=== PATIENT | male | born 1950 | race Caucasian/White ===

== ENCOUNTER 2016-06-10 17:17 | Inpatient (IN) | payer MEDICARE, OTHER ==
[~2016-06-10] VITALS: Ht 162.6 cm; Wt 75.0 kg
[2016-06-10] VITALS (8 sets, daily range): BP systolic 147–167; BP diastolic 69–81; PULSE 86–98; TEMP 98.9
[~2016-06-10 17:17] MED LIST: APR50 PO; ASP81 PO; ATOR40TA68 PO; CALC667T PO; ERGO500037 PO; FOLI-49 PO; GABA300C16 PO; HYDR-3498 PO; LANT3I SC; MONT10TA21 PO; NIFE60TA12 PO; NOVO3I SC; OMEP20CA16 PO; TAMS0.4C2 PO
[2016-06-10] MEDS ORDERED: LEVOFLOXACIN 500MG/D5W (PMX) 100 ML IV STA (17:36)
[2016-06-10] MEDS ORDERED: ALBUTEROL 0.5% (NEB) 2.5 MG/0.5 ML AMP INH ONE (18:00)
[2016-06-10] MEDS ORDERED: ACETAMINOPHEN 325 MG TAB PO ONE (18:00)
[2016-06-10] MEDS ORDERED: IPRATROPIUM (NEB) 0.5 MG/2.5 ML AMP INH ONE (18:00)
--- NOTE | 2016-06-10 18:11 | RADRPT ---
PROCEDURE: XR Chest. CLINICAL INDICATION: Shortness of breath. TECHNIQUE: Single frontal view. COMPARISON: 04/16/2016. FINDINGS: There is new bilateral interstitial disease consistent with pulmonary edema. The lungs are otherwis e clear with no focal airspace disease to suggest pneumonia. The heart is enlarged. There is no pleural effusion. There is no pneumothorax. IMPRESSION: 1. Interstitial pulmonary edema. 2. Cardiomegaly. RPTAT: QQ .Ken Jarvis MD, MD Date Time Electronically viewed and signed by .Ken Jarvis MD, MD on 06/10/2016 18:11 .R/
[2016-06-10 18:20] LABS: BASOPHILS % 0.3 % (0.0-2.0); EOSINOPHILS # 0.1 10^3/ul (0.0-0.5); EOSINOPHILS % 0.7 % (0.0-7.0); HEMATOCRIT 31.8 % (42.0-52.0); HEMOGLOBIN 10.5 g/dl (14.0-18.0); LYMPHOCYTES # 1.7 10^3/ul (0.8-2.9); LYMPHOCYTES % 12.7 % (15.0-51.0); MEAN CORPUSCULAR HEMOGLOBIN 28.6 pg (29.0-33.0); MEAN CORPUSCULAR HGB CONC 33.1 g/dl (32.0-37.0); MEAN CORPUSCULAR VOLUME 86.3 fl (82.0-101.0); MEAN PLATELET VOLUME 10.2 fl (7.4-10.4); MONOCYTE # 1.4 10^3/ul (0.3-0.9); MONOCYTES % 10.2 % (0.0-11.0); NEUTROPHIL # 10.3 10^3/ul (1.6-7.5); NEUTROPHILS % 76.1 % (39.0-77.0); PLATELET COUNT 167 10^3/UL (140-440); RED BLOOD COUNT 3.68 10^6/ul (4.70-6.10); RED CELL DISTRIBUTION WIDTH 15.9 % (11.5-14.5); UNCORRECTED WBC 13.5 10^3/ul (4.8-10.8); WHITE BLOOD COUNT 13.5 10^3/ul (4.8-10.8)
[2016-06-10 18:22] LABS: CONDITION 1; LH ANALYZER COMMENTS 1
[2016-06-10 18:25] LABS: ALBUMIN 4.4 g/dl (3.3-4.9)
[2016-06-10 18:26] LABS: CHLORIDE 93 mmol/L (97-110); POTASSIUM 5.2 mmol/L (3.5-5.1); SODIUM 139 mmol/L (135-144)
[2016-06-10 18:28] LABS: ANION GAP 26 (8-16); CARBON DIOXIDE 25 mmol/L (21-31); CREATININE 11.14 mg/dl (0.61-1.24)
[2016-06-10 18:29] LABS: ALANINE AMINOTRANSFERASE 23 IU/L (13-69); ALBUMIN/GLOBULIN RATIO 1.12; ALKALINE PHOSPHATASE 117 IU/L (42-121); ASPARTATE AMINO TRANSFERASE < 8 IU/L (15-46); BLOOD UREA NITROGEN 92 mg/dl (7-20); CALCIUM 8.8 mg/dl (8.4-10.2); GLUCOSE 163 mg/dl (70-220); TOTAL PROTEIN 8.3 g/dl (6.1-8.1)
[2016-06-10] MEDS ORDERED: ONDANSETRON 4 MG INJ IV PRN ×3 (20:00→21:30)
[2016-06-10] MEDS ORDERED: ACETAMINOPHEN 325 MG TAB PO PRN ×2 (20:00→20:30)
--- NOTE | 2016-06-10 20:01 | ERA ---
ER Documentation Chief Complaint Date/Time DATE: 06/10/16 TIME: 19:56 Chief Complaint weak, sob, fell x2 last night, twitiching, missed dialysis yest d/t fever HPI This is a 66-year-old dialysis patient who missed dialysis on Saturday. He says gotten shortness of breath over the past 2 days. Is having some dyspnea on exertion and orthopnea. Is also had a cough with occasional productive white sputum says that he has had subjective fever. But none documented. He says yesterday he felt very weak and his legs gave way twice but no syncope. He said he just feels general malaise and generalized weakness no focal neurological complaints. No chest pain no vomiting diarrhea or abdominal pain. ROS All systems reviewed and are negative except as per history of present illness. Medications Home Meds Active Scripts Insulin Glargine* (Lantus*) 100 Unit/Ml Soln, 15 UNIT SC QHS for 10 Days, #1 BOTTLE Prov:VLADIMIR CEDEÑO MD 04/25/16 Insulin Aspart* (Novolog Insulin Pen*) 100 Unit/Ml Soln, 4 UNIT SC AC MEALS for 10 Days, #1 BOTTLE Prov:VLADIMIR CEDEÑO MD 04/25/16 Hydrocodone Bit-Acetaminophen (Hydrocodone Bit-APAP) 5-325MG Tablet, 1 TAB PO Q6H Y for MODERATE PAIN LEVEL 4-6 for 10 Days, #30 TAB Prov:VLADIMIR CEDEÑO MD 04/25/16 Gabapentin* (Gabapentin*) 300 Mg Capsule, 300 MG PO BID for 30 Days, CAP Prov:MADI RAYMOND 03/20/16 Aspirin (Aspirin) 81 Mg Chew, 81 MG PO DAILY for 30 Days Prov:MADI RAYMOND 03/20/16 Hydralazine Hcl* (Hydralazine Hcl*) 50 Mg Tab, 50 MG PO TID, #90 TAB Prov:MILTON CARTER MD 11/08/15 Reported Medications Atorvastatin* (Atorvastatin*) 40 Mg Tablet, 40 MG PO DAILY 06/30/15 Folic Acid* (Folic Acid*) 1 Mg Tablet, 1 MG PO DAILY, TAB 11/18/14 Omeprazole* (Omeprazole*) 20 Mg Capsule.dr, 20 MG PO DAILY, CAP 11/18/14 Montelukast Sodium* (Singulair*) 10 Mg Tablet, 10 MG PO HS, TAB 11/18/14 Calcium Acetate (Calcium Acetate) 667 Mg Tablet, 667 MG PO TID 05/31/13 Ergocalciferol (Vitamin D2) (VITAMIN D2) 50,000 Unit Capsule, 55978 UNIT PO WEEKLY 05/31/13 Nifedipine* (Nifedical XL*) 60 Mg/Bottle Tab.osm.24, 60 MG PO BID 05/31/13 Tamsulosin Hcl* (Tamsulosin Hcl*) 0.4 Mg Cap.er.24h, 0.4 MG PO DAILY 05/31/13 Allergies Allergies: Coded Allergies: No Known Allergy (Unverified , 04/16/16) PMhx/Soc History of Surgery: Yes (RT SHOULDER SX) Anesthesia Reaction: No Hx Neurological Disorder: Yes (NEROPATHY) Hx Respiratory Disorders: No Hx Cardiac Disorders: Yes (HTN, HDL) Hx Psychiatric Problems: No Hx Miscellaneous Medical Probl: Yes (DM, END STAGE RENAL (DIALYSIS 3X/WEEK)) Hx Alcohol Use: No Hx Substance Use: No Hx Tobacco Use: No Smoking Status: Never smoker FmHx Family History: No coronary disease Physical Exam Vitals Vital Signs Date Time Temp Pulse Resp B/P Pulse Ox O2 Delivery O2 Flow Rate FiO2 06/10/16 19:00 98.9 106 25 168/69 96 Nasal Cannula 6.0 06/10/16 19:00 Nasal Cannula 6 06/10/16 19:00 Nasal Cannula 6.0 06/10/16 18:18 89 18 95 Nasal Cannula 2.0 06/10/16 17:23 100.8 93 28 168/77 87 Physical Exam Const: Well-developed, well-nourished Head: Atraumatic, normocephalic Eyes: Normal Conjunctiva, PERRLA, EOMI, normal sclera, no nystagmus ENT: Normal External Ears, Nose and Mouth, moist mucus membranes. Neck: Full range of motion. No meningismus, no lymphadenopathy. Resp: Some mild labored breathing with diffuse scattered rhonchi throughout lung gandara] Cardio: Regular rate and rhythm, no murmurs, S1 S2 present Abd: Soft, non tender x 4, non distended. Normal bowel sounds, no guarding or rebound, no pulsitile abdominal masses or bruits Skin: No petechiae or rashes, no ecchymosis , no maculopapular rash Back: No midline or flank tenderness Ext: No cyanosis, or edema, FROM x 4, normal inspection, neurovascularly intact x 4 Neur: Awake and alert, STR 5/5 x 4, sensation intact x 4, no focal findings, cerebellum intact Psych: Normal Mood and Affect Result Diagram: 06/10/16 7455 06/10/16 1755 Results 24 hrs Laboratory Tests Test 06/10/16 17:55 Alanine Aminotransferase (ALT/SGPT) 23IU/L Albumin 4.4g/dl Albumin/Globulin Ratio 1.12 Alkaline Phosphatase 117IU/L Anion Gap 26 Aspartate Amino Transf (AST/SGOT) < 8IU/L Basophils # 0.010^3/ul Basophils % 0.3% Blood Morphology Comment Blood Urea Nitrogen 92mg/dl Calcium Level 8.8mg/dl Carbon Dioxide Level 25mmol/L Chloride Level 93mmol/L Creatinine 11.14mg/dl Direct Bilirubin 0.00mg/dl Eosinophils # 0.110^3/ul Eosinophils % 0.7% Globulin 3.90g/dl Glucose Level 163mg/dl Hematocrit 31.8% Hemoglobin 10.5g/dl Indirect Bilirubin 0.0mg/dl Lymphocytes # 1.710^3/ul Lymphocytes % 12.7% Mean Corpuscular Hemoglobin 28.6pg Mean Corpuscular Hemoglobin Concent 33.1g/dl Mean Corpuscular Volume 86.3fl Mean Platelet Volume 10.2fl Monocytes # 1.410^3/ul Monocytes % 10.2% Neutrophils # 10.310^3/ul Neutrophils % 76.1% Nucleated Red Blood Cells # 0.010^3/ul Nucleated Red Blood Cells % 0.0/100WBC Platelet Count 05457^3/UL Potassium Level 5.2mmol/L Red Blood Count 3.6810^6/ul Red Cell Distribution Width 15.9% Sodium Level 139mmol/L Total Bilirubin 0.0mg/dl Total Protein 8.3g/dl White Blood Count 13.510^3/ul Current Medications Medications (Trade) Dose Ordered Sig/Sita Route PRN Reason Start Time Stop Time Status Last Admin Dose Admin Albuterol (Proventil 0.5% (Neb)) 7.5 mg ONCE ONCE INH 06/10/16 18:00 06/10/16 18:01 DC 06/10/16 18:16 Ipratropium [place] 1.5 mg 1.5 mg ONCE ONCE INH 06/10/16 18:00 06/10/16 18:01 DC 06/10/16 18:17 Levofloxacin/ Dextrose (Levaquin 500mg/ D5W 100 ml (Pmx)) 100 ml @ 100 mls/hr ONCE STAT IV 06/10/16 17:36 06/10/16 18:35 DC 06/10/16 18:52 Acetaminophen (Tylenol Tab) 650 mg ONCE ONCE PO 06/10/16 18:00 06/10/16 18:01 DC 06/10/16 18:52 Procedures/MDM PROCEDURE: XR Chest. CLINICAL INDICATION: Shortness of breath. TECHNIQUE: Single frontal view. COMPARISON: 04/16/2016. FINDINGS: There is new bilateral interstitial disease consistent with pulmonary edema. The lungs are otherwise clear with no focal airspace disease to suggest pneumonia. The heart is enlarged. There is no pleural effusion. There is no pneumothorax. IMPRESSION: 1. Interstitial pulmonary edema. 2. Cardiomegaly. RPTAT: QQ .Ken Jarvis MD, MD Date Time Electronically viewed and signed by .Ken Jarvis MD, MD on 06/10/2016 18:11 .R/ CC: LEANNE DURAN DO Patient's O2 sats 90% on room air on arrival. He is requiring a facemask to maintain adequate oxygenation. Spoke with Dr. Harris to get dialysis done. Patient was admitted to the hospital for dialysis and observation. Also spoke with panel doctor for admission. Patient is resting comfortably without any respiratory distress Departure Diagnosis: Primary Impression: Pulmonary edema Qualified Code: J81.0 - Acute pulmonary edema Additional Impression: Renal failure Condition: Stable LEANNE DURAN DO Jun 10, 2016 20:00
--- NOTE | 2016-06-10 20:28 | HP ---
Date/Time of Note Date/Time of Note DATE: 06/10/16 TIME: 20:20 Assessment/Plan VTE Prophylaxis VTE Prophylaxis Intervention: heparin Assessment/Plan Assessment/Plan 66 yo male with a past medical history of ESRD on HD (M/W/F), dyslipidemia, type II DM, PVD, Essential Hypertension, who came in for generalized weakness and shaking. 1. Atypical Pneumonia with fluid overload - will admit the patient to telemetry , consult nephrology for dialysis, continue with levaquin, follow - up cultures , monitor acute changes 2. leukocytosis /2 to #1 3. ESRD on HD - continue with nephro recs, dialysis, renagel, sensipar 4. Anemia of Chronic Kidney Disease - continue to monitor h/h, transfuse if hgb < 8 g/dL 5. Essential hypertension - continue with nifedipine/hydralazine 6. Type II DM - check hgba1c, lantus and novolog 7. Dyslipidemia - continue with statin 8. PVD - c/w aspirin 9. GI ppx - pepcid 10. DVT ppx - heparin answered all of his questions. as per clinical course. this history and physical took greater then 45 minutes to complete HPI/ROS Admit Date/Time Admit Date/Time 06/10/2016, 8:21 pm Hx of Present Illness 66 yo male with a past medical history of ESRD on HD (M/W/F), dyslipidemia, type II DM, PVD, Essential Hypertension, who came in for generalized weakness and shaking. He missed his last dialysis session because he had a cough and illness. States that he had intermittent fevers/chills, phlegm - greenish in color, with malaise and dizziness. Denies any chest pain, shortness of breath, nausea/vomiting/diarrhea/constipation, or other constitutional symptoms. Patient was recently admitted here on 04/17/2106 for vascular disease. ED course: Levaquin/Derek ROS 14 point review of systems completed, please refer to HPI for any positive findings PMH/Family/Social Past Medical History PVD Medical History: coronary artery disease, diabetes, high cholesterol, hypertension, renal disease Past Surgical History fistula, right 2nd toe gangrene I and D Past Surgical Hx: other Family History Significant Family History: no pertinent family hx Social History Alcohol Use: none Smoking Status: Never smoker Drug Use: none Exam/Review of Systems Vital Signs Vitals Vital Signs Date Time Temp Pulse Resp B/P Pulse Ox O2 Delivery O2 Flow Rate FiO2 06/10/16 19:00 98.9 106 25 168/69 96 Nasal Cannula 6.0 Exam Exam Gen Miladys: mild distress 2/2 to shakiness, AAOx4 HEENT: NC/AT, PERRLA, EOMI, no pharyngeal erythema, no tonsillar exudates, no lymphadenopathy, no JVD, no carotid bruits NECK: supple, no thyromegaly THORAX: symmetrical, no obvious deformities CV: S1S2, RRR, no M/G/R Lungs: bibasilar crackles, no rhonchi or wheezing noted Abd: soft, NT/ND, +BS, no rebound, no guarding, neg HSM EXT: trace edema, no ecchymosis, no clubbing, FROM, right 2nd toe amputation Neuro: CN II-XII grossly intact, no focal deficits Psych: good mentation, alert and oriented, good mood and affect Skin: C/D/I Labs Result Diagram: 06/10/16175406/10/161754 Procedures Procedures CXR IMPRESSION: 1. Interstitial pulmonary edema. 2. Cardiomegaly. XIOMARA CRONIN MD Jun 10, 2016 20:27
[2016-06-10] MEDS ORDERED: LORAZEPAM 2 MG INJ IV PRN (20:30)
[2016-06-10] MEDS ORDERED: DOCUSATE SODIUM 100 MG CAP PO PRN (20:30)
[2016-06-10] MEDS ORDERED: HYDROCODONE/APAP (5/325) TAB PO PRN (20:30)
[2016-06-10] MEDS ORDERED: ALBUTEROL/IPRATROPIUM (NEB) 3 ML AMP HHN PRN (20:30)
[2016-06-10] MEDS ORDERED: morphine 2 MG INJ IV PRN (20:30)
[2016-06-10] MEDS ORDERED: NACL 0.9% 3 ML SYG IV SCH (20:30)
[2016-06-10] MEDS ORDERED: NITROGLYCERIN (SL) 0.4 MG TAB SL PRN (20:30)
[2016-06-10] MEDS ORDERED: FAMOTIDINE 20 MG TAB PO SCH (21:00)
[2016-06-10] MEDS ORDERED: HEPARIN 5,000 UNIT/0.5 ML SYG SC SCH (21:00)
[2016-06-10] MEDS ORDERED: GLUCAGON 1 MG INJ IM PRN (21:00)
[2016-06-10] MEDS: INSULIN ASPART [NOVOLOG] 3 ML PEN SC SCH (21:00)
[2016-06-10] MEDS ORDERED: DEXTROSE 50% 50 ML SYRINGE IV PRN ×2 (21:00)
[2016-06-10] MEDS ORDERED: GLUCOSE GEL 15 GRAM TUBE BUCCAL PRN (21:00)
[2016-06-10] MEDS ORDERED: GLUCOSE GEL 15 GRAM TUBE PO PRN ×2 (21:00)
[2016-06-10] MEDS: INSULIN GLARGINE [LANtus] 3 ML PEN SC SCH (21:00)
[2016-06-10 22:28] LABS: CHOL/HDL RATIO 2.9 RATIO; MAGNESIUM 2.4 mg/dl (1.7-2.5)
[2016-06-10 22:47] LABS: CK-MB 1.42 ng/ml (0.0-2.4)
[2016-06-10 22:51] LABS: TROPONIN-I 0.296 ng/ml (0.00-0.12)
[2016-06-10 23:00] LABS: THYROID STIMULATING HORMONE 0.245 MIU/L (0.465-4.680)
[2016-06-10] MEDS: LEVOFLOXACIN 500MG/D5W (PMX) 100 ML IVPB SCH (23:48)
[2016-06-10] MEDS: MONTELUKAST 10 MG TAB PO SCH (23:48)
[2016-06-10] MEDS: GABAPENTIN 300 MG CAP PO SCH (23:50)
[2016-06-10] MEDS: CALCIUM ACETATE 667 MG CAP PO SCH (23:50)
[2016-06-11] VITALS (16 sets, daily range): BP systolic 102–169; BP diastolic 43–102; PULSE 49–94; RESP 16–20; Ht 162.6 cm; Wt 75.0 kg
[2016-06-11] MEDS: ACCUCHECK AT 2AM (Patients on SS coverage) XX SCH (02:00)
[2016-06-11] MEDS: NIFEdipine (XL) 60 MG TAB PO SCH ×3 (02:53→20:48)
[2016-06-11 03:23] LABS: CK-MB 1.77 ng/ml (0.0-2.4)
[2016-06-11 03:26] LABS: TROPONIN-I 0.502 ng/ml (0.00-0.12)
[2016-06-11] MEDS ORDERED: HEPARIN 1000 UNITS/ML 10 ML INJ IV PRN ×2 (03:30)
[2016-06-11] MEDS ORDERED: HEPARIN 1000 UNITS/ML 10 ML INJ IV ONE (03:30)
[2016-06-11] MEDS ORDERED: INSULIN ASPART [NOVOLOG] 3 ML PEN SC ONE (04:00)
[2016-06-11 04:11] LABS: BASOPHILS % 0.4 % (0.0-2.0); HEMATOCRIT 29.7 % (42.0-52.0); LYMPHOCYTES # 0.7 10^3/ul (0.8-2.9); LYMPHOCYTES % 6.4 % (15.0-51.0); MEAN CORPUSCULAR HEMOGLOBIN 28.7 pg (29.0-33.0); MEAN CORPUSCULAR HGB CONC 33.5 g/dl (32.0-37.0); MEAN CORPUSCULAR VOLUME 85.7 fl (82.0-101.0); MEAN PLATELET VOLUME 10.1 fl (7.4-10.4); MONOCYTE # 0.9 10^3/ul (0.3-0.9); MONOCYTES % 7.9 % (0.0-11.0); NEUTROPHIL # 9.5 10^3/ul (1.6-7.5); NEUTROPHILS % 85.3 % (39.0-77.0); PLATELET COUNT 152 10^3/UL (140-440); RED BLOOD COUNT 3.47 10^6/ul (4.70-6.10); RED CELL DISTRIBUTION WIDTH 16.4 % (11.5-14.5); UNCORRECTED WBC 11.1 10^3/ul (4.8-10.8); WHITE BLOOD COUNT 11.1 10^3/ul (4.8-10.8)
[2016-06-11 04:13] LABS: CONDITION 1; LH ANALYZER COMMENTS 1
[2016-06-11 04:20] LABS: POTASSIUM 5.5 mmol/L (3.5-5.1)
[2016-06-11 04:22] LABS: CREATININE 8.37 mg/dl (0.61-1.24)
[2016-06-11 04:23] LABS: CALCIUM 8.6 mg/dl (8.4-10.2)
[2016-06-11] MEDS: HEPARIN 25000 UNITS/250 ML 250 ML IV SCH ×3 (04:48→21:13)
[2016-06-11] MEDS: INSULIN ASPART [NOVOLOG] 3 ML PEN SC SCH ×8 (07:25→20:59)
[2016-06-11] MEDS: ASPIRIN 81 MG TAB PO SCH (09:10)
[2016-06-11] MEDS: FOLIC ACID 1 MG TAB PO SCH (09:10)
[2016-06-11] MEDS: CALCIUM ACETATE 667 MG CAP PO SCH ×3 (09:10→20:48)
[2016-06-11] MEDS: TAMSULOSIN (SR) 0.4 MG CAP PO SCH (09:11)
[2016-06-11] MEDS: GABAPENTIN 300 MG CAP PO SCH ×2 (09:11→20:48)
[2016-06-11] MEDS: ATORVASTATIN 40 MG TAB PO SCH (09:11)
[2016-06-11] MEDS: FAMOTIDINE 20 MG TAB PO SCH (09:11)
[2016-06-11] MEDS ORDERED: hydrALAzine 20 MG INJ IV PRN (10:00)
--- NOTE | 2016-06-11 10:02 | PN ---
Date/Time of Note Date/Time of Note DATE: 06/11/16 TIME: 09:56 Assessment/Plan VTE Prophylaxis VTE Prophylaxis Intervention: heparin Lines/Catheters IV [facility] Peripheral IV Urinary Cath still in place: No Assessment/Plan Chief Complaint/Hosp Course Assessment/Plan 66 yo male with a past medical history of ESRD on HD (M/W/F), dyslipidemia, type II DM, PVD, Essential Hypertension, who came in for generalized weakness and shaking. 1. Fluid overload - CXR = + pulm edema, possible PNA as well - appreciate nephrology consult, received dialysis yesterday - continue with levaquin, follow renal rec's - follow up cultures, monitor acute changes 2. leukocytosis 2/2 to #1 - improving - continue abx 3. ESRD on HD - continue with nephro recs, dialysis, renagel, sensipar 4. Anemia of Chronic Kidney Disease - continue to monitor h/h, transfuse if hgb < 8 g/dL 5. Essential hypertension - continue with nifedipine/hydralazine 6. Type II DM - hgba1c = 8.7 - continue lantus, novolog, and mod ISS 7. Dyslipidemia - continue with statin 8. PVD - c/w aspirin 9. GI ppx - pepcid 10. DVT ppx - heparin 11. elevated trop's - possible NSTEMI vs troponin leak from ESRD - continue heparin IV drip - will consult CV team as well Problems: Subjective 24 Hr Interval Summary Free Text/Dictation Pt received HD yesterday, had some AMS with leaving the room as well last night , but more stable this AM. Exam/Review of Systems Vital Signs Vitals Vital Signs Date Time Temp Pulse Resp B/P Pulse Ox O2 Delivery O2 Flow Rate FiO2 06/11/16 08:26 68 06/11/16 07:30 97.8 18 126/68 97 Room Air 06/11/16 05:23 3.0 Intake and Output 06/10/16 06/10/16 06/11/16 15:00 23:00 07:00 Intake Total 809 ml Output Total 4300 ml Balance -3491 ml Exam Exam Gen Miladys: less distress, alert presently HEENT: NC/AT, PERRLA, EOMI, no pharyngeal erythema, no tonsillar exudates, no lymphadenopathy, no JVD, no carotid bruits NECK: supple, no thyromegaly THORAX: symmetrical, no obvious deformities CV: S1S2, RRR, no M/G/R Lungs: bibasilar crackles, no rhonchi or wheezing noted Abd: soft, NT/ND, +BS, no rebound, no guarding, neg HSM EXT: trace edema, no ecchymosis, no clubbing, FROM, right 2nd toe amputation Neuro: CN II-XII grossly intact, no focal deficits Psych: good mentation, alert and oriented, good mood and affect Skin: C/D/I Results Result Diagram: 06/11/16 0358 06/11/16 0358 Results 24 hrs Laboratory Tests Test 06/10/16 17:55 06/10/16 22:00 06/11/16 02:35 06/11/16 03:06 Alanine Aminotransferase (ALT/SGPT) 23 Albumin 4.4 Albumin/Globulin Ratio 1.12 Alkaline Phosphatase 117 Anion Gap 26 H Aspartate Amino Transf (AST/SGOT) < 8 L Basophils # 0.0 Basophils % 0.3 Blood Morphology Comment Blood Urea Nitrogen 92 H Calcium Level 8.8 Carbon Dioxide Level 25 Chloride Level 93 L Creatinine 11.14 H Direct Bilirubin 0.00 Eosinophils # 0.1 Eosinophils % 0.7 Globulin 3.90 H Glucose Level 163 Hematocrit 31.8 L Hemoglobin 10.5 L Indirect Bilirubin 0.0 Lymphocytes # 1.7 Lymphocytes % 12.7 L Mean Corpuscular Hemoglobin 28.6 L Mean Corpuscular Hemoglobin Concent 33.1 Mean Corpuscular Volume 86.3 Mean Platelet Volume 10.2 Monocytes # 1.4 H Monocytes % 10.2 Neutrophils # 10.3 H Neutrophils % 76.1 Nucleated Red Blood Cells # 0.0 Nucleated Red Blood Cells % 0.0 Platelet Count 167 # Potassium Level 5.2 H Red Blood Count 3.68 L Red Cell Distribution Width 15.9 H Sodium Level 139 Total Bilirubin 0.0 L Total Protein 8.3 H White Blood Count 13.5 #H Cholesterol Level 87 L Cholesterol/HDL Ratio 2.9 Creatine Kinase 85 142 Creatine Kinase Index 1.7 1.2 Creatinine Kinase MB (Mass) 1.42 1.77 HDL Cholesterol 30 Hemoglobin A1c 8.7 H LDL Cholesterol, Calculated 38 Magnesium Level 2.4 Thyroid Stimulating Hormone (TSH) 0.245 L Triglycerides Level 93 Troponin I 0.296 *H 0.502 *H Bedside Glucose 392 H Test 06/11/16 03:58 06/11/16 07:58 Activated Partial Thromboplast Time 32.6 Anion Gap 22 H Basophils # 0.0 Basophils % 0.4 Blood Morphology Comment Blood Urea Nitrogen 63 H Calcium Level 8.6 Carbon Dioxide Level 29 Chloride Level 91 L Creatinine 8.37 #H Eosinophils # 0.0 Eosinophils % 0.0 Glucose Level 378 #H Hematocrit 29.7 L Hemoglobin 10.0 L Lymphocytes # 0.7 L Lymphocytes % 6.4 L Mean Corpuscular Hemoglobin 28.7 L Mean Corpuscular Hemoglobin Concent 33.5 Mean Corpuscular Volume 85.7 Mean Platelet Volume 10.1 Monocytes # 0.9 Monocytes % 7.9 Neutrophils # 9.5 H Neutrophils % 85.3 H Nucleated Red Blood Cells # 0.0 Nucleated Red Blood Cells % 0.0 Platelet Count 152 Potassium Level 5.5 H Red Blood Count 3.47 L Red Cell Distribution Width 16.4 H Sodium Level 136 White Blood Count 11.1 H Bedside Glucose 151 Medications Medications Current Medications Lorazepam (Ativan) 0.5 mg Q6H PRN IV ANXIETY; Start 06/10/16 at 20:30 Nitroglycerin (Nitroglycerin (Sl Tab) 0.4 Mg) 1 tab Q5M PRN SL CHEST PAIN; Start 06/10/16 at 20:30 Acetaminophen (Tylenol Tab) 650 mg Q6H PRN PO PAIN LEVEL 1-3 OR FEVER; Start at 20:30 Acetaminophen/ Hydrocodone Bitart ([place] (5/325)) 1 tab Q6H PRN PO PAIN LEVEL 4 -6 Last administered on 06/11/16 04:03; Admin Dose 1 TAB; Start 06/10/16 at 20: 30 Morphine Sulfate (morphine) 2 mg Q4H PRN IV PAIN LEVEL 7-10; Start 06/10/16 at 20:30 Docusate Sodium 100 mg 100 mg Q12H PRN PO CONSTIPATION; Start 06/10/16 at 20:30 Levofloxacin/ Dextrose (Levaquin 500mg/ D5W 100 ml (Pmx)) 100 ml @ 100 mls/hr Q48H IVPB Last administered on 06/10/16 23:48; Admin Dose 100 MLS/HR; Start at 20:30 Aspirin (Aspirin) 81 mg DAILY PO Last administered on 06/11/16 09:10; Admin Dose 81 MG; Start 06/11/16 at 09:00 Atorvastatin Calcium (Lipitor) 40 mg DAILY PO Last administered on 06/11/16 09 :11; Admin Dose 40 MG; Start 06/11/16 at 09:00 Calcium Acetate (Phoslo) 667 mg TID PO Last administered on 06/11/16 09:10; Admin Dose 667 MG; Start 06/10/16 at 21:00 Ergocalciferol (Drisdol) 50,000 unit Sa@09 PO ; Start 06/16/16 at 09:00 Folic Acid (Folic Acid) 1 mg DAILY PO Last administered on 06/11/16 09:10; Admin Dose 1 MG; Start 06/11/16 at 09:00 Gabapentin (Neurontin) 300 mg BID PO Last administered on 06/11/16 09:11; Admin Dose 300 MG; Start 06/10/16 at 21:00 Hydralazine HCl (Apresoline) 50 mg TID PO Last administered on 06/11/16 09:11 ; Admin Dose 50 MG; Start 06/10/16 at 21:00 Insulin Glargine (Lantus) 15 unit QHS SC ; Start 06/10/16 at 21:00 Montelukast Sodium (Singulair) 10 mg HS PO Last administered on 06/10/16 23:48 ; Admin Dose 10 MG; Start 06/10/16 at 21:00 Nifedipine (Procardia Xl) 60 mg BID PO Last administered on 06/11/16 09:12; Admin Dose 60 MG; Start 06/10/16 at 21:00 Tamsulosin HCl (Flomax) 0.4 mg DAILY PO Last administered on 06/11/16 09:11; Admin Dose 0.4 MG; Start 06/11/16 at 09:00 Famotidine (Pepcid) 20 mg DAILY PO Last administered on 06/11/16 09:11; Admin Dose 20 MG; Start 06/11/16 at 09:00 Diagnostic Test (Pha) (Accucheck) 1 ea 02 XX ; Start 06/11/16 at 02:00 Miscellaneous Information 1 ea NOTE XX ; Start 06/10/16 at 21:00 Glucose (Glutose) 15 gm Q15M PRN PO DECREASED GLUCOSE; Start 06/10/16 at 21:00 Glucose (Glutose) 22.5 gm Q15M PRN PO DECREASED GLUCOSE; Start 06/10/16 at 21: 00 Dextrose (D50w Syringe) 25 ml Q15M PRN IV DECREASED GLUCOSE; Start 06/10/16 at 21:00 Dextrose (D50w Syringe) 50 ml Q15M PRN IV DECREASED GLUCOSE; Start 06/10/16 at 21:00 Glucagon (Glucagen) 1 mg Q15M PRN IM DECREASED GLUCOSE; Start 06/10/16 at 21:00 Glucose (Glutose) 15 gm Q15M PRN BUCCAL DECREASED GLUCOSE; Start 06/10/16 at 21 :00 Ondansetron HCl (Zofran Inj) 4 mg Q6H PRN IV NAUSEA AND/OR VOMITING; Start at 21:30 Influenza Virus Vaccine (Fluzone) 0.5 ml ONCE ONCE IM* ; Start 06/12/16 at 12:00 ; Stop 06/12/16 at 12:01 Miscellaneous Information (* Miscellaneous Pharmacy Order) HYPOGLYCEMIA PROTOCOL w... ONCE ONCE XX ; Start 06/11/16 at 10:00; Stop 06/11/16 at 10:01; Status UNV Miscellaneous Information (* Miscellaneous Pharmacy Order) Discontinue Glyburide , Glipizide,... ONCE ONCE XX ; Start 06/11/16 at 10:00; Stop 06/11/16 at 10:01 ; Status UNV Miscellaneous Information (* Miscellaneous Pharmacy Order) Discontinue all previ... ONCE ONCE XX ; Start 06/11/16 at 10:00; Stop 06/11/16 at 10:01; Status UNV Diagnostic Test (Pha) (Accucheck) 1 ea 02 XX ; Start 06/12/16 at 02:00; Status UNV Hydralazine HCl (Apresoline) 10 mg Q6H PRN IV ELEVATED BLOOD PRESSURE; Start at 10:00; Status UNV [address] Jun 11, 2016 10:02
--- NOTE | 2016-06-11 10:15 | CONS ---
Date/Time of Note Date/Time of Note DATE: 06/11/16 TIME: 10:12 Assessment/Plan Assessment/Plan Chief Complaint/Hosp Course ESRD PUL EDEMA LUNG INFILTERATE DM HTM HYPERKALEMIIA PLAN HD Problems: Consultation Date/Type/Reason Admit Date/Time Jun 10, 2016 at 19:56 Initial Consult Date Type of Consultation: RENAL 24 HR Interval Summary Constitutional: other (SOB) Exam/Review of Systems Vital Signs Vitals Vital Signs Date Time Temp Pulse Resp B/P Pulse Ox O2 Delivery O2 Flow Rate FiO2 06/11/16 08:26 68 06/11/16 07:30 97.8 18 126/68 97 Room Air 06/11/16 05:23 3.0 Intake and Output 06/10/16 06/10/16 06/11/16 15:00 23:00 07:00 Intake Total 809 ml Output Total 4300 ml Balance -3491 ml Exam Neck: supple Respiratory: diminished breath sounds Cardiovascular: regular rate and rhythm Gastrointestinal: bowel sounds (+), soft Musculoskeletal: nl extremities to inspection Extremities: No edema Neurological: SKI PATROL DIRECTOR II-XII intact Results Result Diagram: 06/11/16 0358 06/11/16 0358 Results 24 hrs Laboratory Tests Test 06/10/16 17:55 06/10/16 22:00 06/11/16 02:35 06/11/16 03:06 Alanine Aminotransferase (ALT/SGPT) 23 Albumin 4.4 Albumin/Globulin Ratio 1.12 Alkaline Phosphatase 117 Anion Gap 26 H Aspartate Amino Transf (AST/SGOT) < 8 L Basophils # 0.0 Basophils % 0.3 Blood Morphology Comment Blood Urea Nitrogen 92 H Calcium Level 8.8 Carbon Dioxide Level 25 Chloride Level 93 L Creatinine 11.14 H Direct Bilirubin 0.00 Eosinophils # 0.1 Eosinophils % 0.7 Globulin 3.90 H Glucose Level 163 Hematocrit 31.8 L Hemoglobin 10.5 L Indirect Bilirubin 0.0 Lymphocytes # 1.7 Lymphocytes % 12.7 L Mean Corpuscular Hemoglobin 28.6 L Mean Corpuscular Hemoglobin Concent 33.1 Mean Corpuscular Volume 86.3 Mean Platelet Volume 10.2 Monocytes # 1.4 H Monocytes % 10.2 Neutrophils # 10.3 H Neutrophils % 76.1 Nucleated Red Blood Cells # 0.0 Nucleated Red Blood Cells % 0.0 Platelet Count 167 # Potassium Level 5.2 H Red Blood Count 3.68 L Red Cell Distribution Width 15.9 H Sodium Level 139 Total Bilirubin 0.0 L Total Protein 8.3 H White Blood Count 13.5 #H Cholesterol Level 87 L Cholesterol/HDL Ratio 2.9 Creatine Kinase 85 142 Creatine Kinase Index 1.7 1.2 Creatinine Kinase MB (Mass) 1.42 1.77 HDL Cholesterol 30 Hemoglobin A1c 8.7 H LDL Cholesterol, Calculated 38 Magnesium Level 2.4 Thyroid Stimulating Hormone (TSH) 0.245 L Triglycerides Level 93 Troponin I 0.296 *H 0.502 *H Bedside Glucose 392 H Test 06/11/16 03:58 06/11/16 07:58 Activated Partial Thromboplast Time 32.6 Anion Gap 22 H Basophils # 0.0 Basophils % 0.4 Blood Morphology Comment Blood Urea Nitrogen 63 H Calcium Level 8.6 Carbon Dioxide Level 29 Chloride Level 91 L Creatinine 8.37 #H Eosinophils # 0.0 Eosinophils % 0.0 Glucose Level 378 #H Hematocrit 29.7 L Hemoglobin 10.0 L Lymphocytes # 0.7 L Lymphocytes % 6.4 L Mean Corpuscular Hemoglobin 28.7 L Mean Corpuscular Hemoglobin Concent 33.5 Mean Corpuscular Volume 85.7 Mean Platelet Volume 10.1 Monocytes # 0.9 Monocytes % 7.9 Neutrophils # 9.5 H Neutrophils % 85.3 H Nucleated Red Blood Cells # 0.0 Nucleated Red Blood Cells % 0.0 Platelet Count 152 Potassium Level 5.5 H Red Blood Count 3.47 L Red Cell Distribution Width 16.4 H Sodium Level 136 White Blood Count 11.1 H Bedside Glucose 151 Medications Medications Current Medications Lorazepam (Ativan) 0.5 mg Q6H PRN IV ANXIETY; Start 06/10/16 at 20:30 Nitroglycerin (Nitroglycerin (Sl Tab) 0.4 Mg) 1 tab Q5M PRN SL CHEST PAIN; Start 06/10/16 at 20:30 Acetaminophen (Tylenol Tab) 650 mg Q6H PRN PO PAIN LEVEL 1-3 OR FEVER; Start at 20:30 Acetaminophen/ Hydrocodone Bitart ([place] (5/325)) 1 tab Q6H PRN PO PAIN LEVEL 4 -6 Last administered on 06/11/16t 04:03; Admin Dose 1 TAB; Start 06/10/16 at 20: 30 Morphine Sulfate (morphine) 2 mg Q4H PRN IV PAIN LEVEL 7-10; Start 06/10/16 at 20:30 Docusate Sodium 100 mg 100 mg Q12H PRN PO CONSTIPATION; Start 06/10/16 at 20:30 Levofloxacin/ Dextrose (Levaquin 500mg/ D5W 100 ml (Pmx)) 100 ml @ 100 mls/hr Q48H IVPB Last administered on 06/10/16 23:48; Admin Dose 100 MLS/HR; Start at 20:30 Aspirin (Aspirin) 81 mg DAILY PO Last administered on 06/11/16 09:10; Admin Dose 81 MG; Start 06/11/16 at 09:00 Atorvastatin Calcium (Lipitor) 40 mg DAILY PO Last administered on 06/11/16 09 :11; Admin Dose 40 MG; Start 06/11/16 at 09:00 Calcium Acetate (Phoslo) 667 mg TID PO Last administered on 06/11/16 09:10; Admin Dose 667 MG; Start 06/10/16 at 21:00 Ergocalciferol (Drisdol) 50,000 unit Sa@09 PO ; Start 06/16/16 at 09:00 Folic Acid (Folic Acid) 1 mg DAILY PO Last administered on 06/11/16 09:10; Admin Dose 1 MG; Start 06/11/16 at 09:00 Gabapentin (Neurontin) 300 mg BID PO Last administered on 06/11/16 09:11; Admin Dose 300 MG; Start 06/10/16 at 21:00 Hydralazine HCl (Apresoline) 50 mg TID PO Last administered on 06/11/16 09:11 ; Admin Dose 50 MG; Start 06/10/16 at 21:00 Insulin Glargine (Lantus) 15 unit QHS SC ; Start 06/10/16 at 21:00 Montelukast Sodium (Singulair) 10 mg HS PO Last administered on 06/10/16 23:48 ; Admin Dose 10 MG; Start 06/10/16 at 21:00 Nifedipine (Procardia Xl) 60 mg BID PO Last administered on 06/11/16 09:12; Admin Dose 60 MG; Start 06/10/16 at 21:00 Tamsulosin HCl (Flomax) 0.4 mg DAILY PO Last administered on 06/11/16 09:11; Admin Dose 0.4 MG; Start 06/11/16 at 09:00 Famotidine (Pepcid) 20 mg DAILY PO Last administered on 06/11/16 09:11; Admin Dose 20 MG; Start 06/11/16 at 09:00 Diagnostic Test (Pha) (Accucheck) 1 ea 02 XX ; Start 06/11/16 at 02:00 Miscellaneous Information 1 ea NOTE XX ; Start 06/10/16 at 21:00 Glucose (Glutose) 15 gm Q15M PRN PO DECREASED GLUCOSE; Start 06/10/16 at 21:00 Glucose (Glutose) 22.5 gm Q15M PRN PO DECREASED GLUCOSE; Start 06/10/16 at 21: 00 Dextrose (D50w Syringe) 25 ml Q15M PRN IV DECREASED GLUCOSE; Start 06/10/16 at 21:00 Dextrose (D50w Syringe) 50 ml Q15M PRN IV DECREASED GLUCOSE; Start 06/10/16 at 21:00 Glucagon (Glucagen) 1 mg Q15M PRN IM DECREASED GLUCOSE; Start 06/10/16 at 21:00 Glucose (Glutose) 15 gm Q15M PRN BUCCAL DECREASED GLUCOSE; Start 06/10/16 at 21 :00 Ondansetron HCl (Zofran Inj) 4 mg Q6H PRN IV NAUSEA AND/OR VOMITING; Start at 21:30 Influenza Virus Vaccine (Fluzone) 0.5 ml ONCE ONCE IM* ; Start 06/12/16 at 12:00 ; Stop 06/12/16 at 12:01 Diagnostic Test (Pha) (Accucheck) 1 ea 02 XX ; Start 06/12/16 at 02:00 Hydralazine HCl (Apresoline) 10 mg Q6H PRN IV ELEVATED BLOOD PRESSURE; Start at 10:00 EDILBERTO RODRIGUEZ MD Jun 11, 2016 10:15
[2016-06-11 16:22] LABS: ADD UMIC YES; URINE BILIRUBIN (Dip) NEGATIVE (NEGATIVE); URINE BLOOD (Dip) 2+ (NEGATIVE); URINE COLOR LT. YELLOW (YELLOW); URINE GLUCOSE (Dip) >=1000 % (NEGATIVE); URINE KETONES (Dip) NEGATIVE (NEGATIVE); URINE LEUKOCYTE ESTERASE (Dip) NEGATIVE (NEGATIVE); URINE NITRITE (Dip) NEGATIVE (NEGATIVE); URINE TOTAL PROTEIN (Dip) 4+ (NEGATIVE); URINE UROBILINOGEN (Dip) 0.2 E.U./dL (0.1-1.0)
[2016-06-11] MEDS ORDERED: CLOPIDOGREL 75 MG TAB PO ONE (16:30)
[2016-06-11 16:43] LABS: BACTERIA,URINE FEW
--- NOTE | 2016-06-11 16:54 | CONS ---
DATE OF ADMISSION: 06/10/2016 DATE OF CONSULTATION: 06/11/2016 REFERRING PHYSICIAN: Dr. Argueta. REASON FOR CONSULTATION: Abnormal troponin. CHIEF COMPLAINT: Shortness of breath, dizziness. HISTORY OF PRESENT ILLNESS: Thank you for this referral. The patient is a very poor historian. We reviewed the old chart and had a discussion with the staff and physicians. This is a 66-year-old H ispanic gentleman with history of renal failure on dialysis, peripheral vascular disease, diabetes and hypertension who came to emergency room with above complaint. The patient said he came in [facility] of general weakness, shaking, dizziness and shortness of breath. He said he has had a cough and an illness lately and has missed his dialysis. The patient was noted to be in fluid overload is bailee ng dialyzed. Troponin has become positive for which I was kindly asked to treat. The patient also has phlegm with green sputum. He said that he has had a "heart attack" 4 or 5 years ago when he had similar symptoms. PAST MEDICAL HISTORY: History of peripheral vascular disease, history of coronary artery disease an d possibly RI in the past. He is unclear of what kind of workup he has had done before. History of diabetes, dyslipidemia, hypertension, renal failure on dialysis and peripheral vascular disease. PAST SURGICAL HISTORY: History of fistula placement, gangrene of toe, I and D. FAMILY HISTORY: No reported early coronary artery disease. SOCIAL HISTORY: The patient does not smoke or drink. ALLERGIES: NO REPORTED ALLERGIES. MEDICATIONS: As per medication reconciliation, personally reviewed. PHYSICAL EXAMINATION: VITAL SIGNS: Temperature 98.2, heart rate of 70, blood pressure 126/58, respiration rate of 16, sat urating 93%. HEENT: Normocephalic, atraumatic. Pupils are equal. CARDIOVASCULAR: Regular rate and rhythm, systolic murmur. PULMONARY: No wheezes now, minimal rhonchi at the base. GASTROINTESTINAL: Soft, nontender. EXTREMITIES: Trivial edema. NEUROLOGIC: Awake, responds appropriately. PSYCHIATRIC: Appears to be calm and pleasant. LABORATORY: Chest x-ray shows history of pulmonary edema, cardiomegaly. WBC of 11.1, hemoglobin 10 .0, platelets of 152. Sodium 136, potassium 5.5, BUN of 63, creatinine 8.37, glucose 378. Troponin of 0.296, 0.502. CK total is 85 and 142 with MB fraction of 1.4 and 1.77. EKG was personally reviewed, showed normal sinus rhythm, normal ECG, which was done just now at my r equest. Chest x-ray shows history of pulmonary edema as mentioned. ASSESSMENT AND PLAN: 1. Abnormal troponin. Rule out possible non-ST elevation myocardial infarction versus others. 2. Fluid overload status/congestive heart failure, acute on chronic, probably secondary to fluid ov erload. 3. Renal failure on dialysis. 4. Peripheral vascular disease. 5. Possible pneumonia. 6. Hypertension. 7. Diabetes. 8. Dyslipidemia with possible myocardial infarction in the past. RECOMMENDATIONS: I will continue with the aspirin. The patient is being dialyzed. Will repeat the cardiac enzymes including CK, CK-MB and troponin now. We will check the lipid panel in a.m. Stati n was initiated to be continued. Diabetic management as per internal medicine. Beta genet will b e initiated. Will follow with cardiac enzymes. If it continues to be elevated, we will consider ca rdiac catheterization, otherwise will consider stress studies. Dictated By: ROBINSON BERNAL/IMANI Conf#: [id number] DID#: [id number]
[2016-06-11 17:13] LABS: CK-MB 1.48 ng/ml (0.0-2.4)
[2016-06-11 17:24] LABS: TROPONIN-I 0.432 ng/ml (0.00-0.12)
--- NOTE | 2016-06-11 17:44 | RADRPT ---
Echocardiogram Report Patient Name: SRINI SHARPE Gender: Male Date: 1950 Study Date: 11-Jun-2016 Anesthesia Director: Huy Grewal [facility] Location: 521 Ref. Physician: ROBINSON MONROE Quality: Good Procedures: Transthoracic echocardiogram with complete 2D, M-Mode, and doppler examination. Indications: Evaluate Left Ventricular function. 2D/M Mode Doppler Measurement Value Normal Ranges Measurement Value Normal Ranges LVIDd 2D 4.7 3.5 - 5.6 cm AV Peak [place] 2.0 m/sec LVIDs 2D 3.3 2.1 - 4.1 cm AV Peak PG 15.2 mmHg LVPWd 2D 1.1 0.6 - 1.1 cm LVOT Peak [place] 1.2 m/sec IVSd 2D 1.1 0.6 - 1.1 cm LVOT Peak PG 6.0 mmHg AoR Diam 2D 2.8 2.0 - 3.7 cm MV E Peak [place] 1.4 m/sec EDV 2D 103.6 cm3 MV A Peak [place] 1.3 m/sec ESV 2D 36.4 cm3 MV E/A 1.1 LA Dimen 2D 4.3 2.3 - 4.0 cm MV Decel Time 222 msec MV Decel [place] 6 MV E/A 1.1 TR Peak [place] 2.5 m/sec TR Peak PG 25.7 mmHg RVSP 29.0 mmHg Findings Left Ventricle: Normal left ventricular systolic function. Normal left ventricular cavity size. Normal left ventricular wall thickness. Ejection fraction is visually estimated at 65 %. Tissue Doppler/Mitral Doppler indices are consistent with pseudonormalization with mildly elevated left atrial pressure (Stage II diastolic dysfunction). Right Ventricle: Normal right ventricular size. Normal right ventricular systolic function. Left Atrium: There is mild enlargement of left atrium. Right Atrium: The right atrium is normal in size. Mitral Valve: Moderate mitral leaflet calcification. Mild mitral annular calcification. There is trace to mild mitral valve regurgitation. Aortic Valve: Aortic sclerosis without stenosis. Aortic cusps appear mildly calcified. Tricuspid Valve: Estimated peak PA systolic pressure 36 mmHg. There is mild tricuspid regurgitation. Pericardium: Normal pericardium with no significant pericardial effusion. Aorta: Normal aortic root. IVC: Normal size and normal respiratory collapse consistent with normal right atrial pressure. Conclusions 1.Normal left ventricular systolic function. Normal left ventricular cavity size. Normal left ventricular wall thickness. Ejection fraction is visually estimated at 65 %. Tissue Doppler/Mitral Doppler indices are consistent with pseudonormalization with mildly elevated left atrial pressure (Stage II diastolic dysfunction). 2.There is mild enlargement of left atrium. 3.Moderate mitral leaflet calcification. Mild mitral annular calcification. There is trace to mild mitral valve regurgitation. Thickened leaflets. vegetation can not be ruled out. 4.Aortic sclerosis without stenosis. Aortic cusps appear mildly calcified. 5.Estimated peak PA systolic pressure 36 mmHg. There is mild tricuspid regurgitation. Electronically Signed By: Robinson Monroe 11-Jun-2016 17:43:40 -0800 Patient Name: SRINI SHARPE Study Date: 11-Jun-[id number]
--- NOTE | 2016-06-11 19:12 | QN ---
Documentation Comment [id number] Alfred MD Jun 11, 2016 19:12
[2016-06-11] MEDS: METOPROLOL 25 MG TAB PO SCH (20:47)
[2016-06-11] MEDS: MONTELUKAST 10 MG TAB PO SCH (20:48)
[2016-06-11] MEDS: INSULIN GLARGINE [LANtus] 3 ML PEN SC SCH (20:58)
[2016-06-12] VITALS (12 sets, daily range): BP systolic 103–126; BP diastolic 56–72; PULSE 67–75; RESP 16–20
[2016-06-12] MEDS: ACCUCHECK XX SCH (02:15)
[2016-06-12] MEDS: ACCUCHECK AT 2AM (Patients on SS coverage) XX SCH (02:16)
[2016-06-12 03:20] LABS: BASOPHILS % 0.4 % (0.0-2.0); EOSINOPHILS # 0.2 10^3/ul (0.0-0.5); EOSINOPHILS % 1.7 % (0.0-7.0); HEMATOCRIT 29.5 % (42.0-52.0); HEMOGLOBIN 9.8 g/dl (14.0-18.0); LYMPHOCYTES # 1.4 10^3/ul (0.8-2.9); LYMPHOCYTES % 15.8 % (15.0-51.0); MEAN CORPUSCULAR HEMOGLOBIN 28.6 pg (29.0-33.0); MEAN CORPUSCULAR HGB CONC 33.1 g/dl (32.0-37.0); MEAN CORPUSCULAR VOLUME 86.2 fl (82.0-101.0); MEAN PLATELET VOLUME 10.2 fl (7.4-10.4); MONOCYTE # 1.2 10^3/ul (0.3-0.9); MONOCYTES % 13.1 % (0.0-11.0); NEUTROPHIL # 6.3 10^3/ul (1.6-7.5); PLATELET COUNT 161 10^3/UL (140-440); RED BLOOD COUNT 3.42 10^6/ul (4.70-6.10); RED CELL DISTRIBUTION WIDTH 15.9 % (11.5-14.5); UNCORRECTED WBC 9.1 10^3/ul (4.8-10.8); WHITE BLOOD COUNT 9.1 10^3/ul (4.8-10.8)
[2016-06-12 03:22] LABS: CONDITION 1; LH ANALYZER COMMENTS 1
[2016-06-12 03:35] LABS: INR 1.18; PROTIME 15.1 Sec (12.2-14.2); PT RATIO 1.2
[2016-06-12 03:54] LABS: POTASSIUM 4.8 mmol/L (3.5-5.1)
[2016-06-12 03:56] LABS: CREATININE 7.4 mg/dl (0.61-1.24)
[2016-06-12] MEDS: HEPARIN 25000 UNITS/250 ML 250 ML IV SCH ×2 (03:56→11:55)
[2016-06-12 03:57] LABS: ALBUMIN/GLOBULIN RATIO 1.05; BILIRUBIN,INDIRECT 0.3 mg/dl (0-1.1); BILIRUBIN,TOTAL 0.3 mg/dl (0.2-1.3); CALCIUM 8.8 mg/dl (8.4-10.2); TOTAL PROTEIN 7.8 g/dl (6.1-8.1)
[2016-06-12 03:58] LABS: MAGNESIUM 2.3 mg/dl (1.7-2.5)
[2016-06-12 04:12] LABS: CK-MB 1.3 ng/ml (0.0-2.4); TROPONIN-I 0.319 ng/ml (0.00-0.12)
--- NOTE | 2016-06-12 04:34 | CONS ---
DATE OF ADMISSION: 06/10/2016 DATE OF CONSULTATION: TYPE OF CONSULTATION: Nephrology. HISTORY OF PRESENT ILLNESS: The patient is a 66-year-old male who has a history of ESRD, hypertensi on, and diabetes mellitus and presented with shortness of breath, cough, and history of anemia. The patient is being admitted for further management. The patient's potassium 5.2, hematocrit 31.8. W BC 13.5 at the time of admission. Denies any chest pain at this point. PAST MEDICAL HISTORY: Please review the old chart for detailed history. The patient has history of PVD, history of ESRD, hypertension, diabetes mellitus, atherosclerotic heart disease, dyslipidemia, diabetic retinopathy, history of AV fistula placement, history of catheter sepsis in the past. ALLERGY HISTORY: NEGATIVE. FAMILY HISTORY: Noncontributory. SOCIAL HISTORY: He denies. MEDICATION HISTORY: Listed as the patient is currently on 1. Tylenol. 2. Albuterol. 3. Aspirin. 4. Lipitor. 5. Calcium acetate. 6. Drisdol. 7. Pepcid. 8. Folic acid. 9. Gabapentin. 10. Glucagon. 11. Hydralazine. 12. Lantus. 13. Lorazepam. 14. Metoprolol. 15. Singulair. 16. Morphine. 17. Nifedipine. 18. Nitroglycerin. 19. Zofran. 20. Flomax. REVIEW OF SYSTEMS: HEENT: Unremarkable. RESPIRATORY: Short of breath, cough. CARDIOVASCULAR: No chest pain, palpitation. ABDOMEN: No dyspepsia. EXTREMITIES: No swelling. PHYSICAL EXAMINATION: GENERAL: The patient is awake, alert, not in any distress. VITAL SIGNS: Pulse 71, blood pressure 120/58. HEAD: Atraumatic, normocephalic. No pale conjunctivae or icterus. NECK: Supple. LUNGS: Basilar rales noted. CARDIOVASCULAR: S1, S2 normal. Systolic murmur . ABDOMEN: Soft, nontender. Bowel sounds present. No palpable mass or hepatosplenomegaly. No guard ing, rebound tenderness. EXTREMITIES: No cyanosis, clubbing. Trace edema. CENTRAL NERVOUS SYSTEM: The patient is awake, alert. No deficit. LABORATORY DATA: WBC 13.5, , hematocrit 29.7. Potassium 5.5, sodium 136, BUN 63, creatinine 8 .37. Chest x-ray shows the patient has interstitial pulmonary edema. IMPRESSION: 1. Pulmonary edema. 2. Hyperkalemia. 3. End-stage renal disease. 4. Leukocytosis. 5. Anemia. 6. Rule out underlying pneumonia. 7. Atherosclerotic heart disease. 8. Dyslipidemia. 9. Rule out myocardial infarction. PLAN: To continue hemodialysis with sliding scale. The patient is being followed by barker operator a s well the patient's laboratory data will be ordered, and dialysis will be done again tomorrow. Thank you, Dr. Colunga, for kindly asking me to see this patient in consultation. Dictated By: EDILBERTO RODRIGUEZ MD BS/NTS Conf#: [id number] DID#: [id number]
[2016-06-12] MEDS: INSULIN ASPART [NOVOLOG] 3 ML PEN SC SCH ×7 (07:55→20:33)
[2016-06-12 08:50] LABS: THYROID STIMULATING HORMONE 0.728 MIU/L (0.465-4.680)
[2016-06-12] MEDS: GABAPENTIN 300 MG CAP PO SCH ×2 (09:00→21:13)
[2016-06-12] MEDS: TAMSULOSIN (SR) 0.4 MG CAP PO SCH (09:00)
[2016-06-12] MEDS: NIFEdipine (XL) 60 MG TAB PO SCH ×2 (09:00→21:13)
[2016-06-12] MEDS: METOPROLOL 25 MG TAB PO SCH ×2 (09:00→21:29)
[2016-06-12] MEDS: FOLIC ACID 1 MG TAB PO SCH (09:00)
[2016-06-12] MEDS: ASPIRIN 81 MG TAB PO SCH (09:00)
[2016-06-12] MEDS: ATORVASTATIN 40 MG TAB PO SCH (09:00)
[2016-06-12] MEDS: CALCIUM ACETATE 667 MG CAP PO SCH ×3 (09:00→21:14)
--- NOTE | 2016-06-12 10:52 | PN ---
Date/Time of Note Date/Time of Note DATE: 06/12/16 TIME: 10:48 Assessment/Plan VTE Prophylaxis VTE Prophylaxis Intervention: heparin Lines/Catheters IV C[facility]ter Type [facility]from [facility] Peripheral IV Urinary Cath still in place: No Assessment/Plan Chief Complaint/Hosp Course Assessment/Plan 66 yo male with a past medical history of ESRD on HD (M/W/F), dyslipidemia, type II DM, PVD, Essential Hypertension, who came in for generalized weakness and shaking. 1. Fluid overload - CXR = + pulm edema, possible PNA as well - appreciate nephrology consult, received dialysis the last 2 days - continue with levaquin, follow renal rec's - follow up cultures, monitor acute changes 2. leukocytosis 2/2 to #1 - improving - continue abx 3. ESRD on HD - continue with nephro recs, dialysis, renagel, sensipar 4. Anemia of Chronic Kidney Disease - continue to monitor h/h, transfuse if hgb < 8 g/dL 5. Essential hypertension - continue with nifedipine/hydralazine 6. Type II DM - hgba1c = 8.7 - continue lantus, novolog, and mod ISS 7. Dyslipidemia - continue with statin 8. PVD - c/w aspirin 9. GI ppx - pepcid 10. DVT ppx - heparin 11. elevated trop's - possible NSTEMI vs troponin leak from ESRD - continue heparin IV drip - f/u CV team rec's 12. PVD - pt appears to have darkened right 2nd digit - will consult podiatry and vascular surgery teams. Problems: Subjective 24 Hr Interval Summary Free Text/Dictation Pt denies cp, seen by CV team yesterday. Pt asking about vascular and podiatry consults (pt sees them in clinic for PVD). Had HD yesterday. Exam/Review of Systems Vital Signs Vitals Vital Signs Date Time Temp Pulse Resp B/P Pulse Ox O2 Delivery O2 Flow Rate FiO2 06/12/16 08:13 67 06/12/16 07:33 98.3 20 115/57 96 06/12/16 00:06 3.0 06/11/16 23:41 Nasal Cannula Intake and Output 06/11/16 06/11/16 06/12/16 15:00 23:00 07:00 Intake Total 1400 ml Output Total 3200 ml Balance -1800 ml Exam Gen Miladys: less distress, alert presently HEENT: NC/AT, PERRLA, EOMI, no pharyngeal erythema, no tonsillar exudates, no lymphadenopathy, no JVD, no carotid bruits NECK: supple, no thyromegaly THORAX: symmetrical, no obvious deformities CV: S1S2, RRR, no M/G/R Lungs: bibasilar crackles, no rhonchi or wheezing noted Abd: soft, NT/ND, +BS, no rebound, no guarding, neg HSM EXT: trace edema, no ecchymosis, no clubbing, FROM, right 2nd toe amputation Neuro: CN II-XII grossly intact, no focal deficits Psych: good mentation, alert and oriented, good mood and affect Skin: C/D/I Results Result Diagram: 06/12/1630906/12/16 031 Results 24 hrs Laboratory Tests Test 06/11/16 11:41 06/11/16 11:50 06/11/16 16:07 06/11/16 16:59 Activated Partial Thromboplast Time 84.5 *H Bedside Glucose 148 154 Creatine Kinase 124 Creatine Kinase Index 1.2 Creatinine Kinase MB (Mass) 1.48 Troponin I 0.432 *H Test 06/11/16 19:35 06/11/16 20:54 06/12/16 01:38 06/12/16 03:10 Activated Partial Thromboplast Time 38.8 H 50.1 H Bedside Glucose 130 170 Alanine Aminotransferase (ALT/SGPT) 21 Albumin 4.0 Albumin/Globulin Ratio 1.05 Alkaline Phosphatase 85 Anion Gap 20 H Aspartate Amino Transf (AST/SGOT) 11 L Basophils # 0.0 Basophils % 0.4 Blood Morphology Comment Blood Urea Nitrogen 49 #H Calcium Level 8.8 Carbon Dioxide Level 30 Chloride Level 93 L Creatine Kinase 110 Creatine Kinase Index 1.2 Creatinine 7.40 H Creatinine Kinase MB (Mass) 1.30 Direct Bilirubin 0.00 Eosinophils # 0.2 Eosinophils % 1.7 Globulin 3.80 H Glucose Level 155 # Hematocrit 29.5 L Hemoglobin 9.8 L INR International Normalized Ratio 1.18 Indirect Bilirubin 0.3 Lymphocytes # 1.4 Lymphocytes % 15.8 Magnesium Level 2.3 Mean Corpuscular Hemoglobin 28.6 L Mean Corpuscular Hemoglobin Concent 33.1 Mean Corpuscular Volume 86.2 Mean Platelet Volume 10.2 Monocytes # 1.2 H Monocytes % 13.1 H Neutrophils # 6.3 Neutrophils % 69.0 Nucleated Red Blood Cells # 0.0 Nucleated Red Blood Cells % 0.0 Platelet Count 161 Potassium Level 4.8 Prothrombin Time 15.1 H Prothrombin Time Ratio 1.2 Red Blood Count 3.42 L Red Cell Distribution Width 15.9 H Sodium Level 138 Thyroid Stimulating Hormone (TSH) 0.728 Total Bilirubin 0.3 Total Protein 7.8 Troponin I 0.319 *H White Blood Count 9.1 Test 06/12/16 08:24 06/12/16 10:13 Bedside Glucose 135 Activated Partial Thromboplast Time 53.0 H Medications Medications Current Medications Lorazepam (Ativan) 0.5 mg Q6H PRN IV ANXIETY; Start 06/10/16 at 20:30 Nitroglycerin (Nitroglycerin (Sl Tab) 0.4 Mg) 1 tab Q5M PRN SL CHEST PAIN; Start 06/10/16 at 20:30 Acetaminophen (Tylenol Tab) 650 mg Q6H PRN PO PAIN LEVEL 1-3 OR FEVER; Start at 20:30 Acetaminophen/ Hydrocodone Bitart ([place] (5/325)) 1 tab Q6H PRN PO PAIN LEVEL 4 -6 Last administered on 06/11/16 04:03; Admin Dose 1 TAB; Start 06/10/16 at 20: 30 Morphine Sulfate (morphine) 2 mg Q4H PRN IV PAIN LEVEL 7-10; Start 06/10/16 at 20:30 Docusate Sodium 100 mg 100 mg Q12H PRN PO CONSTIPATION; Start 06/10/16 at 20:30 Levofloxacin/ Dextrose (Levaquin 500mg/ D5W 100 ml (Pmx)) 100 ml @ 100 mls/hr Q48H IVPB Last administered on 06/10/16 23:48; Admin Dose 100 MLS/HR; Start at 20:30 Aspirin (Aspirin) 81 mg DAILY PO Last administered on 06/11/16 09:10; Admin Dose 81 MG; Start 06/11/16 at 09:00 Atorvastatin Calcium (Lipitor) 40 mg DAILY PO Last administered on 06/11/16 09 :11; Admin Dose 40 MG; Start 06/11/16 at 09:00 Calcium Acetate (Phoslo) 667 mg TID PO Last administered on 06/11/16 20:48; Admin Dose 667 MG; Start 06/10/16 at 21:00 Ergocalciferol (Drisdol) 50,000 unit Sa@09 PO ; Start 06/16/16 at 09:00 Folic Acid (Folic Acid) 1 mg DAILY PO Last administered on 06/11/16 09:10; Admin Dose 1 MG; Start 06/11/16 at 09:00 Gabapentin (Neurontin) 300 mg BID PO Last administered on 06/11/16 20:48; Admin Dose 300 MG; Start 06/10/16 at 21:00 Hydralazine HCl (Apresoline) 50 mg TID PO Last administered on 06/11/16 20:48 ; Admin Dose 50 MG; Start 06/10/16 at 21:00 Insulin Glargine (Lantus) 15 unit QHS SC Last administered on 06/11/16 20:58; Admin Dose 15 UNIT; Start 06/10/16 at 21:00 Montelukast Sodium (Singulair) 10 mg HS PO Last administered on 06/11/16 20:48 ; Admin Dose 10 MG; Start 06/10/16 at 21:00 Nifedipine (Procardia Xl) 60 mg BID PO Last administered on 06/11/16 20:48; Admin Dose 60 MG; Start 06/10/16 at 21:00 Tamsulosin HCl (Flomax) 0.4 mg DAILY PO Last administered on 06/11/16 09:11; Admin Dose 0.4 MG; Start 06/11/16 at 09:00 Famotidine (Pepcid) 20 mg DAILY PO Last administered on 06/11/16 09:11; Admin Dose 20 MG; Start 06/11/16 at 09:00 Diagnostic Test (Pha) (Accucheck) 1 ea 02 XX Last administered on 06/12/16 02: 16; Admin Dose 1 EA; Start 06/11/16 at 02:00 Miscellaneous Information 1 ea NOTE XX ; Start 06/10/16 at 21:00 Glucose (Glutose) 15 gm Q15M PRN PO DECREASED GLUCOSE; Start 06/10/16 at 21:00 Glucose (Glutose) 22.5 gm Q15M PRN PO DECREASED GLUCOSE; Start 06/10/16 at 21: 00 Dextrose (D50w Syringe) 25 ml Q15M PRN IV DECREASED GLUCOSE; Start 06/10/16 at 21:00 Dextrose (D50w Syringe) 50 ml Q15M PRN IV DECREASED GLUCOSE; Start 06/10/16 at 21:00 Glucagon (Glucagen) 1 mg Q15M PRN IM DECREASED GLUCOSE; Start 06/10/16 at 21:00 Glucose (Glutose) 15 gm Q15M PRN BUCCAL DECREASED GLUCOSE; Start 06/10/16 at 21 :00 Ondansetron HCl (Zofran Inj) 4 mg Q6H PRN IV NAUSEA AND/OR VOMITING; Start at 21:30 Influenza Virus Vaccine (Fluzone) 0.5 ml ONCE ONCE IM* ; Start 06/12/16 at 12:00 ; Stop 06/12/16 at 12:01 Diagnostic Test (Pha) (Accucheck) 1 ea 02 XX Last administered on 06/12/16 02: 15; Admin Dose 1 EA; Start 06/12/16 at 02:00 Hydralazine HCl (Apresoline) 10 mg Q6H PRN IV ELEVATED BLOOD PRESSURE; Start at 10:00 Metoprolol Tartrate (Lopressor) 25 mg BID PO Last administered on 06/11/16 20: 47; Admin Dose 25 MG; Start 06/11/16 at 21:[address] Jun 12, 2016 10:51
[2016-06-12] MEDS: FAMOTIDINE 20 MG TAB PO SCH (11:43)
[2016-06-12] MEDS ORDERED: INFLUENZA VIRUS VACCINE 0.5 ML SYG IM* ONE (12:00)
[2016-06-12] MEDS ORDERED: REGADENOSON 0.4 MG/5 ML SYG ONE (13:14)
--- NOTE | 2016-06-12 14:24 | RADRPT ---
Vent Rate: 71 bpm RR Interval: 0 msec [place] Interval: 180 msec QRS Duration: 84 msec QT Interval: 430 msec QTC Interval: 467 msec P-R-T [place]: 40 - 44 - 70 degrees Normal sinus rhythm Normal ECG Electronically Signed By: Raudel Montgomery [id number]
--- NOTE | 2016-06-12 14:51 | PN ---
DATE: 06/12/2016 CARDIOLOGY FOLLOWUP PROGRESS NOTE SUBJECTIVE: Discussed with the staff. Discussed with Dr. Street. The patient with no chest pain or pressure, with no palpitation. His shortness of breath has significantly improved. MEDICATIONS: Reviewed as per medical sheet, personally reviewed. PHYSICAL EXAMINATION: VITAL SIGNS: Temperature 98.3, heart rate 60, blood pressure 120/56, respiration rate of 20, satura ting 95%. HEENT: Normocephalic, atraumatic. Pupils are equal. CARDIOVASCULAR: Regular rate and rhythm. PULMONARY: With no wheezes, minimal rhonchi at the base. GASTROINTESTINAL: Soft, nontender. EXTREMITIES: Trivial edema. NEUROLOGIC: Awake, responds appropriately. LABORATORY: WBC of 9.1, hemoglobin 9.8, platelets of 161. Sodium 138, potassium 4.8, BUN of 49, cr eatinine 7.4, glucose 155. Troponin has peaked at 0.5 and come down to 0.319. Echocardiogram was p ersonally reviewed which showed normal LV size and systolic function. Mitral valve appeared to be t hickened, vegetation cannot be ruled out. ASSESSMENT AND PLAN: 1. Abnormal troponin, rule out significant coronary artery disease and acute coronary syndrome. 2. Fluid overload/congestive heart failure. 3. Renal failure, on dialysis. 4. Peripheral vascular disease. 5. Questionable pneumonia. 6. Hypertension. 7. Diabetes. 8. Dyslipidemia. 9. History of possible myocardial infarction in the past. 10. Abnormal echo finding, cannot rule out vegetation. RECOMMENDATIONS: We will continue with the current cardiac care for now. Lexiscan will be obtained today to rule out significant obstructive coronary artery disease. I have ordered blood culture ye sterday to be done. We will follow up on the results and decide on antibiotic treatment. Dictated By: ROBINSON BERNAL/IMANI Conf#: [id number] DID#: [id number] CC: BRYAN STREET;*EndCC*
--- NOTE | 2016-06-12 15:30 | RADRPT ---
PROCEDURE: Lexiscan myocardial perfusion study CLINICAL INDICATION: 66 -year-old patient complaining of chest pain. TECHNIQUE: Lexiscan 0.4 mg intravenously separate acquisition gated myocardial perfusion SPECT usi ng Tc 99m Myoview 30.4 mCi intravenously at stress and Tc-99m Myoview, 9.4 mCi intravenously at rest was performed using the rest/stress sequence. Poststress Myoview SPECT images were obtained in the supine position. COMPARISON: No prior studies. FINDINGS: Perfusion images reveal no evidence of perfusion defects. Lexiscan post stress gated SPECT images demonstrate no wall motion abnormalities. IMPRESSION: 1. No evidence of perfusion defects. 2. No wall motion abnormalities. 3. The left ventricle ejection fraction at stress is 56%. A call report was made to Dr. Monroe at 03:28 p.m. on June 12, 2016, RPTAT: HH .Miroslava Abdi MD, Date Time Electronically viewed and signed by .Miroslava Abdi MD, on 06/12/2016 15:30 .L/
--- NOTE | 2016-06-12 15:30 | TMLRPT ---
DATE: 06/12/2016 LEXISCAN STRESS TEST INDICATION: Abnormal troponin. DESCRIPTION: Lexiscan was performed as per protocol. FINDINGS: 1. Baseline electrocardiogram showed normal sinus rhythm, normal ECG. Heart rate at baseline is 6 8, blood pressure 113/59. 2. No significant ischemic ST changes are seen. 3. No frequent arrhythmia was seen. CONCLUSION: Completion of Lexiscan stress test per protocol. See Nuclear Medicine results for amisha l report. Dictated By: ROBINSON DE LA CRUZ MD AV/NTS Conf#: [id number] DID#: [id number] CC: XIOMARA CRONIN MD;*EndCC*
--- NOTE | 2016-06-12 16:04 | CONS ---
Date/Time of Note Date/Time of Note DATE: 06/12/16 TIME: 16:03 Assessment/Plan Assessment/Plan Chief Complaint/Hosp Course IMPRESSION: 1. Pulmonary edema.better 2. Hyperkalemia. better 3. End-stage renal disease. 4. Leukocytosis. 5. Anemia. 6. Rule out underlying pneumonia. 7. Atherosclerotic heart disease. 8. Dyslipidemia. 9. Rule out myocardial infarction. plan hd Problems: Consultation Date/Type/Reason Admit Date/Time Jun 11, 2016 at 07:41 Type of Consultation: RENAL 24 HR Interval Summary Subjective hx not possible: other (feeling better) Exam/Review of Systems Vital Signs Vitals Vital Signs Date Time Temp Pulse Resp B/P Pulse Ox O2 Delivery O2 Flow Rate FiO2 06/12/16 15:28 97.9 78 20 120/60 98 06/12/16 00:06 3.0 06/11/16 23:41 Nasal Cannula Intake and Output 06/11/16 06/11/16 06/12/16 15:00 23:00 07:00 Intake Total 1400 ml Output Total 3200 ml Balance -1800 ml Exam Neck: supple Respiratory: clear to auscultation Cardiovascular: regular rate and rhythm Gastrointestinal: soft Musculoskeletal: nl extremities to inspection Extremities: normal pulses Results Result Diagram: 06/12/16 03106/12/16 0310 Results 24 hrs Laboratory Tests Test 06/11/16 16:07 06/11/16 16:59 06/11/16 19:35 06/11/16 20:54 Creatine Kinase 124 Creatine Kinase Index 1.2 Creatinine Kinase MB (Mass) 1.48 Troponin I 0.432 *H Bedside Glucose 154 130 Activated Partial Thromboplast Time 38.8 H Test 06/12/16 01:38 06/12/16 03:10 06/12/16 08:24 06/12/16 09:20 Bedside Glucose 170 135 Activated Partial Thromboplast Time 50.1 H Alanine Aminotransferase (ALT/SGPT) 21 Albumin 4.0 Albumin/Globulin Ratio 1.05 Alkaline Phosphatase 85 Anion Gap 20 H Aspartate Amino Transf (AST/SGOT) 11 L Basophils # 0.0 Basophils % 0.4 Blood Morphology Comment Blood Urea Nitrogen 49 #H Calcium Level 8.8 Carbon Dioxide Level 30 Chloride Level 93 L Creatine Kinase 110 Creatine Kinase Index 1.2 Creatinine 7.40 H Creatinine Kinase MB (Mass) 1.30 Direct Bilirubin 0.00 Eosinophils # 0.2 Eosinophils % 1.7 Globulin 3.80 H Glucose Level 155 # Hematocrit 29.5 L Hemoglobin 9.8 L INR International Normalized Ratio 1.18 Indirect Bilirubin 0.3 Lymphocytes # 1.4 Lymphocytes % 15.8 Magnesium Level 2.3 Mean Corpuscular Hemoglobin 28.6 L Mean Corpuscular Hemoglobin Concent 33.1 Mean Corpuscular Volume 86.2 Mean Platelet Volume 10.2 Monocytes # 1.2 H Monocytes % 13.1 H Neutrophils # 6.3 Neutrophils % 69.0 Nucleated Red Blood Cells # 0.0 Nucleated Red Blood Cells % 0.0 Platelet Count 161 Potassium Level 4.8 Prothrombin Time 15.1 H Prothrombin Time Ratio 1.2 Red Blood Count 3.42 L Red Cell Distribution Width 15.9 H Sodium Level 138 Thyroid Stimulating Hormone (TSH) 0.728 Total Bilirubin 0.3 Total Protein 7.8 Troponin I 0.319 *H White Blood Count 9.1 Free Thyroxine 1.70 Test 06/12/16 10:13 06/12/16 12:05 Activated Partial Thromboplast Time 53.0 H Bedside Glucose 220 Medications Medications Current Medications Lorazepam (Ativan) 0.5 mg Q6H PRN IV ANXIETY; Start 06/10/16 at 20:30 Nitroglycerin (Nitroglycerin (Sl Tab) 0.4 Mg) 1 tab Q5M PRN SL CHEST PAIN; Start 06/10/16 at 20:30 Acetaminophen (Tylenol Tab) 650 mg Q6H PRN PO PAIN LEVEL 1-3 OR FEVER; Start at 20:30 Acetaminophen/ Hydrocodone Bitart ([place] (5/325)) 1 tab Q6H PRN PO PAIN LEVEL 4 -6 Last administered on 06/11/16 04:03; Admin Dose 1 TAB; Start 06/10/16 at 20: 30 Morphine Sulfate (morphine) 2 mg Q4H PRN IV PAIN LEVEL 7-10; Start 06/10/16 at 20:30 Docusate Sodium 100 mg 100 mg Q12H PRN PO CONSTIPATION; Start 06/10/16 at 20:30 Levofloxacin/ Dextrose (Levaquin 500mg/ D5W 100 ml (Pmx)) 100 ml @ 100 mls/hr Q48H IVPB Last administered on 06/10/16 23:48; Admin Dose 100 MLS/HR; Start at 20:30 Aspirin (Aspirin) 81 mg DAILY PO Last administered on 06/11/16 09:10; Admin Dose 81 MG; Start 06/11/16 at 09:00 Atorvastatin Calcium (Lipitor) 40 mg DAILY PO Last administered on 06/11/16 09 :11; Admin Dose 40 MG; Start 06/11/16 at 09:00 Calcium Acetate (Phoslo) 667 mg TID PO Last administered on 06/11/16 20:48; Admin Dose 667 MG; Start 06/10/16 at 21:00 Ergocalciferol (Drisdol) 50,000 unit Sa@09 PO ; Start 06/16/16 at 09:00 Folic Acid (Folic Acid) 1 mg DAILY PO Last administered on 06/11/16 09:10; Admin Dose 1 MG; Start 06/11/16 at 09:00 Gabapentin (Neurontin) 300 mg BID PO Last administered on 06/11/16 20:48; Admin Dose 300 MG; Start 06/10/16 at 21:00 Hydralazine HCl (Apresoline) 50 mg TID PO Last administered on 06/11/16 20:48 ; Admin Dose 50 MG; Start 06/10/16 at 21:00 Insulin Glargine (Lantus) 15 unit QHS SC Last administered on 06/11/16 20:58; Admin Dose 15 UNIT; Start 06/10/16 at 21:00 Montelukast Sodium (Singulair) 10 mg HS PO Last administered on 06/11/16 20:48 ; Admin Dose 10 MG; Start 06/10/16 at 21:00 Nifedipine (Procardia Xl) 60 mg BID PO Last administered on 06/11/16 20:48; Admin Dose 60 MG; Start 06/10/16 at 21:00 Tamsulosin HCl (Flomax) 0.4 mg DAILY PO Last administered on 06/11/16 09:11; Admin Dose 0.4 MG; Start 06/11/16 at 09:00 Famotidine (Pepcid) 20 mg DAILY PO Last administered on 06/11/16 09:11; Admin Dose 20 MG; Start 06/11/16 at 09:00 Diagnostic Test (Pha) (Accucheck) 1 ea 02 XX Last administered on 06/12/16 02: 16; Admin Dose 1 EA; Start 06/11/16 at 02:00 Miscellaneous Information 1 ea NOTE XX ; Start 06/10/16 at 21:00 Glucose (Glutose) 15 gm Q15M PRN PO DECREASED GLUCOSE; Start 06/10/16 at 21:00 Glucose (Glutose) 22.5 gm Q15M PRN PO DECREASED GLUCOSE; Start 06/10/16 at 21: 00 Dextrose (D50w Syringe) 25 ml Q15M PRN IV DECREASED GLUCOSE; Start 06/10/16 at 21:00 Dextrose (D50w Syringe) 50 ml Q15M PRN IV DECREASED GLUCOSE; Start 06/10/16 at 21:00 Glucagon (Glucagen) 1 mg Q15M PRN IM DECREASED GLUCOSE; Start 06/10/16 at 21:00 Glucose (Glutose) 15 gm Q15M PRN BUCCAL DECREASED GLUCOSE; Start 06/10/16 at 21 :00 Ondansetron HCl (Zofran Inj) 4 mg Q6H PRN IV NAUSEA AND/OR VOMITING; Start at 21:30 Diagnostic Test (Pha) (Accucheck) 1 ea 02 XX Last administered on 06/12/16 02: 15; Admin Dose 1 EA; Start 06/12/16 at 02:00 Hydralazine HCl (Apresoline) 10 mg Q6H PRN IV ELEVATED BLOOD PRESSURE; Start at 10:00 Metoprolol Tartrate (Lopressor) 25 mg BID PO Last administered on 06/11/16 20: 47; Admin Dose 25 MG; Start 06/11/16 at 21:00 EDILBERTO RODRIGUEZ MD Jun 12, 2016 16:04
--- NOTE | 2016-06-12 17:40 | CONS ---
Date/Time of Note Date/Time of Note DATE: 06/12/16 TIME: 17:36 Assessment/Plan Assessment/Plan Problems: (1) Hammertoe (2) Diabetes, polyneuropathy Additional Assessment/Plan I have advised and counseled patient in great detail regarding the to side effects of diabetes mellitus on the lower extremities. We specifically discussed peripheral neuropathy, peripheral vascular disease, ulcerations and infections in the lower extremity. I also discussed proper foot wear and foot care for diabetic patient. Consultation Date/Type/Reason Admit Date/Time Jun 11, 2016 at 07:41 Date of Consultation: Jun 12, 2016 Type of Consultation: Foot and ankle surgery Hx of Present Illness Thank you very much for involving in the care of this patient. As you very well know this is a 66-year-old male patient with end-stage renal disease on hemodialysis, dyslipidemia, type 2 diabetes mellitus, peripheral vascular disease, essential hypertension who has been admitted for generalized weakness and shaking. Patient has been coming to the wound clinic and is familiar to my practice. Patient has requested for me to see him in the hospital. As per history of present illness. Constitutional: other (SOB) Past Medical History As per history of present illness. Medical History: coronary artery disease, diabetes, high cholesterol, hypertension, renal disease Past Surgical History As per history of present illness. Past Surgical Hx: other Social History As per history of present illness. Alcohol Use: none Smoking Status: Former smoker Drug Use: none Exam/Review of Systems Vital Signs Vitals Vital Signs Date Time Temp Pulse Resp B/P Pulse Ox O2 Delivery O2 Flow Rate FiO2 06/12/16 16:51 75 06/12/16 15:28 97.9 20 120/60 98 06/12/16 00:06 3.0 06/11/16 23:41 Nasal Cannula Intake and Output 06/11/16 06/11/16 06/12/16 15:00 23:00 07:00 Intake Total 1400 ml Output Total 3200 ml Balance -1800 ml Exam Patient is in no acute distress laying supine in bed. There is no sign of infection. Bilateral lower extremity edema noted. Pedal pulses remain weakly palpable and capillary filling time is delayed. Protective sensation is decreased to sharp dull vibratory and temperature stimuli. No open wound noted bilateral lower extremities. Contracted toes noted on both feet. Results Result Diagram: 06/12/16 0310 06/12/16 0310 Results 24 hrs Laboratory Tests Test 06/11/16 19:35 06/11/16 20:54 06/12/16 01:38 06/12/16 03:10 Activated Partial Thromboplast Time 38.8 H 50.1 H Bedside Glucose 130 170 Alanine Aminotransferase (ALT/SGPT) 21 Albumin 4.0 Albumin/Globulin Ratio 1.05 Alkaline Phosphatase 85 Anion Gap 20 H Aspartate Amino Transf (AST/SGOT) 11 L Basophils # 0.0 Basophils % 0.4 Blood Morphology Comment Blood Urea Nitrogen 49 #H Calcium Level 8.8 Carbon Dioxide Level 30 Chloride Level 93 L Creatine Kinase 110 Creatine Kinase Index 1.2 Creatinine 7.40 H Creatinine Kinase MB (Mass) 1.30 Direct Bilirubin 0.00 Eosinophils # 0.2 Eosinophils % 1.7 Globulin 3.80 H Glucose Level 155 # Hematocrit 29.5 L Hemoglobin 9.8 L INR International Normalized Ratio 1.18 Indirect Bilirubin 0.3 Lymphocytes # 1.4 Lymphocytes % 15.8 Magnesium Level 2.3 Mean Corpuscular Hemoglobin 28.6 L Mean Corpuscular Hemoglobin Concent 33.1 Mean Corpuscular Volume 86.2 Mean Platelet Volume 10.2 Monocytes # 1.2 H Monocytes % 13.1 H Neutrophils # 6.3 Neutrophils % 69.0 Nucleated Red Blood Cells # 0.0 Nucleated Red Blood Cells % 0.0 Platelet Count 161 Potassium Level 4.8 Prothrombin Time 15.1 H Prothrombin Time Ratio 1.2 Red Blood Count 3.42 L Red Cell Distribution Width 15.9 H Sodium Level 138 Thyroid Stimulating Hormone (TSH) 0.728 Total Bilirubin 0.3 Total Protein 7.8 Troponin I 0.319 *H White Blood Count 9.1 Test 06/12/16 08:24 06/12/16 09:20 06/12/16 10:13 06/12/16 12:05 Bedside Glucose 135 220 Free Thyroxine 1.70 Activated Partial Thromboplast Time 53.0 H Medications Medications Current Medications Lorazepam (Ativan) 0.5 mg Q6H PRN IV ANXIETY; Start 06/10/16 at 20:30 Nitroglycerin (Nitroglycerin (Sl Tab) 0.4 Mg) 1 tab Q5M PRN SL CHEST PAIN; Start 06/10/16 at 20:30 Acetaminophen (Tylenol Tab) 650 mg Q6H PRN PO PAIN LEVEL 1-3 OR FEVER; Start at 20:30 Acetaminophen/ Hydrocodone Bitart ([place] (5/325)) 1 tab Q6H PRN PO PAIN LEVEL 4 -6 Last administered on 06/11/16 04:03; Admin Dose 1 TAB; Start 06/10/16 at 20: 30 Morphine Sulfate (morphine) 2 mg Q4H PRN IV PAIN LEVEL 7-10; Start 06/10/16 at 20:30 Docusate Sodium 100 mg 100 mg Q12H PRN PO CONSTIPATION; Start 06/10/16 at 20:30 Levofloxacin/ Dextrose (Levaquin 500mg/ D5W 100 ml (Pmx)) 100 ml @ 100 mls/hr Q48H IVPB Last administered on 06/10/16 23:48; Admin Dose 100 MLS/HR; Start at 20:30 Aspirin (Aspirin) 81 mg DAILY PO Last administered on 06/11/16 09:10; Admin Dose 81 MG; Start 06/11/16 at 09:00 Atorvastatin Calcium (Lipitor) 40 mg DAILY PO Last administered on 06/11/16 09 :11; Admin Dose 40 MG; Start 06/11/16 at 09:00 Calcium Acetate (Phoslo) 667 mg TID PO Last administered on 06/11/16 20:48; Admin Dose 667 MG; Start 06/10/16 at 21:00 Ergocalciferol (Drisdol) 50,000 unit Sa@09 PO ; Start 06/16/16 at 09:00 Folic Acid (Folic Acid) 1 mg DAILY PO Last administered on 06/11/16 09:10; Admin Dose 1 MG; Start 06/11/16 at 09:00 Gabapentin (Neurontin) 300 mg BID PO Last administered on 06/11/16 20:48; Admin Dose 300 MG; Start 06/10/16 at 21:00 Hydralazine HCl (Apresoline) 50 mg TID PO Last administered on 06/11/16 20:48 ; Admin Dose 50 MG; Start 06/10/16 at 21:00 Insulin Glargine (Lantus) 15 unit QHS SC Last administered on 06/11/16 20:58; Admin Dose 15 UNIT; Start 06/10/16 at 21:00 Montelukast Sodium (Singulair) 10 mg HS PO Last administered on 06/11/16 20:48 ; Admin Dose 10 MG; Start 06/10/16 at 21:00 Nifedipine (Procardia Xl) 60 mg BID PO Last administered on 06/11/16 20:48; Admin Dose 60 MG; Start 06/10/16 at 21:00 Tamsulosin HCl (Flomax) 0.4 mg DAILY PO Last administered on 06/11/16 09:11; Admin Dose 0.4 MG; Start 06/11/16 at 09:00 Famotidine (Pepcid) 20 mg DAILY PO Last administered on 06/11/16 09:11; Admin Dose 20 MG; Start 06/11/16 at 09:00 Diagnostic Test (Pha) (Accucheck) 1 ea XX Last administered on 06/12/16 02: 16; Admin Dose 1 EA; Start 06/11/16 at 02:00 Miscellaneous Information 1 ea NOTE XX ; Start 06/10/16 at 21:00 Glucose (Glutose) 15 gm Q15M PRN PO DECREASED GLUCOSE; Start 06/10/16 at 21:00 Glucose (Glutose) 22.5 gm Q15M PRN PO DECREASED GLUCOSE; Start 06/10/16 at 21: 00 Dextrose (D50w Syringe) 25 ml Q15M PRN IV DECREASED GLUCOSE; Start 06/10/16 at 21:00 Dextrose (D50w Syringe) 50 ml Q15M PRN IV DECREASED GLUCOSE; Start 06/10/16 at 21:00 Glucagon (Glucagen) 1 mg Q15M PRN IM DECREASED GLUCOSE; Start 06/10/16 at 21:00 Glucose (Glutose) 15 gm Q15M PRN BUCCAL DECREASED GLUCOSE; Start 06/10/16 at 21 :00 Ondansetron HCl (Zofran Inj) 4 mg Q6H PRN IV NAUSEA AND/OR VOMITING; Start at 21:30 Diagnostic Test (Pha) (Accucheck) 1 ea XX Last administered on 06/12/16 02: 15; Admin Dose 1 EA; Start 06/12/16 at 02:00 Hydralazine HCl (Apresoline) 10 mg Q6H PRN IV ELEVATED BLOOD PRESSURE; Start at 10:00 Metoprolol Tartrate (Lopressor) 25 mg BID PO Last administered on 06/11/16t 20: 47; Admin Dose 25 MG; Start 06/11/16 at 21:00 BRAIN MARTÍNEZ DPM Jun 12, 2016 17:40
[2016-06-12] MEDS: INSULIN GLARGINE [LANtus] 3 ML PEN SC SCH (20:32)
[2016-06-12] MEDS: MONTELUKAST 10 MG TAB PO SCH (21:13)
[2016-06-12] MEDS: LEVOFLOXACIN 500MG/D5W (PMX) 100 ML IVPB SCH (21:13)
[2016-06-13] VITALS (22 sets, daily range): BP systolic 119–145; BP diastolic 56–67; PULSE 65–69; RESP 18–20
[2016-06-13] MEDS: ACCUCHECK AT 2AM (Patients on SS coverage) XX SCH (02:00)
[2016-06-13] MEDS: ACCUCHECK XX SCH (02:04)
[2016-06-13 07:17] LABS: BASOPHILS % 0.3 % (0.0-2.0); EOSINOPHILS # 0.2 10^3/ul (0.0-0.5); EOSINOPHILS % 1.7 % (0.0-7.0); HEMATOCRIT 29.5 % (42.0-52.0); HEMOGLOBIN 9.8 g/dl (14.0-18.0); LYMPHOCYTES # 1.5 10^3/ul (0.8-2.9); MEAN CORPUSCULAR HGB CONC 33.2 g/dl (32.0-37.0); MEAN CORPUSCULAR VOLUME 87.5 fl (82.0-101.0); MEAN PLATELET VOLUME 10.6 fl (7.4-10.4); MONOCYTE # 1.2 10^3/ul (0.3-0.9); MONOCYTES % 12.8 % (0.0-11.0); NEUTROPHIL # 6.5 10^3/ul (1.6-7.5); NEUTROPHILS % 69.2 % (39.0-77.0); PLATELET COUNT 169 10^3/UL (140-440); RED BLOOD COUNT 3.37 10^6/ul (4.70-6.10); RED CELL DISTRIBUTION WIDTH 16.2 % (11.5-14.5); UNCORRECTED WBC 9.3 10^3/ul (4.8-10.8); WHITE BLOOD COUNT 9.3 10^3/ul (4.8-10.8)
[2016-06-13 07:26] LABS: CONDITION 1; LH ANALYZER COMMENTS 1
[2016-06-13 07:31] LABS: CREATININE 9.85 mg/dl (0.61-1.24)
[2016-06-13 07:32] LABS: CALCIUM 8.6 mg/dl (8.4-10.2)
[2016-06-13] MEDS: INSULIN ASPART [NOVOLOG] 3 ML PEN SC SCH ×7 (07:55→21:00)
[2016-06-13] MEDS: FOLIC ACID 1 MG TAB PO SCH (08:52)
[2016-06-13] MEDS: ASPIRIN 81 MG TAB PO SCH (08:52)
[2016-06-13] MEDS: TAMSULOSIN (SR) 0.4 MG CAP PO SCH (08:52)
[2016-06-13] MEDS: ATORVASTATIN 40 MG TAB PO SCH (08:53)
[2016-06-13] MEDS: METOPROLOL 25 MG TAB PO SCH ×2 (08:53→20:52)
[2016-06-13] MEDS: GABAPENTIN 300 MG CAP PO SCH ×2 (08:53→20:52)
[2016-06-13] MEDS: FAMOTIDINE 20 MG TAB PO SCH (08:53)
[2016-06-13] MEDS: CALCIUM ACETATE 667 MG CAP PO SCH ×3 (08:57→20:52)
[2016-06-13] MEDS: NIFEdipine (XL) 60 MG TAB PO SCH ×2 (08:58→20:51)
[2016-06-13] MEDS ORDERED: ALBUMIN HUMAN 25% 100 ML IV PRN (09:30)
--- NOTE | 2016-06-13 10:32 | PDOCDIS ---
Discharge Instructions CONDITION Patient Condition: Stable HOME CARE INSTRUCTIONS: Special Diet: Renal ACTIVITY: Activity Restrictions: Slowly Increase Activity FOLLOW UP/APPOINTMENTS Appointments Please take your medications as prescribed, see your doctors in the clinic in [address] Jun 13, 2016 10:32
[2016-06-13] MEDS ORDERED: LEVO750T25 PO (10:38)
--- NOTE | 2016-06-13 10:52 | PN ---
DATE: 06/13/2016 CARDIOLOGY FOLLOWUP SUBJECTIVE: The patient with no chest pain or pressure. No palpitation. Breathing has improved. Rhythm strip was reviewed. He remains in sinus rhythm. MEDICATIONS: Reviewed as per medication reconciliation, personally reviewed. PHYSICAL EXAMINATION: VITAL SIGNS: Temperature 98.2, heart rate of 68, blood pressure 120/62, respiration rate of 19, sat urating 97%. HEENT: Normocephalic, atraumatic. No acute distress. Pupils are equal and round. CARDIOVASCULAR: Regular rate and rhythm, systolic murmur. PULMONARY: With no wheezes anteriorly. GASTROINTESTINAL: Soft, nontender. EXTREMITIES: With trivial lower extremity edema. NEUROLOGIC: Awake, responds appropriately. PSYCHIATRIC: Appears to be calm and pleasant. LABORATORY: WBC of 9.3, hemoglobin 9.8, platelets of 169. Sodium 139, potassium is 5. Lexiscan st ress test done yesterday showed ejection fraction of 56% with no evidence of perfusion defect. ASSESSMENT AND PLAN: 1. Abnormal troponin with no evidence of ischemia on the stress test. Will continue conservative m edical therapy. 2. Fluid overload secondary to congestive heart failure secondary to renal failure and fluid overlo ad, currently is stable after dialysis. 3. Renal failure on dialysis. 4. Severe peripheral vascular disease and possible pneumonia. 5. Hypertension. 6. Diabetes. 7. Dyslipidemia. 8. Questionable history of myocardial infarction in the past. 9. Abnormal echo finding endocarditis cannot be completely ruled out. Blood cultures so far have been negative. was negative. Continue medical therapy. Awaiting blood culture results. Wound care as per podiatry recommendations. Dictated By: ROBINSON BERNAL/IMANI Conf#: [id number] DID#: [id number] CC: BRYAN STREET;*EndCC*
--- NOTE | 2016-06-13 11:05 | DS ---
DATE OF ADMISSION: 06/11/2016 DATE OF DISCHARGE: 06/13/2016 HOSPITAL COURSE: A 66-year-old male originally admitted on 06/10/2014 and being discharged home on 06/13/2016 pending clearance from sap basis consultant teams. The patient was admitted on 06/10/2016 after experiencing generalized weakness and shaking. He was found with fluid overload and possible pneumonia on upper respiratory imaging and leukocytosis. He was admitted to telemetry floor, seen by renal team and cardiology team. He also had elevated troponins and signs of possible non-ST elevation myocardial infarction versus troponinemia from his end -stage renal disease. In any event, the patient was initially started on heparin drip. He did receive dialysis per renal team recommendations. He received about 3 episodes. The patient's creatinine symptoms were stabilized, although they are still elevated from his end-stage renal disease, but more importantly, his fluid overload symptoms appeared to be resolved. He had less shortness of breath symptoms, less altered mental status. Over the course of his hospital stay, the patient also underwent a cardiac stress test that showed no significant EKG changes, specifically, no ischemic ST changes were seen, no arrhythmias were seen, and on the imaging portion of the study there were no perfusion defects or wall motion abnormalities. The last ejection fraction at stress was 56%. Again, the patient was able to ambulate and tolerate a p.o. diet. He was also seen by vascular surgery team and podiatry team and this is because of the patient's peripheral vascular disease and ischemic toe, but there were no signs of infection and pedal pulses remained weakly palpable and capillary refilling time was delayed, but again this is the patient's baseline status. He follows up with those doctors in the clinic for that. If the patient is cleared today after dialysis, he will be discharged home later today in improved condition. DISCHARGE MEDICATIONS: If he does go today, he will be sent with: 1. Aspirin 81 mg daily. 2. Atorvastatin 20 mg at bedtime. 3. Calcium acetate 667 mg t.i.d. 4. Vitamin D2 50,000 units weekly. 5. Folic acid 1 mg daily. 6. Gabapentin 300 mg b.i.d. 7. Hydralazine 50 mg p.o. t.i.d. 8. [place] 1 tab p.o. q.6. p.r.n. 9. Aspart insulin 4 units with meals. 10. Lantus 15 units subcu at bedtime. 11. Singulair 10 mg at bedtime. 12. Nifedipine XL 60 mg b.i.d. 13. Omeprazole 20 mg daily. 14. Flomax 0.4 mg daily. 15. Levaquin 750 mg p.o. daily for 5 more days. FOLLOWUP: Continue to follow up with, again, podiatry team and vascular surgery team and primary care doctor team in the clinic in the next 1 to 2 weeks. FINAL DIAGNOSES: 1. Fluid overload and shortness of breath, altered mental status. Again, all secondary to fluid overload from missing dialysis, now improved. 2. Positive pulmonary edema, possibly secondary to combination of fluid overload and mild pneumonia, now improved. 3. End-stage renal disease on dialysis. 4. Anemia of chronic kidney disease. 5. Essential hypertension. 6. Elevated troponins, ruled out for non-ST elevation myocardial infarction with negative cardiac stress test results with no chest pain. 7. High cholesterol. 8. Peripheral vascular disease. Sees podiatry and vascular surgery team as an outpatient. 9. 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 Again, sees vascular surgery team, podiatry team as an outpatient. Of note, we are also going to send him home with Levaquin 750 mg p.o. daily for 5 more days. Dictated By: BRYAN FARIA Conf#: [id number] DID#: [id number] MTDD
--- NOTE | 2016-06-13 13:47 | CONS ---
DATE OF ADMISSION: 06/11/2016 DATE OF CONSULTATION: 06/12/2016 VASCULAR SURGERY CONSULTATION Dear Doctors: Mr. Arizmendi is a 66-year-old gentleman known to our vascular surgery service secondary to hi s end-stage renal disease and his right lower extremity atherosclerosis with second toe diabetic arely t infection in the past whom presented with generalized weakness and shaking. It was identified the patient has atypical pneumonia with fluid overload and was admitted for evaluation and telemetry. The patient was scheduled to have vascular and podiatry followup, in which case we were called for f urther evaluation upon his previous atherosclerotic disease and second toe infection. At the moment , the patient denies shortness of breath, nausea, vomiting, chest pain, fever, or chills. The patie nt denies lower extremity claudication or rest pain-like symptoms. The patient does have a left upp er extremity weakness and has some, what he refers to, as falling asleep of the left upper extremity . This was a known finding in the past that the patient has had a fistula and the possibility of st eal has been considered. However, we have not been able to have the patient undergo a fistulogram a s he has not been able to follow up with us in regards to that. REVIEW OF SYSTEMS: A 12-point review performed and negative except what is mentioned in the HPI. PAST MEDICAL HISTORY: Entails coronary artery disease, diabetes, high cholesterol, hypertension, en d-stage renal disease, anemia of chronic disease, pneumonia, dyslipidemia, bilateral lower extremity atherosclerosis, right second toe diabetic toe infection, GERD. PAST SURGICAL HISTORY: Left upper extremity fistula creation, chest wall catheter placements and se cond toe incision and drainage. FAMILY HISTORY: Positive for coronary artery disease and diabetes. SOCIAL HISTORY: Denies tobacco, alcohol or illicit drug use. PHYSICAL EXAMINATION: GENERAL: Alert and oriented x3. No apparent distress. HEENT: Normocephalic, atraumatic. PERRLA, EOMI. Mucosa moist. NECK: Supple. No carotid bruit. PULMONARY: Clear to auscultation bilaterally. Some crackles at the bases. CARDIOVASCULAR: S1, S2 present. No murmurs. ABDOMEN: Soft, nontender, nondistended. Bowel sounds positive. LOWER EXTREMITIES: 1. Right lower extremity palpable femoral pulse, nonpalpable pedal pulse. Motor, sensory intact. Cap refill 3 seconds. Second toe skin discoloration; however, no erythema, minimal tenderness upon palpation. No ulcers or edema. 2. Left lower extremity palpable femoral pulse, nonpalpable pedal pulse. Motor, sensory intact. C ap refill 3 seconds. No ulcers or edema. ASSESSMENT AND PLAN: End-stage renal disease: It seems that the patient's left upper extremity fistula is functioning we ll so far. The patient does have some suggestion of steal syndrome as the patient's motor and senso ry has had some deficits. At this point it is not an urgent matter. We will plan to investigate th is further with obtaining a fistulogram for him once he follows up with us. Bilateral lower extremity atherosclerosis with right diabetic foot infection. It seems that the pat ient's progress has been well. He had been treated for his second toe infection and looks like he h as recovered. At the moment, the patient has severe pedal disease in which he has limited digital a rteries. There is concern that if he does develop further infection or further osteomyelitis or tis chaitanya loss with that second toe, he may require amputation and may have some issues with his wound gretchen chu. Unfortunately, there is no vascular options for any revascularization as the patient has inli ne flow all the way to the forefoot. I will continue to follow up with his wound care and surveilla nce for now. No further vascular interventions. Optimize vascular status (BP meds, diet, nutrition, exercise, sugar control, and antiplatelets). Discussed findings, plan and management with the patient with a certified life insurance underwriter and he understa nds. Thank you for allowing us to partake in the care of your patient. Please call with any questions. Dictated By: ELZA HER/IMANI Conf#: [id number] DID#: [id number]
--- NOTE | 2016-06-13 19:06 | CONS ---
Date/Time of Note Date/Time of Note DATE: 06/13/16 TIME: 19:05 Assessment/Plan Assessment/Plan Chief Complaint/Hosp Course IMPRESSION: 1. Pulmonary edema.better 2. Hyperkalemia. better 3. End-stage renal disease. 4. Leukocytosis. 5. Anemia. 6. Rule out underlying pneumonia. 7. Atherosclerotic heart disease. 8. Dyslipidemia. plan hd Problems: Consultation Date/Type/Reason Admit Date/Time Jun 11, 2016 at 07:41 Type of Consultation: renal 24 HR Interval Summary Constitutional: no complaints Exam/Review of Systems Vital Signs Vitals Vital Signs Date Time Temp Pulse Resp B/P Pulse Ox O2 Delivery O2 Flow Rate FiO2 06/13/16 18:15 65 06/13/16 16:21 3.0 32 06/13/16 15:10 18 06/13/16 15:08 98.2 141/65 95 06/13/16 10:54 Nasal Cannula Intake and Output 06/12/16 06/12/16 06/13/16 14:59 22:59 06:59 Intake Total 1000 ml 250 ml Balance 1000 ml 250 ml Exam Neck: supple Respiratory: clear to auscultation Cardiovascular: regular rate and rhythm Gastrointestinal: soft Musculoskeletal: nl extremities to inspection Extremities: normal pulses Neurological: STOCK HOUSE WORKER II-XII intact Results Result Diagram: 06/13/16 0604 06/13/16 0604 Results 24 hrs Laboratory Tests Test 06/12/16 20:27 06/13/16 02:04 06/13/16 06:04 06/13/16 08:00 Bedside Glucose 161 148 129 Anion Gap 23 H Basophils # 0.0 Basophils % 0.3 Blood Morphology Comment Blood Urea Nitrogen 76 H Calcium Level 8.6 Carbon Dioxide Level 27 Chloride Level 94 L Creatinine 9.85 #H Eosinophils # 0.2 Eosinophils % 1.7 Glucose Level 130 Hematocrit 29.5 L Hemoglobin 9.8 L Lymphocytes # 1.5 Lymphocytes % 16.0 Mean Corpuscular Hemoglobin 29.0 Mean Corpuscular Hemoglobin Concent 33.2 Mean Corpuscular Volume 87.5 Mean Platelet Volume 10.6 H Monocytes # 1.2 H Monocytes % 12.8 H Neutrophils # 6.5 Neutrophils % 69.2 Nucleated Red Blood Cells # 0.0 Nucleated Red Blood Cells % 0.0 Platelet Count 169 Potassium Level 5.0 Red Blood Count 3.37 L Red Cell Distribution Width 16.2 H Sodium Level 139 White Blood Count 9.3 Test 06/13/16 12:32 06/13/16 17:06 Bedside Glucose 148 185 Medications Medications Current Medications Lorazepam (Ativan) 0.5 mg Q6H PRN IV ANXIETY; Start 06/10/16 at 20:30 Nitroglycerin (Nitroglycerin (Sl Tab) 0.4 Mg) 1 tab Q5M PRN SL CHEST PAIN; Start 06/10/16 at 20:30 Acetaminophen (Tylenol Tab) 650 mg Q6H PRN PO PAIN LEVEL 1-3 OR FEVER; Start at 20:30 Acetaminophen/ Hydrocodone Bitart ([place] (5/325)) 1 tab Q6H PRN PO PAIN LEVEL 4 -6 Last administered on 06/11/16 04:03; Admin Dose 1 TAB; Start 06/10/16 at 20: 30 Morphine Sulfate (morphine) 2 mg Q4H PRN IV PAIN LEVEL 7-10; Start 06/10/16 at 20:30 Docusate Sodium 100 mg 100 mg Q12H PRN PO CONSTIPATION; Start 06/10/16 at 20:30 Levofloxacin/ Dextrose (Levaquin 500mg/ D5W 100 ml (Pmx)) 100 ml @ 100 mls/hr Q48H IVPB Last administered on 06/12/16 21:13; Admin Dose 100 MLS/HR; Start at 20:30 Aspirin (Aspirin) 81 mg DAILY PO Last administered on 06/13/16 08:52; Admin Dose 81 MG; Start 06/11/16 at 09:00 Atorvastatin Calcium (Lipitor) 40 mg DAILY PO Last administered on 06/11/16 09 :11; Admin Dose 40 MG; Start 06/11/16 at 09:00 Calcium Acetate (Phoslo) 667 mg TID PO Last administered on 06/13/16 12:32; Admin Dose 667 MG; Start 06/10/16 at 21:00 Ergocalciferol (Drisdol) 50,000 unit Sa@09 PO ; Start 06/16/16 at 09:00 Folic Acid (Folic Acid) 1 mg DAILY PO Last administered on 06/13/16 08:52; Admin Dose 1 MG; Start 06/11/16 at 09:00 Gabapentin (Neurontin) 300 mg BID PO Last administered on 06/13/16 08:53; Admin Dose 300 MG; Start 06/10/16 at 21:00 Hydralazine HCl (Apresoline) 50 mg TID PO Last administered on 06/12/16 21:15 ; Admin Dose 50 MG; Start 06/10/16 at 21:00 Insulin Glargine (Lantus) 15 unit QHS SC Last administered on 06/12/16 20:32; Admin Dose 15 UNIT; Start 06/10/16 at 21:00 Montelukast Sodium (Singulair) 10 mg HS PO Last administered on 06/12/16 21:13 ; Admin Dose 10 MG; Start 06/10/16 at 21:00 Nifedipine (Procardia Xl) 60 mg BID PO Last administered on 06/12/16 21:13; Admin Dose 60 MG; Start 06/10/16 at 21:00 Tamsulosin HCl (Flomax) 0.4 mg DAILY PO Last administered on 06/13/16 08:52; Admin Dose 0.4 MG; Start 06/11/16 at 09:00 Famotidine (Pepcid) 20 mg DAILY PO Last administered on 06/13/16 08:53; Admin Dose 20 MG; Start 06/11/16 at 09:00 Diagnostic Test (Pha) (Accucheck) 1 ea 02 XX Last administered on 06/12/16 02: 16; Admin Dose 1 EA; Start 06/11/16 at 02:00 Miscellaneous Information 1 ea NOTE XX ; Start 06/10/16 at 21:00 Glucose (Glutose) 15 gm Q15M PRN PO DECREASED GLUCOSE; Start 06/10/16 at 21:00 Glucose (Glutose) 22.5 gm Q15M PRN PO DECREASED GLUCOSE; Start 06/10/16 at 21: 00 Dextrose (D50w Syringe) 25 ml Q15M PRN IV DECREASED GLUCOSE; Start 06/10/16 at 21:00 Dextrose (D50w Syringe) 50 ml Q15M PRN IV DECREASED GLUCOSE; Start 06/10/16 at 21:00 Glucagon (Glucagen) 1 mg Q15M PRN IM DECREASED GLUCOSE; Start 06/10/16 at 21:00 Glucose (Glutose) 15 gm Q15M PRN BUCCAL DECREASED GLUCOSE; Start 06/10/16 at 21 :00 Ondansetron HCl (Zofran Inj) 4 mg Q6H PRN IV NAUSEA AND/OR VOMITING; Start at 21:30 Diagnostic Test (Pha) (Accucheck) 1 ea 02 XX Last administered on 06/13/16 02: 04; Admin Dose 1 EA; Start 06/12/16 at 02:00 Hydralazine HCl (Apresoline) 10 mg Q6H PRN IV ELEVATED BLOOD PRESSURE; Start at 10:00 Metoprolol Tartrate (Lopressor) 25 mg BID PO Last administered on 06/12/16 21: 29; Admin Dose 25 MG; Start 06/11/16 at 21:00 EDILBERTO RODRIGUEZ MD Jun 13, 2016 19:06
[2016-06-13] MEDS: MONTELUKAST 10 MG TAB PO SCH (20:51)
[2016-06-13] MEDS: INSULIN GLARGINE [LANtus] 3 ML PEN SC SCH (21:01)
[2016-06-14] VITALS (7 sets, daily range): BP systolic 101–124; BP diastolic 49–62; PULSE 60–72; RESP 18–20
[2016-06-14] MEDS: ACCUCHECK XX SCH (01:32)
[2016-06-14] MEDS: ACCUCHECK AT 2AM (Patients on SS coverage) XX SCH (01:32)
[2016-06-14 06:58] LABS: BASOPHILS % 0.5 % (0.0-2.0); EOSINOPHILS # 0.2 10^3/ul (0.0-0.5); EOSINOPHILS % 3.2 % (0.0-7.0); HEMATOCRIT 31.4 % (42.0-52.0); HEMOGLOBIN 10.5 g/dl (14.0-18.0); LYMPHOCYTES # 1.5 10^3/ul (0.8-2.9); LYMPHOCYTES % 19.7 % (15.0-51.0); MEAN CORPUSCULAR HGB CONC 33.3 g/dl (32.0-37.0); MEAN PLATELET VOLUME 9.8 fl (7.4-10.4); MONOCYTE # 1.2 10^3/ul (0.3-0.9); MONOCYTES % 14.9 % (0.0-11.0); NEUTROPHIL # 4.8 10^3/ul (1.6-7.5); NEUTROPHILS % 61.7 % (39.0-77.0); PLATELET COUNT 181 10^3/UL (140-440); RED BLOOD COUNT 3.61 10^6/ul (4.70-6.10); RED CELL DISTRIBUTION WIDTH 16.3 % (11.5-14.5); UNCORRECTED WBC 7.8 10^3/ul (4.8-10.8); WHITE BLOOD COUNT 7.8 10^3/ul (4.8-10.8)
[2016-06-14 07:03] LABS: POTASSIUM 4.4 mmol/L (3.5-5.1)
[2016-06-14 07:06] LABS: CREATININE 7.88 mg/dl (0.61-1.24)
[2016-06-14 07:07] LABS: CALCIUM 8.4 mg/dl (8.4-10.2)
[2016-06-14 07:09] LABS: CONDITION 1; LH ANALYZER COMMENTS 1
[2016-06-14] MEDS: ATORVASTATIN 40 MG TAB PO SCH (08:06)
[2016-06-14] MEDS: GABAPENTIN 300 MG CAP PO SCH (08:06)
[2016-06-14] MEDS: ASPIRIN 81 MG TAB PO SCH (08:07)
[2016-06-14] MEDS: FAMOTIDINE 20 MG TAB PO SCH (08:07)
[2016-06-14] MEDS: FOLIC ACID 1 MG TAB PO SCH (08:07)
[2016-06-14] MEDS: CALCIUM ACETATE 667 MG CAP PO SCH ×2 (08:08→12:26)
[2016-06-14] MEDS: TAMSULOSIN (SR) 0.4 MG CAP PO SCH (08:08)
[2016-06-14] MEDS: METOPROLOL 25 MG TAB PO SCH (08:09)
[2016-06-14] MEDS: NIFEdipine (XL) 60 MG TAB PO SCH (08:09)
[2016-06-14] MEDS: INSULIN ASPART [NOVOLOG] 3 ML PEN SC SCH ×4 (08:20→12:28)
--- NOTE | 2016-06-14 11:52 | DS ---
Date/Time of Note Date/Time of Note DATE: 06/14/16 TIME: 11:51 Discharge Summary Admission/Discharge Info Admit Date/Time Jun 11, 2016 at 07:41 Discharge Date/Time Final Diagnosis FINAL DIAGNOSES: 1. Fluid overload and shortness of breath, altered mental status. Again, all secondary to fluid overload from missing dialysis, now improved. 2. Positive pulmonary edema, possibly secondary to combination of fluid overload and mild pneumonia, now improved. 3. End-stage renal disease on dialysis. 4. Anemia of chronic kidney disease. 5. Essential hypertension. 6. Elevated troponins, ruled out for non-ST elevation myocardial infarction with negative cardiac stress test results with no chest pain. 7. High cholesterol. 8. Peripheral vascular disease. Sees podiatry and vascular surgery team as an outpatient. 9. 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 Again, sees vascular surgery team, podiatry team as an outpatient. Patient Condition: Stable Hx of Present Illness 66 yo male with a past medical history of ESRD on HD (M/W/F), dyslipidemia, type II DM, PVD, Essential Hypertension, who came in for generalized weakness and shaking. He missed his last dialysis session because he had a cough and illness. States that he had intermittent fevers/chills, phlegm - greenish in color, with malaise and dizziness. Denies any chest pain, shortness of breath, nausea/vomiting/diarrhea/constipation, or other constitutional symptoms. Patient was recently admitted here on 04/17/2106 for vascular disease. ED course: [facility] Course HOSPITAL COURSE: A 66-year-old male originally admitted on 06/10/2014 and being discharged home on 06/14/2016 pending clearance from emergency management consultant teams. The patient was admitted on 06/10/2016 after experiencing generalized weakness and shaking. He was found with fluid overload and possible pneumonia on upper respiratory imaging and leukocytosis. He was admitted to telemetry floor, seen by renal team and cardiology team. He also had elevated troponins and signs of possible non-ST elevation myocardial infarction versus troponinemia from his end -stage renal disease. In any event, the patient was initially started on heparin drip. He did receive dialysis per renal team recommendations. He received about 3 episodes. The patient's creatinine symptoms were stabilized, although they are still elevated from his end-stage renal disease, but more importantly, his fluid overload symptoms appeared to be resolved. He had less shortness of breath symptoms, less altered mental status. Over the course of his hospital stay, the patient also underwent a cardiac stress test that showed no significant EKG changes, specifically, no ischemic ST changes were seen, no arrhythmias were seen, and on the imaging portion of the study there were no perfusion defects or wall motion abnormalities. The last ejection fraction at stress was 56%. Again, the patient was able to ambulate and tolerate a p.o. diet. He was also seen by vascular surgery team and podiatry team and this is because of the patient's peripheral vascular disease and ischemic toe, but there were no signs of infection and pedal pulses remained weakly palpable and capillary refilling time was delayed, but again this is the patient's baseline status. He follows up with those doctors in the clinic for that. If the patient has less dizziness, he will be discharged home later today in improved condition. DISCHARGE MEDICATIONS: If he does go today, he will be sent with: 1. Aspirin 81 mg daily. 2. Atorvastatin 20 mg at bedtime. 3. Calcium acetate 667 mg t.i.d. 4. Vitamin D2 50,000 units weekly. 5. Folic acid 1 mg daily. 6. Gabapentin 300 mg b.i.d. 7. Hydralazine 50 mg p.o. t.i.d. 8. [place] 1 tab p.o. q.6. p.r.n. 9. Aspart insulin 4 units with meals. 10. Lantus 15 units subcu at bedtime. 11. Singulair 10 mg at bedtime. 12. Nifedipine XL 60 mg b.i.d. 13. Omeprazole 20 mg daily. 14. Flomax 0.4 mg daily. 15. Levaquin 750 mg p.o. daily for 5 more days. Home Meds Active Scripts Levofloxacin* (Levaquin*) 750 Mg Tablet, 750 MG PO DAILY for 7 Days, TAB Prov:BRYAN STRE[address] 06/13/16 Insulin Glargine* (Lantus*) 100 Unit/Ml Soln, 15 UNIT SC QHS for 10 Days, #1 BOTTLE Prov:VLADIMIR CEDEÑO MD 04/25/16 Insulin Aspart* (Novolog Insulin Pen*) 100 Unit/Ml Soln, 4 UNIT SC AC MEALS for 10 Days, #1 BOTTLE Prov:VLADIMIR CEDEÑO MD 04/25/16 Hydrocodone Bit-Acetaminophen (Hydrocodone Bit-APAP) 5-325MG Tablet, 1 TAB PO Q6H Y for MODERATE PAIN LEVEL 4-6 for 10 Days, #30 TAB Prov:VLADIMIR CEDEÑO MD 04/25/16 Gabapentin* (Gabapentin*) 300 Mg Capsule, 300 MG PO BID for 30 Days, CAP Prov:MADI RAYMOND 03/20/16 Aspirin (Aspirin) 81 Mg Chew, 81 MG PO DAILY for 30 Days Prov:MADI RAYMOND 03/20/16 Hydralazine Hcl* (Hydralazine Hcl*) 50 Mg Tab, 50 MG PO TID, #90 TAB Prov:MILTON CARTER MD 11/08/15 Reported Medications Atorvastatin* (Atorvastatin*) 40 Mg Tablet, 40 MG PO DAILY 06/30/15 Folic Acid* (Folic Acid*) 1 Mg Tablet, 1 MG PO DAILY, TAB 11/18/14 Omeprazole* (Omeprazole*) 20 Mg Capsule.dr, 20 MG PO DAILY, CAP 11/18/14 Montelukast Sodium* (Singulair*) 10 Mg Tablet, 10 MG PO HS, TAB 11/18/14 Calcium Acetate (Calcium Acetate) 667 Mg Tablet, 667 MG PO TID 05/31/13 Ergocalciferol (Vitamin D2) (VITAMIN D2) 50,000 Unit Capsule, 45356 UNIT PO WEEKLY 05/31/13 Nifedipine* (Nifedical XL*) 60 Mg/Bottle Tab.osm.24, 60 MG PO BID 05/31/13 Tamsulosin Hcl* (Tamsulosin Hcl*) 0.4 Mg Cap.er.24h, 0.4 MG PO DAILY 05/31/13 Pending Labs Laboratory Tests Test 06/13/16 12:32 06/13/16 17:06 06/13/16 20:47 06/14/16 06:05 Bedside Glucose 148mg/dL (70-220) 185mg/dL (70-220) 196mg/dL (70-220) Anion Gap 20 (8-16) Basophils # 0.010^3/ul (0.0-0.1) Basophils % 0.5% (0.0-2.0) Blood Morphology Comment Blood Urea Nitrogen 54mg/dl (7-20) Calcium Level 8.4mg/dl (8.4-10.2) Carbon Dioxide Level 29mmol/L (21-31) Chloride Level 93mmol/L (97-110) Creatinine 7.88mg/dl (0.61-1.24) Eosinophils # 0.210^3/ul (0.0-0.5) Eosinophils % 3.2% (0.0-7.0) Glucose Level 244mg/dl (70-220) Hematocrit 31.4% (42.0-52.0) Hemoglobin 10.5g/dl (14.0-18.0) Lymphocytes # 1.510^3/ul (0.8-2.9) Lymphocytes % 19.7% (15.0-51.0) Mean Corpuscular Hemoglobin 29.0pg (29.0-33.0) Mean Corpuscular Hemoglobin Concent 33.3g/dl (32.0-37.0) Mean Corpuscular Volume 87.0fl (82.0-101.0) Mean Platelet Volume 9.8fl (7.4-10.4) Monocytes # 1.210^3/ul (0.3-0.9) Monocytes % 14.9% (0.0-11.0) Neutrophils # 4.810^3/ul (1.6-7.5) Neutrophils % 61.7% (39.0-77.0) Nucleated Red Blood Cells # 0.010^3/ul (0.0-0.0) Nucleated Red Blood Cells % 0.0/100WBC (0.0-0.0) Platelet Count 30686^3/UL (140-440) Potassium Level 4.4mmol/L (3.5-5.1) Red Blood Count 3.6110^6/ul (4.70-6.10) Red Cell Distribution Width 16.3% (11.5-14.5) Sodium Level 138mmol/L (135-144) White Blood Count 7.810^3/ul (4.8-10.8) Test 06/14/16 08:05 Bedside Glucose 274mg/dL (70-220) [address] Jun 14, 2016 11:52
--- NOTE | 2016-06-14 18:56 | CONS ---
Date/Time of Note Date/Time of Note DATE: 06/14/16 TIME: 18:56 Assessment/Plan Assessment/Plan Chief Complaint/Hosp Course IMPRESSION: 1. Pulmonary edema.better 2. Hyperkalemia. better 3. End-stage renal disease. 4. Leukocytosis. 5. Anemia. 6. Rule out underlying pneumonia. 7. Atherosclerotic heart disease. 8. Dyslipidemia. 9 pvd plan hd am dc per pcp Problems: Consultation Date/Type/Reason Admit Date/Time Jun 11, 2016 at 07:41 Type of Consultation: renal 24 HR Interval Summary Constitutional: no complaints Exam/Review of Systems Vital Signs Vitals Vital Signs Date Time Temp Pulse Resp B/P Pulse Ox O2 Delivery O2 Flow Rate FiO2 06/14/16 12:26 64 06/14/16 11:12 97.9 20 101/49 96 06/14/16 08:00 Nasal Cannula 2.0 06/14/16 06:00 32 Intake and Output 06/13/16 06/13/16 06/14/16 15:00 23:00 07:00 Intake Total 1220 ml 300 ml Output Total 3500 ml 0 ml Balance -2280 ml 300 ml Exam Respiratory: clear to auscultation Cardiovascular: regular rate and rhythm Gastrointestinal: soft Musculoskeletal: nl extremities to inspection Results Result Diagram: 06/14/16 0605 06/14/16 0605 Results 24 hrs Laboratory Tests Test 06/13/16 20:47 06/14/16 06:05 06/14/16 08:05 06/14/16 11:53 Bedside Glucose 196 274 H 96 Anion Gap 20 H Basophils # 0.0 Basophils % 0.5 Blood Morphology Comment Blood Urea Nitrogen 54 H Calcium Level 8.4 Carbon Dioxide Level 29 Chloride Level 93 L Creatinine 7.88 H Eosinophils # 0.2 Eosinophils % 3.2 Glucose Level 244 #H Hematocrit 31.4 L Hemoglobin 10.5 L Lymphocytes # 1.5 Lymphocytes % 19.7 Mean Corpuscular Hemoglobin 29.0 Mean Corpuscular Hemoglobin Concent 33.3 Mean Corpuscular Volume 87.0 Mean Platelet Volume 9.8 Monocytes # 1.2 H Monocytes % 14.9 H Neutrophils # 4.8 Neutrophils % 61.7 Nucleated Red Blood Cells # 0.0 Nucleated Red Blood Cells % 0.0 Platelet Count 181 Potassium Level 4.4 Red Blood Count 3.61 L Red Cell Distribution Width 16.3 H Sodium Level 138 White Blood Count 7.8 Medications Medications Current Medications Lorazepam (Ativan) 0.5 mg Q6H PRN IV ANXIETY; Start 06/10/16 at 20:30 Nitroglycerin (Nitroglycerin (Sl Tab) 0.4 Mg) 1 tab Q5M PRN SL CHEST PAIN; Start 06/10/16 at 20:30 Acetaminophen (Tylenol Tab) 650 mg Q6H PRN PO PAIN LEVEL 1-3 OR FEVER Last administered on 06/13/16 23:07; Admin Dose 650 MG; Start 06/10/16 at 20:30 Acetaminophen/ Hydrocodone Bitart ([place] (5/325)) 1 tab Q6H PRN PO PAIN LEVEL 4 -6 Last administered on 06/11/16 04:03; Admin Dose 1 TAB; Start 06/10/16 at 20: 30 Morphine Sulfate (morphine) 2 mg Q4H PRN IV PAIN LEVEL 7-10; Start 06/10/16 at 20:30 Docusate Sodium 100 mg 100 mg Q12H PRN PO CONSTIPATION; Start 06/10/16 at 20:30 Levofloxacin/ Dextrose (Levaquin 500mg/ D5W 100 ml (Pmx)) 100 ml @ 100 mls/hr Q48H IVPB Last administered on 06/12/16 21:13; Admin Dose 100 MLS/HR; Start at 20:30 Aspirin (Aspirin) 81 mg DAILY PO Last administered on 06/14/16 08:07; Admin Dose 81 MG; Start 06/11/16 at 09:00 Atorvastatin Calcium (Lipitor) 40 mg DAILY PO Last administered on 06/14/16 08 :06; Admin Dose 40 MG; Start 06/11/16 at 09:00 Calcium Acetate (Phoslo) 667 mg TID PO Last administered on 06/14/16 12:26; Admin Dose 667 MG; Start 06/10/16 at 21:00 Ergocalciferol (Drisdol) 50,000 unit Sa@09 PO ; Start 06/16/16 at 09:00 Folic Acid (Folic Acid) 1 mg DAILY PO Last administered on 06/14/16 08:07; Admin Dose 1 MG; Start 06/11/16 at 09:00 Gabapentin (Neurontin) 300 mg BID PO Last administered on 06/14/16 08:06; Admin Dose 300 MG; Start 06/10/16 at 21:00 Hydralazine HCl (Apresoline) 50 mg TID PO Last administered on 06/14/16 08:08 ; Admin Dose 50 MG; Start 06/10/16 at 21:00 Insulin Glargine (Lantus) 15 unit QHS SC Last administered on 06/13/16 21:01; Admin Dose 15 UNIT; Start 06/10/16 at 21:00 Montelukast Sodium (Singulair) 10 mg HS PO Last administered on 06/13/16 20:51 ; Admin Dose 10 MG; Start 06/10/16 at 21:00 Nifedipine (Procardia Xl) 60 mg BID PO Last administered on 06/14/16 08:09; Admin Dose 60 MG; Start 06/10/16 at 21:00 Tamsulosin HCl (Flomax) 0.4 mg DAILY PO Last administered on 06/14/16 08:08; Admin Dose 0.4 MG; Start 06/11/16 at 09:00 Famotidine (Pepcid) 20 mg DAILY PO Last administered on 06/14/16 08:07; Admin Dose 20 MG; Start 06/11/16 at 09:00 Diagnostic Test (Pha) (Accucheck) 1 ea 02 XX Last administered on 06/12/16 02: 16; Admin Dose 1 EA; Start 06/11/16 at 02:00 Miscellaneous Information 1 ea NOTE XX ; Start 06/10/16 at 21:00 Glucose (Glutose) 15 gm Q15M PRN PO DECREASED GLUCOSE; Start 06/10/16 at 21:00 Glucose (Glutose) 22.5 gm Q15M PRN PO DECREASED GLUCOSE; Start 06/10/16 at 21: 00 Dextrose (D50w Syringe) 25 ml Q15M PRN IV DECREASED GLUCOSE; Start 06/10/16 at 21:00 Dextrose (D50w Syringe) 50 ml Q15M PRN IV DECREASED GLUCOSE; Start 06/10/16 at 21:00 Glucagon (Glucagen) 1 mg Q15M PRN IM DECREASED GLUCOSE; Start 06/10/16 at 21:00 Glucose (Glutose) 15 gm Q15M PRN BUCCAL DECREASED GLUCOSE; Start 06/10/16 at 21 :00 Ondansetron HCl (Zofran Inj) 4 mg Q6H PRN IV NAUSEA AND/OR VOMITING; Start at 21:30 Diagnostic Test (Pha) (Accucheck) 1 ea 02 XX Last administered on 06/13/16 02: 04; Admin Dose 1 EA; Start 06/12/16 at 02:00 Hydralazine HCl (Apresoline) 10 mg Q6H PRN IV ELEVATED BLOOD PRESSURE; Start at 10:00 Metoprolol Tartrate (Lopressor) 25 mg BID PO Last administered on 06/14/16 08: 09; Admin Dose 25 MG; Start 06/11/16 at 21:00 EDILBERTO RODRIGUEZ MD Jun 14, 2016 18:56
[2016-06-16] MEDS ORDERED: ERGOCALCIFEROL 50,000 UNIT CAP PO SCH (09:00)
== END 2016-06-14 16:30 | disposition home or self-care (01) | DRG 640 ==
LOC: E/R 17:17 → TEL 19:56 → OBSVTOIN 06-11 07:41
PROVIDERS: ADMIT Student in an Organized Health Care Education/Training Program; ATTEND Student in an Organized Health Care Education/Training Program
DX: E87.70 Fluid overload, unspecified (principal); N18.6 End stage renal disease; J18.9 Pneumonia, unspecified organism; E11.69 Type 2 diabetes mellitus with other specified complication; I12.0 Hypertensive chronic kidney disease with stage 5 chronic kidney disease or end stage renal disease; D63.1 Anemia in chronic kidney disease; E87.5 Hyperkalemia; Z99.2 Dependence on renal dialysis; Z91.15 Patient's noncompliance with renal dialysis; R41.82 Altered mental status, unspecified; E78.00 Pure hypercholesterolemia, unspecified; Z79.4 Long term (current) use of insulin; I25.10 Atherosclerotic heart disease of native coronary artery without angina pectoris; I70.203 Unspecified atherosclerosis of native arteries of extremities, bilateral legs
CPT/HCPCS: 36415; 71010; 78452; 80048; 80053; 80061; 81001; 81003; 82550; 82553; 82962; 83036; 83735; 84439; 84443; 84484; 85025; 85610; 85730; 87040; 90686; 90935; 93005; 93017; 93306; 94664; 96374; 99217; G0378; A9500; A9505; J1644; J1815; J1956; J2785; P9047

== ENCOUNTER 2016-08-02 08:37 | Day surgery (SDC) | payer MEDICARE, OTHER ==
[2016-08-02] VITALS (18 sets, daily range): BP systolic 108–136; BP diastolic 53–63; PULSE 60–65; RESP 11–18; Ht 167.6 cm; Wt 78.0 kg
[~2016-08-02] VITALS: Ht 167.6 cm; Wt 78.0 kg
[~2016-08-02 08:37] MED LIST changes: -ASP81 PO; +ASPI81TA3 PO; +LEVO750T25 PO
[2016-08-02] MEDS ORDERED: FURO-110 PO (10:12)
[2016-08-02] MEDS ORDERED: LANT3I SC (10:14)
[2016-08-02 10:18] LABS: ADD SCAN DIFF NO
[2016-08-02] MEDS ORDERED: AMLO-147 PO (10:18)
[2016-08-02 10:21] LABS: BASOPHILS % 0.4 % (0.0-2.0); EOSINOPHILS # 0.1 10^3/ul (0.0-0.5); HEMATOCRIT 31.7 % (42.0-52.0); HEMOGLOBIN 10.2 g/dl (14.0-18.0); LYMPHOCYTES # 0.9 10^3/ul (0.8-2.9); LYMPHOCYTES % 11.3 % (15.0-51.0); MEAN CORPUSCULAR HEMOGLOBIN 29.7 pg (29.0-33.0); MEAN CORPUSCULAR HGB CONC 32.2 g/dl (32.0-37.0); MEAN CORPUSCULAR VOLUME 92.2 fl (82.0-101.0); MEAN PLATELET VOLUME 11.6 fl (7.4-10.4); MONOCYTES % 12.2 % (0.0-11.0); NEUTROPHIL # 5.9 10^3/ul (1.6-7.5); NEUTROPHILS % 74.7 % (39.0-77.0); PLATELET COUNT 177 10^3/UL (140-415); RED BLOOD COUNT 3.44 10^6/ul (4.70-6.10); RED CELL DISTRIBUTION WIDTH 15.5 % (11.5-14.5); WHITE BLOOD COUNT 7.9 10^3/ul (4.8-10.8)
[2016-08-02 10:30] LABS: INR 1.05; PARTIAL THROMBOPLASTIN TIME 29.3 Sec (25.0-35.0); PROTIME 13.7 Sec (12.2-14.2); PT RATIO 1.1
[2016-08-02] MEDS ORDERED: DEXTROSE 50% 50 ML SYRINGE IV ONE (10:30)
[2016-08-02 10:38] LABS: CALCIUM 8.6 mg/dl (8.4-10.2); CREATININE 5.92 mg/dl (0.61-1.24); POTASSIUM 4.8 mmol/L (3.5-5.1)
[2016-08-02] MEDS ORDERED: IODIXANOL LOCM 100 ML BTL ONE (10:49)
[2016-08-02] MEDS ORDERED: LIDOCAINE 1% (MDV) 20 ML INJ ONE (10:49)
[2016-08-02] MEDS ORDERED: MIDAZOLAM 1 MG/ML 2 ML INJ ONE (10:50)
[2016-08-02] MEDS ORDERED: FENTAnyl 50 MCG/ML VIAL ONE (10:50)
--- NOTE | 2016-08-02 11:32 | RADRPT ---
PROCEDURE: XR Chest. CLINICAL INDICATION: Preoperative chest TECHNIQUE: Chest AP portable. COMPARISON: 06/10/2016 FINDINGS: The mediastinal structures are unremarkable. There is calcification of the thoracic aorta (consiste nt with atherosclerosis). There is mild cardiomegaly. The pulmonary vascularity is normal. The idris ng gandara are unremarkable. No consolidation is identified. The pleural spaces are unremarkable. There are senescent changes of the axial skeleton. IMPRESSION: Calcification of the thoracic aorta (consistent with atherosclerosis) Mild cardiomegaly No active intrathoracic disease RPTAT: [facility] .Abad Luis MD, Date Time Electronically viewed and signed by .Abad Luis MD, on 08/02/2016 11:32 .B/
[2016-08-02] MEDS ORDERED: HEPARIN 1000 UNITS/ML 10 ML INJ ONE (11:46)
--- NOTE | 2016-08-02 12:07 | PDOCDIS ---
Discharge Instructions DIAGNOSIS Discharge Diagnosis: ESRD CONDITION Patient Condition: Good HOME CARE INSTRUCTIONS: Special Diet: RENAL DIET ACTIVITY: Activity Restrictions: Slowly Increase Activity Rest between Activity Avoid heavy lifting No Sexual Activity Do not Drive Do not operate Machinery Do not operate Power Tool Avoid Heavy Housework Bathing Restrictions: Shower FOLLOW UP/APPOINTMENTS Appointments FOLLOWUP IN TWO WEEKS Guerda PANDA AT [facility] MAY REMOVE DRESSING TOMORROW MORNING NO BATHING OR SWIMMING FOR 2 WEEKS ELZA PANDA MD Aug 02, 2016 12:07
[2016-08-02] MEDS ORDERED: ONDANSETRON 4 MG INJ IV PRN (12:30)
--- NOTE | 2016-08-02 13:07 | OPR ---
DATE OF OPERATION: 08/02/2016 SURGEON: Irvin Ayala MD COSURGEON: Dr. Ricki George. FLUOROSCOPY: Dr. Ricki George PREOPERATIVE DIAGNOSIS: End-stage renal disease and left upper extremity rest pain. POSTOPERATIVE DIAGNOSIS: End-stage renal disease and left upper extremity rest pain. ANESTHESIA: Local with sedation. ESTIMATED BLOOD LOSS: Minimal. COMPLICATIONS: None. HEPARIN: 2500 units intravenously. CONTRAST: As recorded. ACCESS: Right common femoral artery 5-Tajik sheath. CLOSURE: Manual compression and closure device. The transfer ID, each of them for mentioned above. INDICATIONS: This is a 66-year-old gentleman with a history of end-stage renal disease and diabetes , who has had a longstanding history of left upper extremity rest pain and discomfort, specifically during his dialysis sessions. ____of a possible steal was discussed with the patient, therefore, r isk and benefits and alternatives were discussed with the patient, not limited to bleeding, thrombos is, embolization, myocardial infarction, , device malfunction, stroke, infection. After talkin g to the patient, he has agreed to proceed. PROCEDURE: 1. Ultrasound-guided access of the right common femoral artery. 2. Thoracic arch angiogram. 3. Third order selection of the axillary artery for a left upper extremity angiogram. FINDINGS: 1. Patent thoracic arch. 2. Right brachiocephalic artery patent. 3. Right subclavian artery patent. 4. Right common carotid artery patent. 5. Left common carotid artery patent. 6. Left subclavian artery patent. 7. Left axillary artery patent. 8. Left brachial artery patent. 9. Left arteriovenous fistula is patent. DESCRIPTION OF PROCEDURE: The patient was brought into the angio suite and positioned in supine pos ition on the fluoroscopic table. Sedation was then administered without complications. Bilateral g roins were shaved and prepped and draped in usual standard sterile fashion. A timeout and appropria te site was marked and confirmed. Local anesthesia was infiltrated in the region of the right commo n femoral artery. The artery was then cannulated with a micro access needle under ultrasound guidance and a Guidewire was then introduced into the iliac artery under fluoroscopic guidance. The needle was then removed and a microcatheter was placed. A SweetSlap wire was then passed into the infrarenal aorta under fluo roscopic guidance followed by a short 5-Tajik sheath over the wire. The sheath was appropriately f lushed with heparinized saline solution. A pigtail catheter was then passed into the thoracic arch and thoracic aortogram was performed. The patient was also given intravenous heparin of 2500 units. Findings are noted as above. At this point, using a [employer] guiding catheter, the left subclav lucius artery was then cannulated and the guiding catheter was placed in the distal aspect of the axill michel artery. Left upper extremity angiogram was then performed and the findings are noted above. No intervention was decided of the left upper extremity. The ____ guiding catheter was then removed a nd an Angio-Seal closure device was deployed in the right groin. All wires, catheters and ____ were accounted for and pressure was held and the patient was taken to the recovery unit in [facility] [place]. Essentially, the patient has a patent left subclavian artery and a fistula. We will discuss opt ions with the patient upon followup visit. Dictated By: IRVIN HER/IMANI Conf#: [id number] DID#: [id number]
--- NOTE | 2016-08-02 20:35 | RADRPT ---
Vent Rate: 63 bpm RR Interval: 0 msec KS Interval: 186 msec QRS Duration: 100 msec QT Interval: 440 msec QTC Interval: 450 msec P-R-T [place]: 43 - 44 - 63 degrees Normal sinus rhythm Normal ECG Electronically Signed By: Abdirashid Gamboa [id number]
== END 2016-08-02 16:30 | disposition home or self-care (01) ==
LOC: SDS 08:37
PROVIDERS: ATTEND Student in an Organized Health Care Education/Training Program
DX: I12.0 Hypertensive chronic kidney disease with stage 5 chronic kidney disease or end stage renal disease (principal); N18.6 End stage renal disease; E11.9 Type 2 diabetes mellitus without complications
CPT/HCPCS: 36901; 71010; 80048; 82962; 85025; 85610; 85730; 93005; C1760; C1769; C1894; J1644; J2250; J3010; Q9967

== ENCOUNTER 2016-09-03 21:40 | Emergency (ER) | payer MEDICARE, OTHER ==
[~2016-09-03] VITALS: Ht 167.6 cm; Wt 78.0 kg
[~2016-09-03 21:40] MED LIST changes: +AMLO-147 PO; -ERGO500037 PO; -FOLI-49 PO; +FURO-110 PO; -HYDR-3498 PO; -LEVO750T25 PO; -MONT10TA21 PO; -NIFE60TA12 PO; -NOVO3I SC; -OMEP20CA16 PO
[2016-09-03 22:01] VITALS: Ht 167.6 cm; Wt 78.0 kg
[2016-09-04] MEDS ORDERED: CEPHALEXIN 500 MG CAP PO ONE (01:00)
[2016-09-04] MEDS ORDERED: TRIMETHOPRIM/SULFAMETHOX (DS) TAB PO ONE (01:00)
[2016-09-04] MEDS ORDERED: HYDROCODONE/APAP (5/325) TAB PO ONE (01:00)
--- NOTE | 2016-09-04 01:56 | RADRPT ---
PROCEDURE: CT Brain without contrast. CLINICAL INDICATION: Altered level of consciousness. TECHNIQUE: A CT of the brain was performed on a multislice detector CT scanner utilizing axial sec tions from the skull base through the vertex without contrast. Images were reviewed on a [employer] PACS workstation. Exam CTDlvol = 45 mGy and DLP = 720 mGy-cm. One of the following 3 dose red uction techniques were used: Automated exposure control; adjustment of the mA and/or kV according to patient size; or use of iterative reconstruction technique. COMPARISON: None available FINDINGS: There is age appropriate central and peripheral atrophy. There is no midline shift. There is a mod erate degree of supratentorial periventricular and subcortical white matter hypodensities. There is no definite acute stroke. There is an unchanged punctate left midbrain calcification. There is no intracranial hemorrhage or abnormal extra-axial fluid collection. Visualized paranasal sinuses are clear. IMPRESSION: 1. No acute intracranial abnormality. 2. Nonspecific white matter changes most commonly seen with microvascular ischemic disease. 3. Nonspecific punctate midbrain calcification, most commonly seen post inflammatory/infectious suc h as cysticercosis. RPTAT: HMVK .Raudel Amezcua MD, Date Time Electronically viewed and signed by .Raudel Amezcua MD, on 09/04/2016 01:55 .K/
[2016-09-04] MEDS ORDERED: HYDR-906 PO (02:06)
[2016-09-04] MEDS ORDERED: IBUP-1542 PO (02:06)
[2016-09-04] MEDS ORDERED: BACTDS PO (02:06)
[2016-09-04] MEDS ORDERED: CEPH-443 PO (02:07)
[2016-09-04 02:26] VITALS: BP 157/68; PULSE 66; RESP 18; TEMP 97.8
--- NOTE | 2016-09-04 04:33 | ERD ---
ER Documentation Chief Complaint Date/Time DATE: 09/04/16 TIME: 04:28 Chief Complaint NOSE BLEED AFTER PICKING HIS NOW, +FACIAL PAIN HPI Patient is a 66-year-old male with a past medical history of retention, diabetes who presents emergency department with epistaxis as well as a headache. Patient states that he was picking his nose when it started bleeding. Patient reports tenderness to the nasal tip. Patient also reports swelling and redness to the tip of his nose. Patient states his current pain level is a 7 out of 10. Patient states that he was picking out a lesion at the tip of his nose when it started bleeding. Patient does report taking aspirin. He also states that he has facial pain and a headache which started 2 days ago. Patient denies any nausea, vomiting, loss of consciousness, blurry vision. Patient denies sudden onset of symptoms. Patient states his headache has been getting gradually worse. Patient denies any slurred speech, arm weakness, difficulty ambulating. Patient does report taking all medications as prescribed. Patient denies any fevers, chills, chest pain, shortness of breath , diaphoresis, loss of consciousness. ROS All systems reviewed and are negative except as per history of present illness. Medications Home Meds Active Scripts Cephalexin* (Keflex*) 500 Mg Capsule, 500 MG PO QID for 10 Days, CAP Prov:FRANCISCO JAVIER HENNING PA-C 09/04/16 Sulfamethoxazole-Trimethoprim* (Bactrim* DS) 800-160 Mg Tab, 1 TAB PO BID for 10 Days, TAB Prov:FRANCISCO JAVIER HENNING PA-C 09/04/16 Ibuprofen* (Motrin*) 600 Mg Tab, 600 MG PO Q6, #30 TAB Prov:FRANCISCO JAVIER HENNING PA-C 09/04/16 Hydrocodone/Acetaminophen (Howell 5-325 Tablet) 1 Each Tablet, 1 TAB PO Q6H Y for PAIN, #10 TAB Prov:FRANCISCO JAVIER HENNING PA-C 09/04/16 Gabapentin* (Gabapentin*) 300 Mg Capsule, 300 MG PO BID for 30 Days, CAP Prov:MADI RAYMOND 03/20/16 Aspirin (Aspirin) 81 Mg Chew, 81 MG PO DAILY for 30 Days Prov:MADI RAYMOND 03/20/16 Hydralazine Hcl* (Hydralazine Hcl*) 50 Mg Tab, 50 MG PO TID, #90 TAB Prov:MILTON CARTER MD 11/08/15 Reported Medications Amlodipine Besylate* (Amlodipine Besylate*) 10 Mg Tablet, 10 MG PO DAILY, #30 TAB 08/02/16 Insulin Glargine* (Lantus*) 100 Unit/Ml Soln, 30 UNIT SC QHS, #1 VIAL 08/02/16 Furosemide* (Lasix*) 20 Mg Tablet, 20 MG PO BID, TAB 08/02/16 Atorvastatin* (Atorvastatin*) 40 Mg Tablet, 40 MG PO DAILY 06/30/15 Calcium Acetate (Calcium Acetate) 667 Mg Tablet, 667 MG PO TID 05/31/13 Tamsulosin Hcl* (Tamsulosin Hcl*) 0.4 Mg Cap.er.24h, 0.4 MG PO DAILY 05/31/13 Allergies Allergies: Coded Allergies: No Known Allergy (Unverified , 08/02/16) PMhx/Soc History of Surgery: Yes (PLACEMENT AVF-LUE 4 YRS AGO) Anesthesia Reaction: No Hx Neurological Disorder: No Hx Respiratory Disorders: No Hx Cardiac Disorders: Yes (htn) Hx Psychiatric Problems: No Hx Miscellaneous Medical Probl: Yes (dm2, esrd on hd) Hx Alcohol Use: No Hx Substance Use: No Hx Tobacco Use: No FmHx Family History: diabetes Physical Exam Vitals Vital Signs Date Time Temp Pulse Resp B/P Pulse Ox O2 Delivery O2 Flow Rate FiO2 09/04/16 02:26 97.8 66 18 157/68 95 Room Air 09/03/16 22:01 98.1 71 18 172/77 95 Physical Exam GENERAL: Well-developed, well-nourished male. Appears in no acute distress. Speaking in full sentences HEAD: Normocephalic, atraumatic. No deformities or ecchymosis. No scalp hematomas. Nontender to palpation of bilateral temporal regions. EYE: Pupils equal, round, and reactive to light. EOMs intact. No conjunctival erythema. No eye discharge. ENT: External ear without any masses or tenderness. Auditory canals clear bilaterally. TM visualized bilaterally, non-erythematous, non-bulging. Nasal tip appears swollen and erythematous. Nasal tip tender to palpation. Scabbed lesion noted in the medial aspect of the right nostril. No active bleeding. No blood in the posterior pharynx. No septal hematoma. No vesicular lesions noted. Oropharynx is pink without any tonsillar erythema or exudates. No uvula deviation. No kissing tonsils. Non-tender to palpation of bilateral mastoid processes. NECK: Supple. No meningismus. Normal ROM of the neck. LUNG: Clear to auscultation bilaterally. No rhonchi, wheezing, rales or coarse breath sounds. HEART: Regular rate and rhythm. No murmurs, rubs or gallops. BACK: No midline tenderness. EXTREMITES: Equal pulses bilaterally. No peripheral clubbing, cyanosis or edema. No unilateral leg swelling. NEUROLOGIC: Alert and oriented x3, cooperative. Mood and affect appropriate to situation. Cranial nerves II through XII are grossly intact. Normal speech. Motor exam: 5/5 strength in upper and lower extremities. Sensory exam: Sensation intact to light touch on all four extremities. Cerebellar function exam:. No dysmetria on [id number] test. Steady gait. No pronator drift. SKIN: Normal color. Warm and dry. No rashes or lesions. Results 24 hrs Current Medications Medications (Trade) Dose Ordered Sig/Sita Route PRN Reason Start Time Stop Time Status Last Admin Dose Admin Trimethoprim/ Sulfamethoxazole (Bactrim (Ds)) 1 tab ONCE ONCE PO 09/04/16 01:00 09/04/16 01:01 DC 09/04/16 00:58 Cephalexin (Keflex) 500 mg ONCE ONCE PO 09/04/16 01:00 09/04/16 01:01 DC 09/04/16 00:58 Acetaminophen/ Hydrocodone Bitart (Howell (5/325)) 1 tab ONCE ONCE PO 09/04/16 01:00 09/04/16 01:01 DC 09/04/16 00:58 Procedures/MDM ED COURSE: The patient was stable throughout ED course. I kept the patient and/or family informed of laboratory and diagnostic imaging results throughout the ED course. DIAGNOSTIC IMAGING: Read by radiologist. DIAGNOSTIC IMAGING REPORT Patient: SRINI SHARPE : 1950 Age: 66 Sex: M MR #: [id number] DOS: 09/04/16 004 Ordering MD: FRANCISCO JAVIER HENNING PA-C Location: [facility] Room/Bed: PROCEDURE: CT Brain without contrast. CLINICAL INDICATION: Altered level of consciousness. TECHNIQUE: A CT of the brain was performed on a multislice detector CT scanner utilizing axial sections from the skull base through the vertex without contrast. Images were reviewed on a high-resolution PACS workstation. Exam CTDlvol = 45 mGy and DLP = 720 mGy-cm. One of the following 3 dose reduction techniques were used: Automated exposure control; adjustment of the mA and/or kV according to patient size; or use of iterative reconstruction technique. COMPARISON: None available FINDINGS: There is age appropriate central and peripheral atrophy. There is no midline shift. There is a moderate degree of supratentorial periventricular and subcortical white matter hypodensities. There is no definite acute stroke. There is an unchanged punctate left midbrain calcification. There is no intracranial hemorrhage or abnormal extra-axial fluid collection. Visualized paranasal sinuses are clear. IMPRESSION: 1. No acute intracranial abnormality. 2. Nonspecific white matter changes most commonly seen with microvascular ischemic disease. 3. Nonspecific punctate midbrain calcification, most commonly seen post inflammatory/infectious such as cysticercosis. RPTAT: HMVK .Raudel Amezcua MD, MD Date Time Electronically viewed and signed by .Raudel Amezcua MD, on 09/04/2016 01:55 .K/ CC: FRANCISCO JAVIER HENNING PA-C PROCEDURES: None. MEDICATIONS GIVEN: Bactrim, Keflex, Howell Patient tolerated medication well with no adverse reactions. Patient reported improvement in pain. MEDICAL DECISION MAKING: This is a 66 year old male who presents with swelling, redness and pain to the tip of his nose and headaches. Vital signs were reviewed. Patient was afebrile.. Skin exam revealed findings consistent vs cellulitis vs abscess formation of the nasal tip. Patient was given first dose of antibiotics in the ED. Given that patient reported headaches, CT imaging of the brain was obtained. CT imaging showed No acute intracranial abnormality. Nonspecific white matter changes most commonly seen with microvascular ischemic disease. Nonspecific punctate midbrain calcification, most commonly seen post inflammatory/infectious such as cysticercosis. Given these findings, the patient 's presentation is most consistent with cellulitis vs abscess formation and headaches. I have a much lower clinical concern for necrotizing fasciitis, sepsis, gangrene, Placido-Gerardo syndrome, toxic epidural necrolysis, herpes zoster, allergic reaction, allergic contact dermatitis, irritant contact dermatitis, fungal infection. Low suspicion for intracranial hemorrhage, meningitis, encephalitis, temporal arteritis, benign intracranial hypertension, intracranial mass, sinusitis, cluster headache. PRESCRIPTIONS: Keflex, Bactrim, Howell, Ibuprofen DISCHARGE: At this time, patient is stable for discharge and outpatient management. Patient advised to complete full course of antibiotics. Patient advised to return to the ED in 2 days for wound recheck. I have advised the patient to avoid any new products, creams or possible allergens. I have advised the patient to avoid scratching the lesions. I have instructed the patient to follow -up with his/her primary care physician in 1-2 days. If symptoms persist, patient may need to see a photovoltaic subcontractor for further examinations and testing. I have instructed the patient to promptly return to the ER at any time for any new or worsening symptoms including increased pain, fever, redness, swelling, warmth, difficulty breathing or vomiting. The patient and/or family expressed understanding of and agreement with this plan. All questions were answered. Home care instructions were provided. Patients blood pressure was elevated (>120/80) but appears stable without evidence of hypertensive emergency, hypertensive urgency or end-organ failure. I had discussion with the patient about the risks of hypertension. I have advised the patient to follow up with his/her primary care physician for outpatient monitoring and treatment for hypertension in 2-3 days. I have instructed the patient to return to the ER for any new or worsening symptoms including chest pain, shortness of breath, headache, blurred vision, confusion, nausea, vomiting or LOC. Departure Diagnosis: Primary Impression: Abscess Additional Impressions: Epistaxis Headache Headache type: unspecified Headache chronicity pattern: unspecified pattern Intractability: not intractable Qualified Code: R51 - Nonintractable headache, unspecified chronicity pattern, unspecified headache type Condition: Stable Patient Instructions: Self-Care for Headaches, Abscess, Antiobiotic Treatment Only Referrals: COMMUNITY CLINICS YOU HAVE RECEIVED A MEDICAL SCREENING EXAM AND THE RESULTS INDICATE THAT YOU DO NOT HAVE A CONDITION THAT REQUIRES URGENT TREATMENT IN THE EMERGENCY DEPARTMENT. FURTHER EVALUATION AND TREATMENT OF YOUR CONDITION CAN WAIT UNTIL YOU ARE SEEN IN YOUR DOCTORS OFFICE WITHIN THE NEXT 1-2 DAYS. IT IS YOUR RESPONSIBILITY TO MAKE AN APPOINTMENT FOR FOLOW-UP CARE. IF YOU HAVE A PRIMARY DOCTOR --you should call your primary doctor and schedule an appointment IF YOU DO NOT HAVE A PRIMARY DOCTOR YOU CAN CALL OUR PHYSICIAN REFERRAL HOTLINE AT IF YOU CAN NOT AFFORD TO SEE A PHYSICIAN YOU CAN CHOSE FROM THE FOLLOWING [facility] [address] [facility] [address] [facility] [address] [facility] [address] [facility] [address] [facility]. [facility] [address] [facility]. [facility] YOU HAVE RECEIVED A MEDICAL SCREENING EXAM AND THE RESULTS INDICATE THAT YOU DO NOT HAVE A CONDITION THAT REQUIRES URGENT TREATMENT IN THE EMERGENCY DEPARTMENT. FURTHER EVALUATION AND TREATMENT OF YOUR CONDITION CAN WAIT UNTIL YOU ARE SEEN IN YOUR DOCTORS OFFICE WITHIN THE NEXT 1-2 DAYS. IT IS YOUR RESPONSIBILITY TO MAKE AN APPOINTMENT FOR FOLOW-UP CARE. IF YOU HAVE A PRIMARY DOCTOR --you should call your primary doctor and schedule and appointment IF YOU DO NOT HAVE A PRIMARY DOCTOR YOU CAN CALL OUR PHYSICIAN REFERRAL HOTLINE AT . IF YOU CAN NOT AFFORD TO SEE A PHYSICIAN YOU CAN CHOSE FROM THE FOLLOWING [facility]: [facility] [address] [place] [address] [facility] [address] [place] [address] [facility] + [facility] [address] [place] [address] Additional Instructions: Llame al doctor MAANA y qi kenny SAUD PARA DENTRO DE 1-2 JC.Dgale a la secretaria que nosotros le instruimos hacer esta saud.Avise o llame si polk condicin se empeora antes de la saud. Regresa aqui si peor o no mejor. Return the emergency department 2 days for wound recheck. Return sooner for any worsening swelling, redness, fevers, chills, discharge. FRANCISCO JAVIER HENNING PA-C Sep 04, 2016 04:33 FRANCISCO JAVIER HENNING PA-C Sep 04, 2016 04:33
== END 2016-09-04 02:26 | disposition home or self-care (01) ==
LOC: FTE 21:40
DX: J34.0 Abscess, furuncle and carbuncle of nose (principal); R51 Headache; I12.0 Hypertensive chronic kidney disease with stage 5 chronic kidney disease or end stage renal disease; N18.6 End stage renal disease; E11.9 Type 2 diabetes mellitus without complications; Z99.2 Dependence on renal dialysis; Z79.4 Long term (current) use of insulin; Z79.82 Long term (current) use of aspirin
CPT/HCPCS: 70450

== ENCOUNTER 2016-09-25 07:44 | Day surgery (SDC) | payer MEDICARE, OTHER ==
[2016-09-24 10:37] VITALS: BMI 27.0
--- NOTE | 2016-09-24 14:13 | PREOPHP ---
DATE OF ADMISSION: 09/25/2016 JOHN Date of surgery is 09/25/[address] Irvin Ayala. Dear Dr. Ayala: Thank you very much for allowing me to participate in the care of Mr. Gilberto Arenas. HISTORY OF PRESENT ILLNESS: He is a 66-year-old [place] gentleman with a 28- year history of diabetes mellitus type 2 with hypertension and end-stage renal disease. He is being brought in electively by yourself for construction of a hemodialysis access. PAST MEDICAL HISTORY: 1. 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 2. Diabetes mellitus type 2. 3. Hypertension. 4. BPH. 5. Hyperlipidemia. 6. Vitamin D deficiency. 7. Bilateral lower extremity peripheral vascular disease. 8. Left arm subclavian steal. 9. Usual childhood diseases. 10. Status post CE and IOL, OU. 11. Status post left arm fistula construction. ALLERGIES: HE HAS NO KNOWN MEDICAL ALLERGIES. CURRENT MEDICATIONS: 1. Calcium acetate 667 mg, 2 pills prior to each meal. 2. Amlodipine 10 mg a day. 3. Hydralazine 50 twice a day. 4. Tamsulosin 0.4 at bedtime. 5. Gabapentin 300 at bedtime. 6. Atorvastatin 40 mg a day. 7. Vitamin D 1.25 mg or 50,000 units once a month. 8. Furosemide 20 mg a day. 9. Aspirin 81 mg, which is on hold. 10. Lantus 10 units in the morning, 30 units at bedtime. HABITS: He is a nonsmoker, denies alcohol or recreational drugs, 0 to 2 cups of coffee per day. SOCIAL HISTORY: He was born in [place] and raised there. Has lived in the [place] since [place]. He is retired as a technical service representative. FAMILY HISTORY: Negative for coronary artery disease, negative for diabetes, negative for hypertension, negative for stroke. Negative for asthma, negative for glaucoma, negative for migraine, negative for colon cancer, negative for prostate cancer, and negative for anesthesia reactions. REVIEW OF SYSTEMS: HEAD AND EYES: Negative. His last eye check was [address] Placido Marrero. ENT: Negative. RESPIRATORY: Negative. CARDIAC: Negative. GASTROINTESTINAL: Negative. HEMATOLOGIC: Negative. UROLOGIC: Notable for dysuria and otherwise negative. ENDOCRINE: Negative. He is not having hypoglycemic reactions. MUSCULOSKELETAL: Negative. NEUROLOGIC: Negative. GENERAL: No weight change, no fever, chills or sweats. No changing skin lesions. PHYSICAL EXAMINATION: GENERAL: At the time of physical exam, he is a pleasant gentleman in no sofia distress. VITAL SIGNS: He has a height of 5 feet 6 inches, weight 171, blood pressure is 120/60, pulse 64, temperature is 98 degrees. HEENT: NC/AT; PERRL, EOMI, anicteric, fundi are without note; tympanic membranes Are without note; oropharynx demonstrates no lesions. NECK: Supple. There is a midline trachea. There is no thyromegaly; pulses are without audible bruits. RESPIRATORY: Clear to auscultation and percussion. CARDIAC: Demonstrates no JVD, a regular rate and rhythm without rubs, murmurs, or gallops. ABDOMEN: Soft, nontender, active bowel sounds, no hepatosplenomegaly, no CVA tenderness, no hernias, and no bruits. EXTREMITIES: Demonstrate no clubbing, cyanosis, or edema. He has decreased pulses peripherally with monofilament OF stocking glove pattern of sensory loss. VACCINES: Sodium 143, potassium 4.7, chloride 99, bicarbonate 31, random blood sugar 135, A1c 7.5, BUN 34, creatinine 5.5. Liver chemistries without note. White count 5.7, hemoglobin 14.4, hematocrit 45.7, platelet count 200. Pro time 11.4 with an INR of 0.97, PTT is 28 seconds. Urinalysis 1.020, pH is 7.5, 2+ glucose, trace blood, 4+ protein, negative leukocytes. EKG demonstrates sinus rhythm at 62 with intervals 0.17, 0.10, 0.43, and nonspecific intraventricular conduction delay axis is 15 degrees. IMAGING: Chest x-ray was done at [facility]. ASSESSMENT AND PLAN: Preoperative medical consultation prior to elective hemodialysis shunt construction. At this time, I find this patient, Mr. Rafi Malagon to be an acceptable surgical candidate and concur with your plans to proceed with surgery. He is at average surgical risk as compared to his age- matched peers and should do well using all standard and routine anesthesia precautions. I, therefore, recommend proceeding with surgery. Respectfully yours, Dictated By: JOB PAUL MD JR/IMANI RESENDIZ: 09/24/2016 12:16:03 Conf#: [id number] [facility]#: [id number] CC: IRVIN AYALA MD; Placido Marrero; EDILBERTO RODRIGUEZ MD;*EndCC* MTDD
[2016-09-25] VITALS (10 sets, daily range): BP systolic 114–141; BP diastolic 53–63; PULSE 64–70; RESP 11–38; Ht 167.6 cm; Wt 78.5 kg
[~2016-09-25] VITALS: Ht 167.6 cm; Wt 78.5 kg
[~2016-09-25 07:44] MED LIST changes: -APR50 PO; +BACTDS PO; +CEPH-443 PO; +HYDR-3672 PO; +HYDR-906 PO; +IBUP-1542 PO
[2016-09-25] MEDS ORDERED: VANCOMYCIN 1 GM (PMX) 250 ML IVPB ONE (08:00)
--- NOTE | 2016-09-25 08:13 | HPN ---
Date/Time of Note Date/Time of Note DATE: 09/25/16 TIME: 08:12 Interval H&P Admission Note Pt. seen H&P reviewed: No system changes ELZA PANDA MD September 25, 2016 08:12
[2016-09-25] MEDS ORDERED: FURO-110 PO (08:53)
[2016-09-25] MEDS ORDERED: AMP500 PO (08:57)
[2016-09-25] MEDS ORDERED: AMLO5TAB4 PO (08:58)
[2016-09-25] MEDS ORDERED: ERGO500037 PO (08:58)
[2016-09-25] MEDS ORDERED: DEXTROSE 5%-0.9% NACL 1,000 ML IV SCH (09:30)
[2016-09-25] MEDS ORDERED: MIDAZOLAM 1 MG/ML 2 ML INJ ONE (10:13)
[2016-09-25] MEDS ORDERED: FENTAnyl 50 MCG/ML VIAL ONE (10:13)
[2016-09-25] MEDS ORDERED: ROPIVACAINE 0.5 % 30 ML VIAL ONE (10:14)
[2016-09-25] MEDS ORDERED: LIDOCAINE 2% (SDV) 5 ML INJ ONE (10:14)
[2016-09-25] MEDS ORDERED: PROPOFOL 60 ML ONE (10:14)
[2016-09-25] MEDS ORDERED: GELATIN SIZE 100 SPONGE ONE (10:16)
[2016-09-25] MEDS ORDERED: THROMBIN 5000 UNIT VIAL ONE ×2 (10:16→10:17)
[2016-09-25] MEDS ORDERED: LIDOCAINE 1% (STERILE-PAK) 30 ML INJ ONE (10:16)
[2016-09-25] MEDS ORDERED: HEPARIN 1000 UNITS/ML 10 ML INJ ONE (10:17)
[2016-09-25] MEDS ORDERED: FENTAnyl 50 MCG/ML VIAL IV PRN ×3 (11:30)
[2016-09-25] MEDS ORDERED: hydrALAzine 20 MG INJ IV PRN (11:30)
[2016-09-25] MEDS ORDERED: INSULIN ASPART [NOVOLOG] 3 ML PEN SC ONE (11:30)
[2016-09-25] MEDS ORDERED: LABETALOL HCL 20MG INJ IV PRN (11:30)
[2016-09-25] MEDS ORDERED: MEPERIDINE 25 MG INJ IV PRN (11:30)
[2016-09-25] MEDS ORDERED: EPHEDrine SULFATE 50 MG/5 ML SYG IV PRN (11:30)
[2016-09-25] MEDS ORDERED: ONDANSETRON 4 MG INJ IV PRN ×2 (11:30→12:00)
[2016-09-25] MEDS ORDERED: METOCLOPRAMIDE 10 MG INJ IV PRN (11:30)
[2016-09-25] MEDS ORDERED: DIPHENHYDRAMINE 50 MG INJ IV PRN ×2 (11:30→12:00)
--- NOTE | 2016-09-25 11:56 | PDOCDIS ---
Discharge Instructions DIAGNOSIS Discharge Diagnosis: ESRD CONDITION Patient Condition: Good HOME CARE INSTRUCTIONS: Special Diet: RENAL DIET ACTIVITY: Activity Restrictions: Slowly Increase Activity Avoid heavy lifting Do not Drive Do not operate Machinery Do not operate Power Tool Avoid Heavy Housework Activity Restrictions Comment: MAY SHOWER IN 48HOURS FOLLOW UP/APPOINTMENTS Appointments FOLLOWUP WITH [facility] IN 2 WEEKS DO NOT REMOVE THE PASTE OFF THE INCISION SITE MAY HAVE DIALYSIS VIA HIS FISTULA TOMORROW MAY SHOWER IN 48HOURS ELZA PANDA MD September 25, 2016 11:56
[2016-09-25] MEDS ORDERED: NALOXONE (0.4 MG/ML) INJ IV PRN (12:00)
[2016-09-25] MEDS ORDERED: HYDROmorphONE 1 MG/ML SYG IV PRN ×2 (12:00)
--- NOTE | 2016-09-25 13:36 | OPPN ---
Date/Time of Note Date/Time of Note DATE: 09/25/16 TIME: 13:36 Event Note [id number] Morales Morataya M.D. September 25, 2016 13:36
--- NOTE | 2016-09-26 17:10 | OPR ---
DATE OF OPERATION: 09/25/2016 SURGEON: Irvin Ayala MD PREOPERATIVE DIAGNOSIS: Left upper extremity steal syndrome, end-stage renal disease. POSTOPERATIVE DIAGNOSIS: Left upper extremity steal syndrome, end-stage renal disease. OPERATION PERFORMED: 1. Left upper extremity brachiocephalic fistula banding. 2. Ligation of cephalic vein tributary. ANESTHESIA: Regional block and local. COMPLICATIONS: None. ESTIMATED BLOOD LOSS: Minimal. TRANSFUSIONS: None. SPECIMEN: None. HEPARIN: None. INDICATIONS: This is a 66-year-old gentleman with a history of end-stage renal disease who, over e past year, had slowly developed significant discomfort of his left upper extremity and muscle wast ing. The patient also had his left upper extremity become limited in terms of how much he can contr act his wrist and be able to have a tight handgrip. The patient had not followed up with his vascul ar surgeon as he was lost to surveillance and did not want to continue with his previous surgeon; th erefore, he was referred to us for further evaluation. Discussed risks, benefits, and alternatives with the patient but not limited to , pneumonia, [place] , stroke, infection, thrombosis of fistula, revision of fistula, and nerve injury, and the patient h as elected to undergo surgical intervention. DESCRIPTION OF PROCEDURE: The patient was brought into the operating room and placed in supine posi tion. The arms were placed at 80 degrees. The normal bony prominences were padded. Anesthesia tea m had placed appropriate lines, and a regional block was given. Time out was performed, and appropr iate site was marked and confirmed. The patient's left upper extremity was prepped and draped in [facility] standard sterile fashion. Preoperative antibiotics were administered prior to skin incision. A longitudinal skin incision was made on the anterolateral aspect of the upper arm near his anastomo sis. At this point, dissection was deepened through the subcutaneous tissue, and the fistula was id entified. The fistula was tracked back its anastomosis site in which it was identified the patient has a tributary of the cephalic vein that travels toward the forearm. This was ligated with a 3-0 s ilk suture, and medium vascular clip was applied. At this point, using our Doppler, an 0 silk sutur e was placed around the fistula, and as we went ahead and placed appropriate outer compression aroun d the fistula, it improved the Doppler signal at the radial artery near the wrist. At this point, [address] with 3-0 silk suture. There was adequate and improved Doppler signal of the radia l and ulnar arteries. Using a 3-0 Vicryl suture, the subcutaneous tissue was closed in interrupted dermal fashion. Dermabond was applied. The patient tolerated procedure well and was taken to the ostanesthesia care unit in stable condition. Arm sling was provided for comfort for the patient unt il his motor and sensory returns after his block. All instrument, sponge, and needle counts were correct x2. Dictated By: IRVIN HER/IMANI Conf#: [id number] DID#: [id number]
== END 2016-09-25 13:18 | disposition home or self-care (01) ==
LOC: SDS 07:44
PROVIDERS: ATTEND Student in an Organized Health Care Education/Training Program
DX: T82.898A Other specified complication of vascular prosthetic devices, implants and grafts, initial encounter (principal); Y84.1 Kidney dialysis as the cause of abnormal reaction of the patient, or of later complication, without mention of misadventure at the time of the procedure; Y92.89 Other specified places as the place of occurrence of the external cause; I12.0 Hypertensive chronic kidney disease with stage 5 chronic kidney disease or end stage renal disease; N18.6 End stage renal disease; E11.9 Type 2 diabetes mellitus without complications
CPT/HCPCS: 37607; 82962; 84132; J1644; J2250; J2795; J3010; J3370

== ENCOUNTER 2016-11-03 08:25 | Emergency (ER) | payer MEDICARE, OTHER ==
[~2016-11-03] VITALS: Ht 177.8 cm; Wt 81.0 kg
[~2016-11-03 08:25] MED LIST changes: +AMLO5TAB4 PO; +AMP500 PO; -BACTDS PO; -CEPH-443 PO; +ERGO500037 PO; -GABA300C16 PO; -HYDR-906 PO; -IBUP-1542 PO
[2016-11-03 08:30] VITALS: Ht 177.8 cm; Wt 81.0 kg
--- NOTE | 2016-11-03 09:39 | RADRPT ---
PROCEDURE: CT Brain without. CLINICAL INDICATION: Trauma, fall. TECHNIQUE: A CT of the brain was performed on multidetector high-resolution CT scanner utilizing a xial sections from the skull base through the vertex without contrast. The scan was reviewed in sof t tissue brain and high frequency resolution bone algorithm windows. Images were reviewed on a high -resolution PACS workstation. One or more the following does reduction techniques were utilized: Aut omated exposure control, adjustment of the mA/ or kV according to patient's size, or use of iterativ e reconstruction technique. The exam CTDI = 42.56 mGy and the DLP = 720.23 mGy-cm. COMPARISON: Brain CT 09/04/2016. FINDINGS: The ventricles and sulci are mildly prominent indicative of volume loss. There is no intracranial h emorrhage, mass effect or midline shift. No abnormal intra-axial or extra-axial fluid collections a re seen. The feldman/white matter differentiation is preserved. Punctate nonspecific calcification is a gain noted in the left mid brain which may represent sequela of prior infection inflammation such as neurocysticercosis. There are mild scattered foci of hypoattenuation in the white matter, which are nonspecific in etiol ogy but likely reflect chronic small vessel ischemic changes. There are mild intracranial vascular calcifications consistent with atherosclerosis. The visualized paranasal sinuses demonstrate mild sc attered mucosal thickening mainly in ethmoid air cells. The mastoid air cells are essentially clear . Mild left frontal scalp swelling and hematoma are noted without underlying skull fracture. IMPRESSION: 1. No acute intracranial hemorrhage, transcortical infarction or mass effect. 2. Mild intracranial atherosclerosis and chronic small vessel ischemic changes. 3. Similar punctate nonspecific calcification in the left mid brain which may represent sequela of prior infection inflammation such as neurocysticercosis. 4. Mild generalized cerebral volume loss. 5. Mild left frontal scalp swelling and hematoma without underlying skull fracture. RPTAT: HH .Pamela Sal MD, MD Date Time Electronically viewed and signed by .Pamela Sal MD, MD on 11/03/2016 09:39 .N/
--- NOTE | 2016-11-03 09:42 | RADRPT ---
PROCEDURE: CT scan facial bones CLINICAL INDICATION: Trauma. Facial injury. Pain. TECHNIQUE: CT scan of the face was performed on the a high-resolution multidetector CT scanner wit h multiple contiguous axial images obtained through the face. Coronal and sagittal reformatted imag es were obtained from the axial source images. Exam CTDI = 26.6 mGy and the DLP = 687.25 mGy-cm. COMPARISON: None available. FINDINGS: Mild left frontal scalp and left facial soft tissue swelling and hematoma are noted underlying skull fracture. No acute fracture or dislocation is seen. There is thinning of bilateral lens indicative of prior l ens replacement. The orbital globes are otherwise unremarkable. Nasal septum is intact. Paranasal s inuses demonstrate mild scattered mucosal thickening mainly in ethmoid air cells and maxillary sinus es. IMPRESSION: 1. Mild left frontal scalp and left facial soft tissue swelling and hematoma are noted without unde rlying fracture. 2. Mild scattered paranasal sinus disease. RPTAT: HH .Pamela Sal MD, Date Time Electronically viewed and signed by .Pamela Sal MD, MD on 11/03/2016 09:42 .N/
--- NOTE | 2016-11-03 09:56 | RADRPT ---
PROCEDURE: CT cervical spine without contrast CLINICAL INDICATION: Trauma. Neck pain. TECHNIQUE: CT scan of the cervical spine was performed [facility] No IV contrast was administered. Coronal and sagittal reformatted images were obtained from th e axial source images. Images were reviewed on a high-resolution PACS workstation. One or more the f ollowing does reduction techniques were utilized: Automated exposure control, adjustment of the mA/ or kV according to patient's size, or use of iterative reconstruction technique. Exam CTDI = 22.50 m Gy and the DLP = 446.91 mGy-cm. COMPARISON: None available. FINDINGS: There is straightening of the alignment of the cervical spine with loss of the normal cervical lordo sis. Alignment remains intact. No acute fracture or dislocation is seen. The vertebral body heigh ts are preserved. No mass, hematoma, or other soft tissue abnormality is seen. There are multilevel mild to moderate degenerative changes of the cervical spine, manifested by oste ophytosis and disc height narrowing, most prominent at C5-C6 and C7-T1. Uncovertebral osteophytes an d facet arthropathy result in multilevel foraminal stenosis: at C3-C4 mild on the left, at C4-C5 sev ere on the left, at C5-C6 mild to moderate on the right, and at C6-C7 mild bilaterally. Posterior disk osteophyte complexes contribute to mild spinal canal narrowing at C3-C4 through C5-C6 . IMPRESSION: 1. Straightening of normal cervical lordosis. 2. No acute fracture or traumatic subluxation. 3. Multilevel mild to moderate degenerative changes of the cervical spine, most prominent at C5-C6 and at C7-T1. 4. Posterior disk osteophyte complexes contribute to mild spinal canal narrowing at C3-C4 through C 5-C6. 5. Multilevel foraminal stenosis as outlined in details in findings. RPTAT: HH .Pamela Sal MD, MD Date Time Electronically viewed and signed by .Pamela Sal MD, MD on 11/03/2016 09:56 .N/
--- NOTE | 2016-11-03 10:13 | RADRPT ---
PROCEDURE: Ultrasound of the bilateral orbital globes CLINICAL INDICATION: Blurry vision. Rule out rectal detachment. TECHNIQUE: Targeted ultrasound to the bilateral orbital globe is performed. COMPARISON: None FINDINGS: The bilateral orbital globe appears intact without evidence of retinal detachment or intraocular hem orrhage. Adjacent soft tissues are within normal limits. IMPRESSION: Unremarkable ultrasound of the left orbital globe without evidence of retinal detachment. RPTAT: QQ .Angel Sarmiento MD, MD Date Time Electronically viewed and signed by .Angel Sarmiento MD, on 11/03/2016 10:12 .L/
--- NOTE | 2016-11-03 15:06 | ERD ---
ER Documentation Chief Complaint Date/Time DATE: 11/03/16 TIME: 15:03 Chief Complaint lt eye blurry vision , headcahe s/p slip and fall in shower 10/31, no k/o HPI This patient is a 66-year-old male with no significant medical history presenting to the emergency department for headache and left eye pain with associated swelling after a fall 3 days ago. The patient was in the shower when he slipped and fell onto his head. There was no loss of consciousness. The patient is taken no medication for pain. He denies other injuries or symptoms. ROS All systems reviewed and are negative except as per history of present illness. Medications Home Meds Active Scripts Aspirin (Aspirin) 81 Mg Chew, 81 MG PO DAILY for 30 Days Prov:MADI RAYMOND 03/20/16 Hydralazine Hcl* (Hydralazine Hcl*) 50 Mg Tab, 50 MG PO TID, #90 TAB Prov:MILTON CARTER MD 11/08/15 Reported Medications Amlodipine Besylate* (Norvasc*) 5 Mg Tablet, 5 MG PO QHS, TAB 09/25/16 Ergocalciferol (Vitamin D2) (VITAMIN D2) 50,000 Unit Capsule, 78199 UNIT PO ONCE A MONTH, CAP 09/25/16 Ampicillin* (Ampicillin*) 500 Mg Cap, 500 MG PO QID, CAP 09/25/16 Furosemide* (Lasix*) 20 Mg Tablet, 20 MG PO DAILY, TAB 09/25/16 Amlodipine Besylate* (Amlodipine Besylate*) 10 Mg Tablet, 10 MG PO DAILY, #30 TAB 08/02/16 Insulin Glargine* (Lantus*) 100 Unit/Ml Soln, 30 UNIT SC QHS, #1 VIAL 08/02/16 Atorvastatin* (Atorvastatin*) 40 Mg Tablet, 40 MG PO DAILY 06/30/15 Calcium Acetate (Calcium Acetate) 667 Mg Tablet, 667 MG PO TID 05/31/13 Tamsulosin Hcl* (Tamsulosin Hcl*) 0.4 Mg Cap.er.24h, 0.4 MG PO DAILY 05/31/13 Allergies Allergies: Coded Allergies: No Known Allergy (Unverified , 09/25/16) PMhx/Soc History of Surgery: Yes (right shoulder) Anesthesia Reaction: No Hx Neurological Disorder: No Hx Respiratory Disorders: No Hx Cardiac Disorders: Yes (HTN, High cholesterol, DM) Hx Psychiatric Problems: No Hx Miscellaneous Medical Probl: No (RENAL FAILURE, DIALYSIS) Hx Alcohol Use: No Hx Substance Use: No Hx Tobacco Use: No Physical Exam Vitals Vital Signs Date Time Temp Pulse Resp B/P Pulse Ox O2 Delivery O2 Flow Rate FiO2 11/03/16 08:30 98.1 87 18 157/69 98 Physical Exam Const: Nontoxic, well-appearing male in no acute distress. Head: There is ecchymosis surrounding the left eye with associated periorbital edema. Extraocular movements are intact bilaterally. Eyes: Normal Conjunctiva ENT: Normal External Ears, Nose and Mouth. Neck: Full range of motion..~ No meningismus. Resp: Clear to auscultation bilaterally Cardio: Regular rate and rhythm, no murmurs Abd: Soft, non tender, non distended. Normal bowel sounds Skin: No petechiae or rashes Back: No midline or flank tenderness Ext: No cyanosis, or edema Neur: Awake and alert Psych: Normal Mood and Affect Results 24 hrs [place] [id number] Radiology Main Line: [phone] DIAGNOSTIC IMAGING REPORT Patient: SRINI SHARPE : 1950 Age: 66 Sex: M MR #: [id number] DOS: 11/03/16 0000 Ordering MD: TRACI IVY PA-C Location: [facility] Room/Bed: PROCEDURE: CT Brain without. CLINICAL INDICATION: Trauma, fall. TECHNIQUE: A CT of the brain was performed on multidetector high-resolution CT scanner utilizing axial sections from the skull base through the vertex without contrast. The scan was reviewed in soft tissue brain and high frequency resolution bone algorithm windows. Images were reviewed on a high- resolution PACS workstation. One or more the following does reduction techniques were utilized: Automated exposure control, adjustment of the mA/ or kV according to patient's size, or use of iterative reconstruction technique. The exam CTDI = 42.56 mGy and the DLP = 720.23 mGy-cm. COMPARISON: Brain CT 09/04/2016. FINDINGS: The ventricles and sulci are mildly prominent indicative of volume loss. There is no intracranial hemorrhage, mass effect or midline shift. No abnormal intra- axial or extra-axial fluid collections are seen. The feldman/white matter differentiation is preserved. Punctate nonspecific calcification is again noted in the left mid brain which may represent sequela of prior infection inflammation such as neurocysticercosis. There are mild scattered foci of hypoattenuation in the white matter, which are nonspecific in etiology but likely reflect chronic small vessel ischemic changes. There are mild intracranial vascular calcifications consistent with atherosclerosis. The visualized paranasal sinuses demonstrate mild scattered mucosal thickening mainly in ethmoid air cells. The mastoid air cells are essentially clear. Mild left frontal scalp swelling and hematoma are noted without underlying skull fracture. IMPRESSION: 1. No acute intracranial hemorrhage, transcortical infarction or mass effect. 2. Mild intracranial atherosclerosis and chronic small vessel ischemic changes. 3. Similar punctate nonspecific calcification in the left mid brain which may represent sequela of prior infection inflammation such as neurocysticercosis. 4. Mild generalized cerebral volume loss. 5. Mild left frontal scalp swelling and hematoma without underlying skull fracture. RPTAT: HH .Pamela Sal MD, MD Date Time Electronically viewed and signed by .Pamela Sal MD, on 11/03/2016 09: 39 .N/ CC: TRACI IVY PA-C PROCEDURE: CT cervical spine without contrast CLINICAL INDICATION: Trauma. Neck pain. TECHNIQUE: CT scan of the cervical spine was performed on a multidetector high -resolution CT scanner. No IV contrast was administered. Coronal and sagittal reformatted images were obtained from the axial source images. Images were reviewed on a high-resolution PACS workstation. One or more the following does reduction techniques were utilized: Automated exposure control, adjustment of the mA/ or kV according to patient's size, or use of iterative reconstruction technique. Exam CTDI = 22.50 mGy and the DLP = 446.91 mGy-cm. COMPARISON: None available. FINDINGS: There is straightening of the alignment of the cervical spine with loss of the normal cervical lordosis. Alignment remains intact. No acute fracture or dislocation is seen. The vertebral body heights are preserved. No mass, hematoma, or other soft tissue abnormality is seen. There are multilevel mild to moderate degenerative changes of the cervical spine , manifested by osteophytosis and disc height narrowing, most prominent at C5- C6 and C7-T1. Uncovertebral osteophytes and facet arthropathy result in multilevel foraminal stenosis: at C3-C4 mild on the left, at C4-C5 severe on the left, at C5-C6 mild to moderate on the right, and at C6-C7 mild bilaterally. Posterior disk osteophyte complexes contribute to mild spinal canal narrowing at C3-C4 through C5-C6. IMPRESSION: 1. Straightening of normal cervical lordosis. 2. No acute fracture or traumatic subluxation. 3. Multilevel mild to moderate degenerative changes of the cervical spine, most prominent at C5-C6 and at C7-T1. 4. Posterior disk osteophyte complexes contribute to mild spinal canal narrowing at C3-C4 through C5-C6. 5. Multilevel foraminal stenosis as outlined in details in findings. RPTAT: HH .Pamela Sal MD MD Date Time Electronically viewed and signed by .Pamela Sal MD, MD on 11/03/2016 09: 56 PROCEDURE: CT scan facial bones CLINICAL INDICATION: Trauma. Facial injury. Pain. TECHNIQUE: CT scan of the face was performed on the a high-resolution multidetector CT scanner with multiple contiguous axial images obtained through the face. Coronal and sagittal reformatted images were obtained from the axial source images. Exam CTDI = 26.6 mGy and the DLP = 687.25 mGy-cm. COMPARISON: None available. FINDINGS: Mild left frontal scalp and left facial soft tissue swelling and hematoma are noted underlying skull fracture. No acute fracture or dislocation is seen. There is thinning of bilateral lens indicative of prior lens replacement. The orbital globes are otherwise unremarkable. Nasal septum is intact. Paranasal sinuses demonstrate mild scattered mucosal thickening mainly in ethmoid air cells and maxillary sinuses. IMPRESSION: 1. Mild left frontal scalp and left facial soft tissue swelling and hematoma are noted without underlying fracture. 2. Mild scattered paranasal sinus disease. RPTAT: HH .Pamela Sal MD, MD Date Time Electronically viewed and signed by .Pamela Sal MD, MD on 11/03/2016 09: 42 .N/ CC: TRACI IVY PA-C PROCEDURE: Ultrasound of the bilateral orbital globes CLINICAL INDICATION: Blurry vision. Rule out rectal detachment. TECHNIQUE: Targeted ultrasound to the bilateral orbital globe is performed. COMPARISON: None FINDINGS: The bilateral orbital globe appears intact without evidence of retinal detachment or intraocular hemorrhage. Adjacent soft tissues are within normal limits. IMPRESSION: Unremarkable ultrasound of the left orbital globe without evidence of retinal detachment. RPTAT: QQ .Angel Sarmiento MD, MD Date Time Electronically viewed and signed by .Angel Sarmiento MD, MD on 11/03/2016 10:12 .L/ CC: TRACI IVY PA-C Procedures/MDM 66-year-old male presenting to the emergency department with complaints of left eye pain and headache after fall 3 days ago. There was no loss of consciousness. CT neck was negative for fracture. CT head was negative for intracranial hemorrhage. CT maxillofacial bones negative for fracture. Ultrasound of the left orbit shows no signs of retinal detachment or other abnormalities. All radiology interpreted by the radiologist. The patient declined pain medication in the department. The patient's physical examination was unremarkable. The patient is stable for discharge home and declined needing a medication for pain. Has questions and concerns were addressed. Close follow-up with the primary care physician recommended. Strict ER return precautions discussed. Departure Diagnosis: Primary Impression: Fall with no significant injury Condition: Stable Patient Instructions: Fall Prevention [facility] Usted se kumar hecho un examen mdico de control que le indica que no est en kenny condicin que requiera tratamiento urgente en el Departamento de Emergencia. Un estudio ms profundo y el tratamiento de polk condicin pueden esperar sin ningn riesgo hasta que usted sea atendida/o en el consultorio de polk mdico o kenny cl abhi. Es responsabilidad suya arreglar kenny sreekanth para el seguimiento del gamaliel. MANEJO DE CONDICIONES NO URGENTES EN EL FUTURO 1) Si usted tiene un mdico de atencin primaria: Usted debera llamar a polk mdico de atencin primaria antes de venir al departamento de emergencia. Despus de las horas de consultorio, polk doctor o polk asociado/a est disponible por telfono. El mdico o enfermero de khanh en el servicio telefnico puede asesorarle por gail medio para atender el problema, o gamaliel contrario se puede programar kenny sreekanth. 2) Si usted no tiene un mdico de atencin primaria: Llame al mdico o clnica de referencia que aparece abajo neela las horas de consultorio para hacer kenny sreekanth para que le vean. CLINICAS: [facility] [phone] [facility] [phone] [facility] [facility] [phone] [facility] [facility] [phone] [facility]. [place] [id number] [phone] [facility]. [phone] [address] Additional Instructions: No mas mejor en 2-3 mera, regresar. Mas peor en 24 horas, regresear rapidamente. Ir a doctor primario in 5-7 mera. Usar instrucciones cuando faina medicamento. TRACI IVY PA-C Nov 03, 2016 15:06
== END 2016-11-03 10:40 | disposition home or self-care (01) ==
LOC: FTE 08:25
DX: R51 Headache (principal); M54.2 Cervicalgia; H53.8 Other visual disturbances; I10 Essential (primary) hypertension; E11.9 Type 2 diabetes mellitus without complications; W18.2XXA Fall in (into) shower or empty bathtub, initial encounter; Y92.9 Unspecified place or not applicable; Z79.82 Long term (current) use of aspirin; Z79.4 Long term (current) use of insulin
CPT/HCPCS: 70450; 70486; 72125; 76536

== ENCOUNTER 2016-11-05 01:11 | Inpatient (IN) | payer MEDICARE, OTHER ==
[2016-11-05] VITALS (15 sets, daily range): BP systolic 140–172; BP diastolic 68–81; PULSE 70–82; RESP 16–19; Ht 167.6 cm; Wt 82.0 kg
[~2016-11-05] VITALS: Ht 167.6 cm; Wt 82.0 kg
[2016-11-05 02:27] LABS: ADD SCAN DIFF NO
[2016-11-05 02:28] LABS: BASOPHILS % 0.5 % (0.0-2.0); EOSINOPHILS # 0.3 10^3/ul (0.0-0.5); EOSINOPHILS % 3.8 % (0.0-7.0); HEMATOCRIT 31.7 % (42.0-52.0); HEMOGLOBIN 10.1 g/dl (14.0-18.0); LYMPHOCYTES # 1.5 10^3/ul (0.8-2.9); LYMPHOCYTES % 18.2 % (15.0-51.0); MEAN CORPUSCULAR HEMOGLOBIN 29.2 pg (29.0-33.0); MEAN CORPUSCULAR HGB CONC 31.9 g/dl (32.0-37.0); MEAN CORPUSCULAR VOLUME 91.6 fl (82.0-101.0); MONOCYTE # 0.9 10^3/ul (0.3-0.9); NEUTROPHIL # 5.5 10^3/ul (1.6-7.5); NEUTROPHILS % 66.1 % (39.0-77.0); PLATELET COUNT 147 10^3/UL (140-415); RED BLOOD COUNT 3.46 10^6/ul (4.70-6.10); RED CELL DISTRIBUTION WIDTH 14.7 % (11.5-14.5); WHITE BLOOD COUNT 8.3 10^3/ul (4.8-10.8)
[2016-11-05 02:44] LABS: INR 0.97; PROTIME 12.9 Sec (12.2-14.2)
[2016-11-05 02:45] LABS: PARTIAL THROMBOPLASTIN TIME 29.2 Sec (25.0-35.0)
[2016-11-05 03:00] LABS: ALANINE AMINOTRANSFERASE 37 IU/L (13-69); ALBUMIN 4.7 g/dl (3.3-4.9); ALBUMIN/GLOBULIN RATIO 1.67; ALKALINE PHOSPHATASE 123 IU/L (42-121); ANION GAP 23 (8-16); ASPARTATE AMINO TRANSFERASE 28 IU/L (15-46); BLOOD UREA NITROGEN 92 mg/dl (7-20); CALCIUM 8.4 mg/dl (8.4-10.2); CARBON DIOXIDE 23 mmol/L (21-31); CHLORIDE 102 mmol/L (97-110); CREATININE 11.88 mg/dl (0.61-1.24); GLUCOSE 205 mg/dl (70-220); SODIUM 141 mmol/L (135-144); TOTAL PROTEIN 7.5 g/dl (6.1-8.1)
[2016-11-05 03:11] LABS: B-TYPE NATRIURETIC PEPTIDE 7410 PG/ML (0-125)
[2016-11-05 03:18] LABS: TROPONIN-I < 0.012 ng/ml (0.00-0.12)
[2016-11-05 03:20] LABS: POTASSIUM 6.6 mmol/L (3.5-5.1)
--- NOTE | 2016-11-05 03:45 | ERA ---
ER Documentation Chief Complaint Date/Time DATE: 11/05/16 TIME: 03:42 Chief Complaint SOB and CP x2 days, non-productive cough. Hx dialysis MWF HPI 66-year-old male who comes in with complaints of shortness of breath and chest pain for 2 days. Patient is a Saturday dialysis patient. Missed his last dialysis appointment. No fevers no chills. No other current complaints. ROS All systems reviewed and are negative except as per history of present illness. Medications Home Meds Active Scripts Aspirin (Aspirin) 81 Mg Chew, 81 MG PO DAILY for 30 Days Prov:MADI RAYMOND 03/20/16 Hydralazine Hcl* (Hydralazine Hcl*) 50 Mg Tab, 50 MG PO TID, #90 TAB Prov:MILTON CARTER MD 11/08/15 Reported Medications Amlodipine Besylate* (Norvasc*) 5 Mg Tablet, 5 MG PO QHS, TAB 09/25/16 Ergocalciferol (Vitamin D2) (VITAMIN D2) 50,000 Unit Capsule, 33759 UNIT PO ONCE A MONTH, CAP 09/25/16 Ampicillin* (Ampicillin*) 500 Mg Cap, 500 MG PO QID, CAP 09/25/16 Furosemide* (Lasix*) 20 Mg Tablet, 20 MG PO DAILY, TAB 09/25/16 Amlodipine Besylate* (Amlodipine Besylate*) 10 Mg Tablet, 10 MG PO DAILY, #30 TAB 08/02/16 Insulin Glargine* (Lantus*) 100 Unit/Ml Soln, 30 UNIT SC QHS, #1 VIAL 08/02/16 Atorvastatin* (Atorvastatin*) 40 Mg Tablet, 40 MG PO DAILY 06/30/15 Calcium Acetate (Calcium Acetate) 667 Mg Tablet, 667 MG PO TID 05/31/13 Tamsulosin Hcl* (Tamsulosin Hcl*) 0.4 Mg Cap.er.24h, 0.4 MG PO DAILY 05/31/13 Allergies Allergies: Coded Allergies: No Known Allergy (Unverified , 09/25/16) PMhx/Soc History of Surgery: Yes (right shoulder) Anesthesia Reaction: No Hx Neurological Disorder: No Hx Respiratory Disorders: No Hx Cardiac Disorders: Yes (HTN, High cholesterol, DM) Hx Psychiatric Problems: No Hx Miscellaneous Medical Probl: No (RENAL FAILURE, DIALYSIS) Hx Alcohol Use: No Hx Substance Use: No Hx Tobacco Use: No Smoking Status: Never smoker Physical Exam Vitals Vital Signs Date Time Temp Pulse Resp B/P Pulse Ox O2 Delivery O2 Flow Rate FiO2 11/05/16 02:14 71 20 158/64 94 Room Air 11/05/16 01:21 98.2 94 18 174/72 94 Physical Exam Const: [] Head: Atraumatic Eyes: Normal Conjunctiva ENT: Normal External Ears, Nose and Mouth. Neck: Full range of motion..~ No meningismus. Resp: Clear to auscultation bilaterally Cardio: Regular rate and rhythm, no murmurs Abd: Soft, non tender, non distended. Normal bowel sounds Skin: No petechiae or rashes Back: No midline or flank tenderness Ext: No cyanosis, or edema Neur: Awake and alert Psych: Normal Mood and Affect Result Diagram: 11/05/1620911/05/16209 Results 24 hrs Laboratory Tests Test 11/05/16 02:10 White Blood Count 8.310^3/ul Red Blood Count 3.4610^6/ul Hemoglobin 10.1g/dl Hematocrit 31.7% Mean Corpuscular Volume 91.6fl Mean Corpuscular Hemoglobin 29.2pg Mean Corpuscular Hemoglobin Concent 31.9g/dl Red Cell Distribution Width 14.7% Platelet Count 24223^3/UL Mean Platelet Volume 12.0fl Neutrophils % 66.1% Lymphocytes % 18.2% Monocytes % 11.0% Eosinophils % 3.8% Basophils % 0.5% Nucleated Red Blood Cells % 0.0/100WBC Neutrophils # 5.510^3/ul Lymphocytes # 1.510^3/ul Monocytes # 0.910^3/ul Eosinophils # 0.310^3/ul Basophils # 0.010^3/ul Nucleated Red Blood Cells # 0.010^3/ul Prothrombin Time 12.9Sec Prothrombin Time Ratio 1.0 INR International Normalized Ratio 0.97 Activated Partial Thromboplast Time 29.2Sec Sodium Level 141mmol/L Potassium Level 6.6mmol/L Chloride Level 102mmol/L Carbon Dioxide Level 23mmol/L Anion Gap 23 Blood Urea Nitrogen 92mg/dl Creatinine 11.88mg/dl Glucose Level 205mg/dl Calcium Level 8.4mg/dl Total Bilirubin 0.0mg/dl Direct Bilirubin 0.00mg/dl Indirect Bilirubin 0.0mg/dl Aspartate Amino Transf (AST/SGOT) 28IU/L Alanine Aminotransferase (ALT/SGPT) 37IU/L Alkaline Phosphatase 123IU/L Troponin I < 0.012ng/ml B-Type Natriuretic Peptide 7410PG/ML Total Protein 7.5g/dl Albumin 4.7g/dl Globulin 2.80g/dl Albumin/Globulin Ratio 1.67 Procedures/MDM EKG: Rate/Rhythm: [Normal Sinus Rhythm] QRS, ST, T-waves: [No changes consistent w/ acute ischemia] Impression: [No evidence of ischemia or arrhythmia] Chest X-ray 1V Interpreted by me: Soft Tissue: No acute abnormalities Bones: No acute abnormalities Mediastinum/Cardiac Silhouette/Lungs: Increased interstitial fluid markings. Impression: CHF Patient's heart failure symptoms is concerning for acute decompensation and will require inpatient workup and monitoring. Further w/u for ischemia, arrhythmia, PE or dissection will be deferred to the inpatient team. Accepting Care Team: Current data and ongoing care discussed. Time: 3 AM Primary Provider: Hospitalist Consulting: [XOXOXO] Outstanding Data: none Departure Diagnosis: Primary Impression: Hyperkalemia Condition: Serious TRACI DE LA ROSA Nov 05, 2016 03:45
--- NOTE | 2016-11-05 04:45 | RADRPT ---
PROCEDURE: CHEST - 1 VIEW CLINICAL INDICATION: 66-year-old male with shortness of breath. TECHNIQUE: A single frontal AP upright portable view of the chest was performed. The images were reviewed on a PACS workstation. COMPARISON: Chest x-ray September 18, 2016. FINDINGS: The cardiomediastinal silhouette is enlarged. There is a shallow inspiration. There is moderate pu lmonary vascular congestion/volume overload. There is bilateral lower lung zone atelectasis. A sup erimposed infiltrate cannot be excluded. There is no evidence for pneumothorax. The osseous structur es are intact. IMPRESSION: 1. Cardiomegaly. 2. Pulmonary vascular congestion/volume overload. 3. Shallow inspiration. 4. Bilateral lower lung zone atelectasis. A superimposed infiltrate cannot be excluded. Clinical correlation is necessary. .Ramos Cast MD, MD Date Time Electronically viewed and signed by .Ramos Cast MD, on 11/05/2016 04:44 .M/
[2016-11-05] MEDS ORDERED: LORAZEPAM 0.5 MG TAB PO PRN (06:30)
[2016-11-05] MEDS ORDERED: ALBUTEROL/IPRATROPIUM (NEB) 3 ML AMP HHN PRN (06:30)
[2016-11-05] MEDS ORDERED: FUROSEMIDE 40 MG INJ IV ONE (06:30)
[2016-11-05] MEDS ORDERED: morphine 2 MG INJ IV PRN (06:30)
[2016-11-05] MEDS ORDERED: NA POLYST SULFON 15 GM/60 ML BTL PO ONE ×2 (06:30→07:00)
[2016-11-05] MEDS ORDERED: NACL 0.9% 3 ML SYG IV SCH (06:30)
[2016-11-05] MEDS ORDERED: ACETAMINOPHEN 325 MG TAB PO PRN (06:30)
[2016-11-05] MEDS ORDERED: GLUCOSE GEL 15 GRAM TUBE BUCCAL PRN (07:00)
[2016-11-05] MEDS ORDERED: DEXTROSE 50% 50 ML SYRINGE IV PRN ×2 (07:00)
[2016-11-05] MEDS ORDERED: GLUCAGON 1 MG INJ IM PRN (07:00)
[2016-11-05] MEDS ORDERED: GLUCOSE GEL 15 GRAM TUBE PO PRN ×2 (07:00)
[2016-11-05] MEDS: INSULIN ASPART [NOVOLOG] 3 ML PEN SC SCH ×4 (08:00→21:50)
--- NOTE | 2016-11-05 08:10 | HP ---
DATE OF ADMISSION: 11/05/2016 CHIEF COMPLAINT: Shortness of breath. The patient is a 66-year-old male with a history of hypertension, dyslipidemia, diabetes, end-stage renal disease, on dialysis, left upper extremity steal syndrome, status post brachiocephalic fistula banding and ligation of cephalic vein tributary, and ischemic second right toe, who presented to [facility] emergency department complaining of shortness of breath. The patient gets dialysis Saturday, , Saturday, but he missed his last dialysis on Saturday and since then has been experiencing shortnes s of breath. Denied chest pain, fever, chills, nausea, vomiting. When he presented to the ER, blood pressure was 134/72, heart rate 94, respiratory rate 18, temperat ure 98.2, oxygen saturation 94% on room air. Laboratory value shows a potassium of 6.6, BUN 92, cre atinine almost 12, hemoglobin 10. BNP 7400. Chest x-ray shows cardiomegaly, pulmonary vascular congestion/volume overload, and bilateral lower l shay zone atelectasis with superimposed infiltrate not being able to be excluded REVIEW OF SYSTEMS: A 12-point review of systems performed, negative except as in the HPI. PAST MEDICAL HISTORY: As per HPI. PAST SURGICAL HISTORY: As per HPI. SOCIAL HISTORY: Denied a history alcohol or illicit drug use. ALLERGIES: NO KNOWN DRUG ALLERGIES. HOME MEDICATIONS: 1. Amlodipine. 2. Tamsulosin. 3. Lipitor. 4. Hydralazine. 5. Aspirin. 6. Calcium. 7. Lasix. 5. Insulin. 6. Vitamin D. PHYSICAL EXAMINATION: VITAL SIGNS: Blood pressure 150/64, heart rate 70, respiratory rate 16, temperature earlier was 98. 2, oxygen saturation 100% on 2 liter nasal cannula. GENERAL: The patient is lying in bed with mild shortness of breath. He is, however, able to speak in full sentences and answering questions appropriately. HEENT: No obvious head deformity. Pupils are reactive to light. Extraocular muscles intact. CARDIOVASCULAR: Regular rate and rhythm. No extra sounds. LUNGS: Decreased breath sounds at the bases with scattered crackles. Abdomen is soft, nontender, n ondistended. Positive bowel sounds. EXTREMITIES: There is some edema in bilateral lower extremities. The right second toe is amputated . LABORATORY: Pertinent positive results are as mentioned in the HPI. IMAGING: Chest x-ray with results as mentioned in the HPI. IMPRESSION: 1. Shortness of breath/volume overload state, secondary to missed dialysis. 2. End-stage renal disease on dialysis, on Saturday, Saturday and Saturday (with missed dialysis on ). 3. Hypertension. 4. History of diabetes. 5. History of dyslipidemia. 6. History of left upper extremity steal syndrome, status post brachiocephalic fistula banding and ligation of cephalic vein tributary on 09/25/2016. 7. Hyperkalemia. 8. Anemia of chronic disease. PLAN: The patient missed his last dialysis on Saturday, and as such he needs to be dialyzed today. W justin will place a nephrology consult. The patient takes Lasix at home, but we will give him IV Lasix u ntil he gets his dialysis. We will give Kayexalate and insulin for his hyperkalemia. His blood pre ssure was better controlled since he initially came. We will continue his home antihypertensive med ications as needed. He will be continued on insulin for his diabetes. We will also continue the re st of his home medications. He will receive breathing treatments as needed for shortness of breath. Further workup and management per clinical course. Dictated By: TRACI HERR/IMANI Conf#: [id number] DID#: [id number]
[2016-11-05] MEDS ORDERED: TAMSULOSIN (SR) 0.4 MG CAP PO SCH (09:00)
[2016-11-05] MEDS: ASPIRIN 81 MG TAB PO SCH (09:33)
[2016-11-05] MEDS: CALCIUM ACETATE 667 MG CAP PO SCH ×3 (09:33→21:35)
[2016-11-05] MEDS: FUROSEMIDE 20 MG TAB PO SCH (09:34)
[2016-11-05] MEDS: ATORVASTATIN 40 MG TAB PO SCH (09:34)
[2016-11-05] MEDS: HEPARIN 5,000 UNIT/0.5 ML VIAL SC SCH ×2 (09:35→21:45)
--- NOTE | 2016-11-05 16:56 | CONS ---
Date/Time of Note Date/Time of Note DATE: 11/05/16 TIME: 16:54 Assessment/Plan Assessment/Plan Chief Complaint/Hosp Course 157181 renal A/P AMS ESRD HTN DM HYPERKALEMIA PUL EDEMA PLAN HD CT BRAIN Problems: Consultation Date/Type/Reason Admit Date/Time Nov 05, 2016 at 06:40 Initial Consult Date Type of Consultation: renal 24 HR Interval Summary Constitutional: disoriented Exam/Review of Systems Vital Signs Vitals Vital Signs Date Time Temp Pulse Resp B/P Pulse Ox O2 Delivery O2 Flow Rate FiO2 11/05/16 16:16 77 11/05/16 15:39 98.2 18 158/72 98 11/05/16 11:40 Nasal Cannula 11/05/16 11:01 2.0 Exam Neck: supple Respiratory: diminished breath sounds Cardiovascular: regular rate and rhythm Gastrointestinal: soft Musculoskeletal: nl extremities to inspection Extremities: normal pulses Neurological: confused Results Result Diagram: 11/05/16 0210 11/05/16 0210 Results 24 hrs Laboratory Tests Test 11/05/16 02:10 11/05/16 09:13 11/05/16 11:55 White Blood Count 8.3 # Red Blood Count 3.46 L Hemoglobin 10.1 #L Hematocrit 31.7 #L Mean Corpuscular Volume 91.6 Mean Corpuscular Hemoglobin 29.2 Mean Corpuscular Hemoglobin Concent 31.9 L Red Cell Distribution Width 14.7 H Platelet Count 147 # Mean Platelet Volume 12.0 H Neutrophils % 66.1 Lymphocytes % 18.2 Monocytes % 11.0 Eosinophils % 3.8 Basophils % 0.5 Nucleated Red Blood Cells % 0.0 Neutrophils # 5.5 Lymphocytes # 1.5 Monocytes # 0.9 Eosinophils # 0.3 Basophils # 0.0 Nucleated Red Blood Cells # 0.0 Prothrombin Time 12.9 Prothrombin Time Ratio 1.0 INR International Normalized Ratio 0.97 Activated Partial Thromboplast Time 29.2 Sodium Level 141 Potassium Level 6.6 *H Chloride Level 102 Carbon Dioxide Level 23 Anion Gap 23 H Blood Urea Nitrogen 92 H Creatinine 11.88 H Glucose Level 205 Calcium Level 8.4 Total Bilirubin 0.0 L Direct Bilirubin 0.00 Indirect Bilirubin 0.0 Aspartate Amino Transf (AST/SGOT) 28 Alanine Aminotransferase (ALT/SGPT) 37 Alkaline Phosphatase 123 H Troponin I < 0.012 B-Type Natriuretic Peptide 7410 H Total Protein 7.5 Albumin 4.7 Globulin 2.80 Albumin/Globulin Ratio 1.67 Bedside Glucose 92 117 Medications Medications Current Medications Lorazepam (Ativan) 0.5 mg Q8H PRN PO ANXIETY; Start 11/05/16 at 06:30 Acetaminophen (Tylenol Tab) 650 mg Q6H PRN PO PAIN LEVEL 1-3 OR FEVER; Start at 06:30 Morphine Sulfate (morphine) 2 mg Q4H PRN IV PAIN LEVEL 7-10; Start 11/05/16 at 06:30 Heparin Sodium (Porcine) (Heparin (5000 Units/0.5 ml)) 5,000 unit Q12 SC Last administered on 11/05/16 09:35; Admin Dose 5,000 UNIT; Start 11/05/16 at 09:00 Amlodipine Besylate (Norvasc) 10 mg DAILY PO ; Start 11/05/16 at 09:00 Amlodipine Besylate (Norvasc) 5 mg QHS PO ; Start 11/05/16 at 21:00 Aspirin (Aspirin) 81 mg DAILY PO Last administered on 11/05/16 09:33; Admin Dose 81 MG; Start 11/05/16 at 09:00 Atorvastatin Calcium (Lipitor) 40 mg DAILY PO Last administered on 11/05/16 09 :34; Admin Dose 40 MG; Start 11/05/16 at 09:00 Calcium Acetate (Phoslo) 667 mg TID PO Last administered on 11/05/16 12:26; Admin Dose 667 MG; Start 11/05/16 at 09:00 Furosemide (Lasix) 20 mg DAILY@06 PO Last administered on 11/05/16 09:34; Admin Dose 20 MG; Start 11/05/16 at 09:00 Hydralazine HCl (Apresoline) 50 mg TID PO Last administered on 11/05/16 09:33 ; Admin Dose 50 MG; Start 11/05/16 at 09:00 Insulin Glargine (Lantus) 30 unit QHS SC ; Start 11/05/16 at 21:00 Albuterol/ Ipratropium (Duoneb) 3 ml Q4H PRN HHN SBO; Start 11/05/16 at 06:30 Diagnostic Test (Pha) (Accu-Chek) 1 ea 02 XX ; Start 11/06/16 at 02:00 Miscellaneous Information 1 ea NOTE XX ; Start 11/05/16 at 07:00 Glucose (Glutose) 15 gm Q15M PRN PO DECREASED GLUCOSE; Start 11/05/16 at 07:00 Glucose (Glutose) 22.5 gm Q15M PRN PO DECREASED GLUCOSE; Start 11/05/16 at 07: 00 Dextrose (D50w Syringe) 25 ml Q15M PRN IV DECREASED GLUCOSE; Start 11/05/16 at 07:00 Dextrose (D50w Syringe) 50 ml Q15M PRN IV DECREASED GLUCOSE; Start 11/05/16 at 07:00 Glucagon (Glucagen) 1 mg Q15M PRN IM DECREASED GLUCOSE; Start 11/05/16 at 07:00 Glucose (Glutose) 15 gm Q15M PRN BUCCAL DECREASED GLUCOSE; Start 11/05/16 at 07 :00 Tamsulosin HCl (Flomax) 0.4 mg HS PO ; Start 11/05/16 at 21:00 EDILBERTO RODRIGUEZ MD Nov 05, 2016 16:56
[2016-11-05] MEDS ORDERED: LORAZEPAM 2 MG INJ IV ONE (17:30)
[2016-11-05] MEDS: AMLODIPINE 10 MG TAB PO SCH (18:05)
[2016-11-05] MEDS ORDERED: INSULIN GLARGINE [LANtus] 3 ML PEN SC SCH (21:00)
[2016-11-05] MEDS: TAMSULOSIN (SR) 0.4 MG CAP PO SCH (21:35)
[2016-11-05] MEDS: AMLODIPINE 5 MG TAB PO SCH (21:36)
[2016-11-06] VITALS (20 sets, daily range): BP systolic 141–168; BP diastolic 55–98; PULSE 58–70; RESP 17–19
[2016-11-06] MEDS: ACCUCHECK AT 2AM (Patients on SS coverage) XX SCH (02:00)
[2016-11-06] MEDS: FUROSEMIDE 20 MG TAB PO SCH (06:17)
--- NOTE | 2016-11-06 06:58 | CONS ---
DATE OF ADMISSION: 11/05/2016 DATE OF CONSULTATION: TYPE OF CONSULTATION: Nephrology. Thank you, Dr. Gallego, for kindly asking me to see this patient in consultation. HISTORY OF PRESENT ILLNESS: The patient is well known to me with history of ESRD, goes to dialysis center . The patient previously was discharged with diagnosis of fluid overload. The patient has ESRD, anemia, hypertension, dyslipidemia, history of PVD. The patient also has history of diabetes mellitus. The patient now presents to this hospital with shortness of breath. Chest x-ray shows cardiomegaly, pulmonary vascular congestion, volume overload, shallow inspiration, bilateral lower lung zone atelectasis. The patient in the ER was seen by Dr. Jr Lal, was complaining of shortness of breath and chest pain as per ER note. Blood pressure 150/84 in the ER and pulse 71. Potassium 6.6, hematocrit 31.7. The patient's EKG shows sinus rhythm, nonspecific ST-T changes. The patient at the time of the dictation is little bit confused, seems like keeps folding and folding his bed sheet and has in the room. Notable to have normal conversation _ he does. The patient has blood pressure 150/72. PAST MEDICAL HISTORY: ESRD, hypertension, diabetes mellitus, anemia, atherosclerotic heart disease, dyslipidemia, history of multiple AV valve revisions, thrombectomy in the past. ALLERGY HISTORY: NEGATIVE. FAMILY HISTORY: Negative. SOCIAL HISTORY: Negative at this point. MEDICATION HISTORY: The patient is on: 1. Amlodipine. 2. Ampicillin at home. 3. Aspirin. 4. Lipitor. 5. Calcium acetate. 6. Ergocalciferol. 7. Lasix. 8. Hydralazine. 9. Insulin. 10. Flomax. REVIEW OF SYSTEMS: Limited since patient is not able to give detailed history. PHYSICAL EXAMINATION: GENERAL: The patient is sitting on the edge of the bed ____ at times, just keeps playing with his bed sheet. Vital signs are stable. HEENT: Head is atraumatic, normocephalic. The patient has a small bump on the forehead, possibly due to a small hematoma. VITAL SIGNS: The patient has pulse 77, blood pressure 150/72. NECK: Supple. No JVD. LUNGS: Clear anteriorly with basilar rales. CARDIOVASCULAR: S1, S2 are normal. Systolic murmur noted. ABDOMEN: Soft. Bowel sounds plus. No palpable mass. EXTREMITIES: No cyanosis, clubbing. Trace edema. CENTRAL NERVOUS SYSTEM: The patient is awake, alert. No deficit. LABORATORY DATA: WBC 31.7, hematocrit of , potassium 6.6. IMPRESSION: 1. The patient has fluid overload. 2. Hyperkalemia. 3. Pulmonary edema. 4. Ischemic heart disease myocardial infarction. 5. Hypertension. 6. End-stage renal disease. 7. Diabetes mellitus. 8. Anemia. 9. Atherosclerotic heart disease. 10. Forehead possible hematoma, rule out fall. PLAN: Give this patient renal diet, hemodialysis, check potassium post dialysis. The patient should benefit from CT of the brain, which has been ordered. Hemodialysis will be done. Orders were done. Thank you, Dr. Gallego, for kindly asking me to see this patient in nephrology consultation. Dictated By: EDILBERTO RODRIGUEZ MD BS/IMANI Conf#: [id number] DID#: [id number] MTDD
[2016-11-06 07:05] LABS: ADD SCAN DIFF NO
[2016-11-06 07:11] LABS: BASOPHILS % 0.3 % (0.0-2.0); EOSINOPHILS # 0.1 10^3/ul (0.0-0.5); EOSINOPHILS % 1.5 % (0.0-7.0); HEMATOCRIT 31.8 % (42.0-52.0); HEMOGLOBIN 10.4 g/dl (14.0-18.0); LYMPHOCYTES # 1.8 10^3/ul (0.8-2.9); LYMPHOCYTES % 27.2 % (15.0-51.0); MEAN CORPUSCULAR HEMOGLOBIN 29.2 pg (29.0-33.0); MEAN CORPUSCULAR HGB CONC 32.7 g/dl (32.0-37.0); MEAN CORPUSCULAR VOLUME 89.3 fl (82.0-101.0); MONOCYTE # 0.8 10^3/ul (0.3-0.9); MONOCYTES % 11.2 % (0.0-11.0); NEUTROPHILS % 59.5 % (39.0-77.0); PLATELET COUNT 129 10^3/UL (140-415); RED BLOOD COUNT 3.56 10^6/ul (4.70-6.10); RED CELL DISTRIBUTION WIDTH 14.2 % (11.5-14.5); WHITE BLOOD COUNT 6.7 10^3/ul (4.8-10.8)
[2016-11-06 07:53] LABS: ALBUMIN 4.3 g/dl (3.3-4.9); ALBUMIN/GLOBULIN RATIO 1.65; BILIRUBIN,INDIRECT 0.3 mg/dl (0-1.1); BILIRUBIN,TOTAL 0.3 mg/dl (0.2-1.3); CALCIUM 8.8 mg/dl (8.4-10.2); POTASSIUM 4.5 mmol/L (3.5-5.1); TOTAL PROTEIN 6.9 g/dl (6.1-8.1)
[2016-11-06] MEDS: INSULIN ASPART [NOVOLOG] 3 ML PEN SC SCH ×4 (07:55→21:14)
[2016-11-06] MEDS: ATORVASTATIN 40 MG TAB PO SCH (09:00)
[2016-11-06] MEDS: AMLODIPINE 10 MG TAB PO SCH (09:00)
[2016-11-06] MEDS: CALCIUM ACETATE 667 MG CAP PO SCH ×3 (09:09→21:17)
[2016-11-06] MEDS: ASPIRIN 81 MG TAB PO SCH (09:09)
[2016-11-06] MEDS: HEPARIN 5,000 UNIT/0.5 ML VIAL SC SCH ×2 (09:17→21:05)
--- NOTE | 2016-11-06 12:47 | PN ---
Date/Time of Note Date/Time of Note DATE: 11/06/16 TIME: 12:42 Assessment/Plan VTE Prophylaxis VTE Prophylaxis Intervention: SCD's Lines/Catheters IV Catheter Type (from Nrs): Peripheral IV Urinary Cath still in place: No Assessment/Plan Assessment/Plan 1. Confusion and lethargy 2. ESRD with missed dialysis 3. Hyperkalemia 4. Recurrent falls 5. Shortness of breath/volume overload state, secondary to missed dialysis: improved 6. Hypertension. 7. History of diabetes. 8. History of dyslipidemia. 9. History of left upper extremity steal syndrome, status post brachiocephalic fistula banding and ligation of cephalic vein tributary on 09/25. 10. Hyperkalemia. 11. Anemia of chronic disease. PLAN: * f/u CT brain * PT eval * repeat CXR post HD to eval for infiltrate * supportive care * HD today Subjective 24 Hr Interval Summary Free Text/Dictation patient sleeping comfortably nursing reports no further confusion yet to ambulate Exam/Review of Systems Vital Signs Vitals Vital Signs Date Time Temp Pulse Resp B/P Pulse Ox O2 Delivery O2 Flow Rate FiO2 11/06/16 12:30 67 11/06/16 11:31 18 11/06/16 11:06 98.8 151/66 95 11/05/16 20:00 Nasal Cannula 2.0 Intake and Output 11/05/16 11/05/16 11/06/16 15:00 23:00 07:00 Intake Total 500 ml Output Total 5302 ml Balance -4802 ml Exam GENERAL: no distress HEENT: No obvious head deformity. Pupils are reactive to light. Extraocular muscles intact. CARDIOVASCULAR: Regular rate and rhythm. No extra sounds. LUNGS: Decreased breath sounds at the bases Abdomen is soft, nontender, nondistended. Positive bowel sounds. EXTREMITIES: No edema. The right second toe is amputated. Results Result Diagram: 11/06/16 0610 11/06/16 0620 Results 24 hrs Laboratory Tests Test 11/05/16 17:09 11/05/16 18:07 11/05/16 18:40 11/05/16 21:05 Bedside Glucose 171 228 H 188 Potassium Level 4.3 # Test 11/06/16 02:09 11/06/16 02:23 11/06/16 02:42 11/06/16 03:16 Bedside Glucose 47 *L 51 L 121 120 Test 11/06/16 06:10 11/06/16 06:20 11/06/16 08:00 11/06/16 08:30 White Blood Count 6.7 Red Blood Count 3.56 L Hemoglobin 10.4 L Hematocrit 31.8 L Mean Corpuscular Volume 89.3 Mean Corpuscular Hemoglobin 29.2 Mean Corpuscular Hemoglobin Concent 32.7 Red Cell Distribution Width 14.2 Platelet Count 129 L Mean Platelet Volume 12.0 H Neutrophils % 59.5 Lymphocytes % 27.2 Monocytes % 11.2 H Eosinophils % 1.5 Basophils % 0.3 Nucleated Red Blood Cells % 0.0 Neutrophils # 4.0 Lymphocytes # 1.8 Monocytes # 0.8 Eosinophils # 0.1 Basophils # 0.0 Nucleated Red Blood Cells # 0.0 Sodium Level 136 Potassium Level 4.5 Chloride Level 94 L Carbon Dioxide Level 29 Anion Gap 18 H Blood Urea Nitrogen 55 #H Creatinine 8.00 #H Glucose Level 79 # Calcium Level 8.8 Total Bilirubin 0.3 Direct Bilirubin 0.00 Indirect Bilirubin 0.3 Aspartate Amino Transf (AST/SGOT) 24 Alanine Aminotransferase (ALT/SGPT) 32 Alkaline Phosphatase 76 Total Protein 6.9 Albumin 4.3 Globulin 2.60 Albumin/Globulin Ratio 1.65 Bedside Glucose 67 L 93 Test 11/06/16 09:05 11/06/16 11:48 Bedside Glucose 119 107 Medications Medications Current Medications Lorazepam (Ativan) 0.5 mg Q8H PRN PO ANXIETY; Start 11/05/16 at 06:30 Acetaminophen (Tylenol Tab) 650 mg Q6H PRN PO PAIN LEVEL 1-3 OR FEVER; Start at 06:30 Morphine Sulfate (morphine) 2 mg Q4H PRN IV PAIN LEVEL 7-10; Start 11/05/16 at 06:30 Heparin Sodium (Porcine) (Heparin (5000 Units/0.5 ml)) 5,000 unit Q12 SC Last administered on 11/06/16 09:17; Admin Dose 5,000 UNIT; Start 11/05/16 at 09:00 Amlodipine Besylate (Norvasc) 10 mg DAILY PO Last administered on 11/05/16 18: 05; Admin Dose 10 MG; Start 11/05/16 at 09:00 Amlodipine Besylate (Norvasc) 5 mg QHS PO Last administered on 11/05/16 21:36 ; Admin Dose 5 MG; Start 11/05/16 at 21:00 Aspirin (Aspirin) 81 mg DAILY PO Last administered on 11/06/16 09:09; Admin Dose 81 MG; Start 11/05/16 at 09:00 Calcium Acetate (Phoslo) 667 mg TID PO Last administered on 11/06/16 09:09; Admin Dose 667 MG; Start 11/05/16 at 09:00 Furosemide (Lasix) 20 mg DAILY@06 PO Last administered on 11/06/16 06:17; Admin Dose 20 MG; Start 11/05/16 at 09:00 Hydralazine HCl (Apresoline) 50 mg TID PO Last administered on 11/05/16 21:35 ; Admin Dose 50 MG; Start 11/05/16 at 09:00 Insulin Glargine (Lantus) 30 unit QHS SC Last administered on 11/05/16 21:47; Admin Dose 30 UNIT; Start 11/05/16 at 21:00 Albuterol/ Ipratropium (Duoneb) 3 ml Q4H PRN HHN SBO; Start 11/05/16 at 06:30 Diagnostic Test (Pha) (Accu-Chek) 1 ea 02 XX ; Start 11/06/16 at 02:00 Miscellaneous Information 1 ea NOTE XX ; Start 11/05/16 at 07:00 Glucose (Glutose) 15 gm Q15M PRN PO DECREASED GLUCOSE Last administered on 11/06 08:07; Admin Dose 15 GM; Start 11/05/16 at 07:00 Glucose (Glutose) 22.5 gm Q15M PRN PO DECREASED GLUCOSE; Start 11/05/16 at 07: 00 Dextrose (D50w Syringe) 25 ml Q15M PRN IV DECREASED GLUCOSE; Start 11/05/16 at 07:00 Dextrose (D50w Syringe) 50 ml Q15M PRN IV DECREASED GLUCOSE; Start 11/05/16 at 07:00 Glucagon (Glucagen) 1 mg Q15M PRN IM DECREASED GLUCOSE; Start 11/05/16 at 07:00 Glucose (Glutose) 15 gm Q15M PRN BUCCAL DECREASED GLUCOSE; Start 11/05/16 at 07 :00 Tamsulosin HCl (Flomax) 0.4 mg HS PO Last administered on 11/05/16t 21:35; Admin Dose 0.4 MG; Start 11/05/16 at 21:00 Atorvastatin Calcium (Lipitor) 40 mg QHS PO ; Start 11/06/16 at 21:00 Procedures Procedures PROCEDURE: CHEST - 1 VIEW CLINICAL INDICATION: 66-year-old male with shortness of breath. TECHNIQUE: A single frontal AP upright portable view of the chest was performed. The images were reviewed on a PACS workstation. COMPARISON: Chest x-ray September 18, 2016. FINDINGS: The cardiomediastinal silhouette is enlarged. There is a shallow inspiration. There is moderate pulmonary vascular congestion/volume overload. There is bilateral lower lung zone atelectasis. A superimposed infiltrate cannot be excluded. There is no evidence for pneumothorax. The osseous structures are intact. IMPRESSION: 1. Cardiomegaly. 2. Pulmonary vascular congestion/volume overload. 3. Shallow inspiration. 4. Bilateral lower lung zone atelectasis. A superimposed infiltrate cannot be excluded. Clinical correlation is necessary. .Ramos Cast MD, MD Date Time Electronically viewed and signed by .Ramos Cast MD, on 11/05/2016 04:44 .M/ CC: TRACI DE LA ROSA BOLATITO M. Nov 06, 2016 12:47
[2016-11-06] MEDS: TAMSULOSIN (SR) 0.4 MG CAP PO SCH (20:57)
[2016-11-06] MEDS ORDERED: ATORVASTATIN 40 MG TAB PO SCH (21:00)
[2016-11-06] MEDS ORDERED: INSULIN GLARGINE [LANtus] 3 ML PEN SC SCH (21:00)
[2016-11-06] MEDS: AMLODIPINE 5 MG TAB PO SCH (21:16)
--- NOTE | 2016-11-06 22:00 | RADRPT ---
PROCEDURE: XR Chest. CLINICAL INDICATION: Cough TECHNIQUE: Single AP portable chest COMPARISON: 09/18/2016 Chest x-ray FINDINGS: The cardiomediastinal silhouette is within normal limits of size. Atherosclerotic calcification of t he aorta. The lungs are clear without pleural effusion or focal consolidation. No pneumothorax. The osseous structures and soft tissues are unremarkable. IMPRESSION: 1. No evidence for active cardiopulmonary disease. RPTAT:AAJJ Yuan Henry Physician Date Time Electronically viewed and signed by Yuan Henry Physician on 11/06/2016 21:59 ELENA/
--- NOTE | 2016-11-06 22:03 | RADRPT ---
PROCEDURE: CT Brain without contrast. CLINICAL INDICATION: Altered mental status. TECHNIQUE: A multiplanar CT of the brain was performed on a CT scanner utilizing axial imaging fro m the skull base through the vertex without IV contrast. The CTDIvol is 42.43 mGy and the DLP is 72 0.23 mGycm. One or more of the following dose reduction techniques were utilized: Automated exposu re control, adjustment of the mA and/or kV according to patient size, use of iterative reconstructio n technique. COMPARISON: 11/03/2016 CT brain. FINDINGS: No evidence of intracranial hemorrhage or abnormal extra-axial fluid collection. The brain parenchyma is normal attenuation morphology with preservation of feldman white differentiatio n and age appropriate size of the ventricles and subarachnoid spaces. Nonspecific punctate calcifica tion in the left middle cerebellar peduncle. This may reflect sequelae of chronic neurocysticercosi s or vascular calcification. The basal cisterns, posterior fossa contents, brainstem, craniocervical junction, orbits, pituitary axis, paranasal sinuses, mastoid air cells, and calvarium are unremarkable. Left frontal scalp soft tissue swelling. IMPRESSION: 1. No intracranial hemorrhage or acute intracranial abnormality. 2. Left frontal scalp soft tissue swelling RPTAT:AAJJ Physician Arden Date Time Electronically viewed and signed by Physician Arden on 11/06/2016 22:02 ELENA/
[2016-11-07] VITALS (13 sets, daily range): BP systolic 139–175; BP diastolic 64–75; PULSE 59–72; RESP 16–19
--- NOTE | 2016-11-07 00:20 | CONS ---
Date/Time of Note Date/Time of Note DATE: 11/07/16 TIME: 00:19 Assessment/Plan Assessment/Plan Chief Complaint/Hosp Course IMPRESSION: 1. The patient has fluid overload. 2. Hyperkalemia. 3. Pulmonary edema. 4. Ischemic heart disease myocardial infarction. 5. Hypertension. 6. End-stage renal disease. 7. Diabetes mellitus. 8. Anemia. 9. Atherosclerotic heart disease. 10. Forehead possible hematoma, rule out fall. plan hd Problems: Consultation Date/Type/Reason Admit Date/Time Nov 05, 2016 at 06:40 Type of Consultation: renal 24 HR Interval Summary Constitutional: no complaints, other (ams better) Exam/Review of Systems Vital Signs Vitals Vital Signs Date Time Temp Pulse Resp B/P Pulse Ox O2 Delivery O2 Flow Rate FiO2 11/07/16 00:11 59 11/06/16 23:44 97.7 18 159/55 99 11/05/16 20:00 Nasal Cannula 2.0 Intake and Output 11/06/16 11/06/16 11/07/16 15:00 23:00 07:00 Intake Total 200 ml 320 ml Output Total 2000 ml Balance -1800 ml 320 ml Exam Respiratory: clear to auscultation Cardiovascular: regular rate and rhythm Gastrointestinal: soft Musculoskeletal: nl extremities to inspection Extremities: normal pulses Results Result Diagram: 11/06/16 0610 11/06/16 0620 Results 24 hrs Laboratory Tests Test 11/06/16 02:09 11/06/16 02:23 11/06/16 02:42 11/06/16 03:16 Bedside Glucose 47 *L 51 L 121 120 Test 11/06/16 06:10 11/06/16 06:20 11/06/16 08:00 11/06/16 08:30 White Blood Count 6.7 Red Blood Count 3.56 L Hemoglobin 10.4 L Hematocrit 31.8 L Mean Corpuscular Volume 89.3 Mean Corpuscular Hemoglobin 29.2 Mean Corpuscular Hemoglobin Concent 32.7 Red Cell Distribution Width 14.2 Platelet Count 129 L Mean Platelet Volume 12.0 H Neutrophils % 59.5 Lymphocytes % 27.2 Monocytes % 11.2 H Eosinophils % 1.5 Basophils % 0.3 Nucleated Red Blood Cells % 0.0 Neutrophils # 4.0 Lymphocytes # 1.8 Monocytes # 0.8 Eosinophils # 0.1 Basophils # 0.0 Nucleated Red Blood Cells # 0.0 Sodium Level 136 Potassium Level 4.5 Chloride Level 94 L Carbon Dioxide Level 29 Anion Gap 18 H Blood Urea Nitrogen 55 #H Creatinine 8.00 #H Glucose Level 79 # Calcium Level 8.8 Total Bilirubin 0.3 Direct Bilirubin 0.00 Indirect Bilirubin 0.3 Aspartate Amino Transf (AST/SGOT) 24 Alanine Aminotransferase (ALT/SGPT) 32 Alkaline Phosphatase 76 Total Protein 6.9 Albumin 4.3 Globulin 2.60 Albumin/Globulin Ratio 1.65 Bedside Glucose 67 L 93 Test 11/06/16 09:05 11/06/16 11:48 11/06/16 17:02 11/06/16 20:54 Bedside Glucose 119 107 175 288 H Medications Medications Current Medications Lorazepam (Ativan) 0.5 mg Q8H PRN PO ANXIETY; Start 11/05/16 at 06:30 Acetaminophen (Tylenol Tab) 650 mg Q6H PRN PO PAIN LEVEL 1-3 OR FEVER; Start at 06:30 Morphine Sulfate (morphine) 2 mg Q4H PRN IV PAIN LEVEL 7-10; Start 11/05/16 at 06:30 Heparin Sodium (Porcine) (Heparin (5000 Units/0.5 ml)) 5,000 unit Q12 SC Last administered on 11/06/16 21:05; Admin Dose 5,000 UNIT; Start 11/05/16 at 09:00 Amlodipine Besylate (Norvasc) 10 mg DAILY PO Last administered on 11/05/16 18: 05; Admin Dose 10 MG; Start 11/05/16 at 09:00 Amlodipine Besylate (Norvasc) 5 mg QHS PO Last administered on 11/06/16 21:16 ; Admin Dose 5 MG; Start 11/05/16 at 21:00 Aspirin (Aspirin) 81 mg DAILY PO Last administered on 11/06/16 09:09; Admin Dose 81 MG; Start 11/05/16 at 09:00 Calcium Acetate (Phoslo) 667 mg TID PO Last administered on 11/06/16 21:17; Admin Dose 667 MG; Start 11/05/16 at 09:00 Furosemide (Lasix) 20 mg DAILY@06 PO Last administered on 11/06/16 06:17; Admin Dose 20 MG; Start 11/05/16 at 09:00 Hydralazine HCl (Apresoline) 50 mg TID PO Last administered on 11/06/16 21:17 ; Admin Dose 50 MG; Start 11/05/16 at 09:00 Albuterol/ Ipratropium (Duoneb) 3 ml Q4H PRN HHN SBO; Start 11/05/16 at 06:30 Diagnostic Test (Pha) (Accu-Chek) 1 ea 02 XX ; Start 11/06/16 at 02:00 Miscellaneous Information 1 ea NOTE XX ; Start 11/05/16 at 07:00 Glucose (Glutose) 15 gm Q15M PRN PO DECREASED GLUCOSE Last administered on 11/06 08:07; Admin Dose 15 GM; Start 11/05/16 at 07:00 Glucose (Glutose) 22.5 gm Q15M PRN PO DECREASED GLUCOSE; Start 11/05/16 at 07: 00 Dextrose (D50w Syringe) 25 ml Q15M PRN IV DECREASED GLUCOSE; Start 11/05/16 at 07:00 Dextrose (D50w Syringe) 50 ml Q15M PRN IV DECREASED GLUCOSE; Start 11/05/16 at 07:00 Glucagon (Glucagen) 1 mg Q15M PRN IM DECREASED GLUCOSE; Start 11/05/16 at 07:00 Glucose (Glutose) 15 gm Q15M PRN BUCCAL DECREASED GLUCOSE; Start 11/05/16 at 07 :00 Tamsulosin HCl (Flomax) 0.4 mg HS PO Last administered on 11/06/16 20:57; Admin Dose 0.4 MG; Start 11/05/16 at 21:00 Atorvastatin Calcium (Lipitor) 40 mg QHS PO Last administered on 11/06/16 21: 16; Admin Dose 40 MG; Start 11/06/16 at 21:00 Insulin Glargine (Lantus) 10 unit QHS SC Last administered on 11/06/16 21:06; Admin Dose 10 UNIT; Start 11/06/16 at 21:00 EDILBERTO RODRIGUEZ MD Nov 07, 2016 00:19
[2016-11-07] MEDS: ACCUCHECK AT 2AM (Patients on SS coverage) XX SCH (02:00)
[2016-11-07] MEDS ORDERED: INSULIN ASPART [NOVOLOG] 3 ML PEN SC ONE (02:00)
[2016-11-07 06:15] LABS: ADD SCAN DIFF NO
[2016-11-07] MEDS: FUROSEMIDE 20 MG TAB PO SCH (06:17)
[2016-11-07 06:36] LABS: BASOPHILS % 0.5 % (0.0-2.0); EOSINOPHILS # 0.2 10^3/ul (0.0-0.5); EOSINOPHILS % 3.2 % (0.0-7.0); HEMATOCRIT 33.1 % (42.0-52.0); LYMPHOCYTES # 1.7 10^3/ul (0.8-2.9); LYMPHOCYTES % 29.9 % (15.0-51.0); MEAN CORPUSCULAR HEMOGLOBIN 29.2 pg (29.0-33.0); MEAN CORPUSCULAR HGB CONC 33.2 g/dl (32.0-37.0); MEAN CORPUSCULAR VOLUME 87.8 fl (82.0-101.0); MEAN PLATELET VOLUME 12.2 fl (7.4-10.4); NEUTROPHIL # 2.7 10^3/ul (1.6-7.5); PLATELET COUNT 122 10^3/UL (140-415); RED BLOOD COUNT 3.77 10^6/ul (4.70-6.10); RED CELL DISTRIBUTION WIDTH 13.4 % (11.5-14.5); WHITE BLOOD COUNT 5.6 10^3/ul (4.8-10.8)
[2016-11-07 07:34] LABS: ALBUMIN 4.4 g/dl (3.3-4.9); CALCIUM 8.4 mg/dl (8.4-10.2); CREATININE 6.87 mg/dl (0.61-1.24); MAGNESIUM 2.2 mg/dl (1.7-2.5); POTASSIUM 4.1 mmol/L (3.5-5.1)
[2016-11-07] MEDS: INSULIN ASPART [NOVOLOG] 3 ML PEN SC SCH ×2 (07:55→15:11)
[2016-11-07] MEDS: CALCIUM ACETATE 667 MG CAP PO SCH ×2 (08:44→13:00)
[2016-11-07] MEDS: ASPIRIN 81 MG TAB PO SCH (08:44)
[2016-11-07] MEDS: HEPARIN 5,000 UNIT/0.5 ML VIAL SC SCH (08:48)
[2016-11-07] MEDS: AMLODIPINE 10 MG TAB PO SCH (08:49)
[2016-11-07] MEDS ORDERED: LANT3I SC (12:17)
[2016-11-07 15:41] LABS: ADD UMIC YES; UR BILIRUBIN (Dip) NEGATIVE (NEGATIVE); UR BLOOD (Dip) 1+ (NEGATIVE); UR CLARITY CLEAR (CLEAR); UR COLOR LT. YELLOW (YELLOW); UR GLUCOSE (Dip) >=1000 % (NEGATIVE); UR KETONES (Dip) NEGATIVE (NEGATIVE); UR LEUKOCYTE ESTERASE (Dip) NEGATIVE (NEGATIVE); UR NITRITE (Dip) NEGATIVE (NEGATIVE); UR TOTAL PROTEIN (Dip) 4+ (NEGATIVE); UR UROBILINOGEN (Dip) 0.2 E.U./dL (0.1-1.0)
[2016-11-07 15:56] LABS: UR SQUAMOUS EPITHELIAL CELL RARE; URINE RBCS 0-2 /HPF (0)
--- NOTE | 2016-11-07 19:10 | DS ---
Date/Time of Note Date/Time of Note DATE: 11/07/16 TIME: 19:02 Discharge Summary Admission/Discharge Info Admit Date/Time Nov 05, 2016 at 06:40 Discharge Date/Time Nov 07, 2016 at 15:41 Final Diagnosis 1. Confusion and lethargy: Resolved / likely 2/2 #2 2. ESRD with missed dialysis 3. Hyperkalemia: 2/2 #2 : resolved 4. Recurrent falls / s/p PT eval / home PT setup 5. Shortness of breath/volume overload state, secondary to missed dialysis: resolved 6. Hypertension: controlled 7. History of diabetes. 8. History of dyslipidemia. 9. History of left upper extremity steal syndrome, status post brachiocephalic fistula banding and ligation of cephalic vein tributary on 09/25. 10. Anemia of chronic disease. 11. Hx of Ischemic Heart disease . Patient Condition: Stable Consults Nephrology: Steven . Procedures PROCEDURE: CT Brain without contrast. CLINICAL INDICATION: Altered mental status. TECHNIQUE: A multiplanar CT of the brain was performed on a CT scanner utilizing axial imaging from the skull base through the vertex without IV contrast. The CTDIvol is 42.43 mGy and the DLP is 720.23 mGycm. One or more of the following dose reduction techniques were utilized: Automated exposure control, adjustment of the mA and/or kV according to patient size, use of iterative reconstruction technique. COMPARISON: 11/03/2016 CT brain. FINDINGS: No evidence of intracranial hemorrhage or abnormal extra-axial fluid collection. The brain parenchyma is normal attenuation morphology with preservation of feldman white differentiation and age appropriate size of the ventricles and subarachnoid spaces. Nonspecific punctate calcification in the left middle cerebellar peduncle. This may reflect sequelae of chronic neurocysticercosis or vascular calcification. The basal cisterns, posterior fossa contents, brainstem, craniocervical junction , orbits, pituitary axis, paranasal sinuses, mastoid air cells, and calvarium are unremarkable. Left frontal scalp soft tissue swelling. IMPRESSION: 1. No intracranial hemorrhage or acute intracranial abnormality. 2. Left frontal scalp soft tissue swelling . RPTAT:AAJJ Yuan Henry Physician Date Time Electronically viewed and signed by Yuan Henry Physician on 11/06/2016 22:02 ELENA/ Hospital Course Full details are available in the chart for review, in summary this pleasant 66- year-old male presents to the emergency room with reports of frequent falls. He had missed1 session of dialysis at the time of presentation he had also been having some shortness of breath. He was found to be fluid overloaded with hyperkalemia and was admitted and had to have emergent dialysis. He has had dialysis daily since admission. He has had significant improvement in his symptoms and he feels back to normal. He had a brain CT done because he had a forehead hematoma likely from 1 of his falls but this came back as negative. He was observed by nursing staff to ambulate around the room without any difficulty. He did not report dizziness and he did not report feeling of near syncope. He is being however sent home with home health for home safety evaluation as well as for probable physical therapy. He was worked up for probable infection with blood cultures as well as a urinalysis, and these came back negative. His hospitalization was complicated by one episode of hypoglycemia, this is however due to the fact that they had reported that the patient was taken 13 units of Lantus at home when in actual fact he was only on 10 units. This was adjusted and the patient did well. At this point the patient has improved significantly and is stable for discharge from a clinical standpoint. 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 He is advised to follow-up with his primary care physician within the next 1-2 weeks to inform them about developments in the hospital and to ensure continued resolution of symptoms. He will also continue follow-up with Dr. Harris for hemodialysis on Wednesdays and Saturday as is his routine. Other comorbidities were also aggressively managed as per Med records. Patient at this time has been evaluated and examined in detail and is assessed to be in stable condition and ready for discharge. . Home Meds Active Scripts Insulin Glargine* (Lantus*) 100 Unit/Ml Soln, 10 UNIT SC QHS for 30 Days, 2 Refills Prov:DARYA HOLLY 11/07/16 Aspirin (Aspirin) 81 Mg Chew, 81 MG PO DAILY for 30 Days Prov:REGIDOR,MADI 03/20/16 Hydralazine Hcl* (Hydralazine Hcl*) 50 Mg Tab, 50 MG PO TID, #90 TAB Prov:MILTON CARTER MD 11/08/15 Reported Medications Ergocalciferol (Vitamin D2) (VITAMIN D2) 50,000 Unit Capsule, 42599 UNIT PO ONCE A MONTH, CAP 09/25/16 Furosemide* (Lasix*) 20 Mg Tablet, 20 MG PO DAILY, TAB 09/25/16 Amlodipine Besylate* (Amlodipine Besylate*) 10 Mg Tablet, 10 MG PO DAILY, #30 TAB 08/02/16 Atorvastatin* (Atorvastatin*) 40 Mg Tablet, 40 MG PO DAILY 06/30/15 Calcium Acetate (Calcium Acetate) 667 Mg Tablet, 667 MG PO TID 05/31/13 Tamsulosin Hcl* (Tamsulosin Hcl*) 0.4 Mg Cap.er.24h, 0.4 MG PO DAILY 05/31/13 Discontinued Reported Medications Amlodipine Besylate* (Norvasc*) 5 Mg Tablet, 5 MG PO QHS, TAB 09/25/16 Ampicillin* (Ampicillin*) 500 Mg Cap, 500 MG PO QID, CAP 09/25/16 Insulin Glargine* (Lantus*) 100 Unit/Ml Soln, 30 UNIT SC QHS, #1 VIAL 08/02/16 Follow-up Plan See hospital course. A. Primary Care Provider Wilton Snow Time spent on discharge: > 30 minutes Pending Labs Laboratory Tests Test 11/06/16 20:54 11/07/16 01:28 11/07/16 05:40 11/07/16 08:21 Bedside Glucose 288mg/dL (70-220) 324mg/dL (70-220) 121mg/dL (70-220) White Blood Count 5.610^3/ul (4.8-10.8) Red Blood Count 3.7710^6/ul (4.70-6.10) Hemoglobin 11.0g/dl (14.0-18.0) Hematocrit 33.1% (42.0-52.0) Mean Corpuscular Volume 87.8fl (82.0-101.0) Mean Corpuscular Hemoglobin 29.2pg (29.0-33.0) Mean Corpuscular Hemoglobin Concent 33.2g/dl (32.0-37.0) Red Cell Distribution Width 13.4% (11.5-14.5) Platelet Count 93636^3/UL (140-415) Mean Platelet Volume 12.2fl (7.4-10.4) Neutrophils % 48.0% (39.0-77.0) Lymphocytes % 29.9% (15.0-51.0) Monocytes % 18.0% (0.0-11.0) Eosinophils % 3.2% (0.0-7.0) Basophils % 0.5% (0.0-2.0) Nucleated Red Blood Cells % 0.0/100WBC (0.0-0.0) Neutrophils # 2.710^3/ul (1.6-7.5) Lymphocytes # 1.710^3/ul (0.8-2.9) Monocytes # 1.010^3/ul (0.3-0.9) Eosinophils # 0.210^3/ul (0.0-0.5) Basophils # 0.010^3/ul (0.0-0.1) Nucleated Red Blood Cells # 0.010^3/ul (0.0-0.0) Sodium Level 134mmol/L (135-144) Potassium Level 4.1mmol/L (3.5-5.1) Chloride Level 93mmol/L (97-110) Carbon Dioxide Level 30mmol/L (21-31) Anion Gap 15 (8-16) Blood Urea Nitrogen 42mg/dl (7-20) Creatinine 6.87mg/dl (0.61-1.24) Glucose Level 142mg/dl (70-220) Calcium Level 8.4mg/dl (8.4-10.2) Phosphorus Level 6.0mg/dl (2.5-4.9) Magnesium Level 2.2mg/dl (1.7-2.5) Albumin 4.4g/dl (3.3-4.9) Test 11/07/16 12:13 11/07/16 14:45 11/07/16 15:03 Bedside Glucose 219mg/dL (70-220) 245mg/dL (70-220) Urine Color LT. YELLOW (YELLOW) Urine Clarity CLEAR (CLEAR) Urine pH 7.5 (5.0-9.0) Urine Specific [place] 1.015 (1.003-1.030) Urine Ketones NEGATIVE (NEGATIVE) Urine Nitrite NEGATIVE (NEGATIVE) Urine Bilirubin NEGATIVE (NEGATIVE) Urine Urobilinogen 0.2 E.U./dL (0.1-1.0) Urine Leukocyte Esterase NEGATIVE (NEGATIVE) Urine Microscopic RBC 0-2/HPF (0) Urine Microscopic WBC 0-2/HPF (0) Urine Squamous Epithelial Cells RARE Urine Hemoglobin 1+ (NEGATIVE) Urine Glucose >=1000% (NEGATIVE) Urine Total Protein 4+ (NEGATIVE) DARYA HOLLY Nov 07, 2016 19:10
--- NOTE | 2016-11-07 19:34 | CONS ---
Date/Time of Note Date/Time of Note DATE: 11/07/16 TIME: 19:33 Assessment/Plan Assessment/Plan Chief Complaint/Hosp Course IMPRESSION: 1. The patient has fluid overload. 2. Hyperkalemia. 3. Pulmonary edema. 4. Ischemic heart disease myocardial infarction. 5. Hypertension. 6. End-stage renal disease. 7. Diabetes mellitus. 8. Anemia. 9. Atherosclerotic heart disease. 10. Forehead possible hematoma, rule out fall. plan hd Problems: Consultation Date/Type/Reason Admit Date/Time Nov 05, 2016 at 06:40 Type of Consultation: renal 24 HR Interval Summary Constitutional: no complaints Exam/Review of Systems Vital Signs Vitals Vital Signs Date Time Temp Pulse Resp B/P Pulse Ox O2 Delivery O2 Flow Rate FiO2 11/07/16 15:09 98.4 61 17 166/70 95 11/05/16 20:00 Nasal Cannula 2.0 Intake and Output 11/06/16 11/06/16 11/07/16 15:00 23:00 07:00 Intake Total 200 ml 320 ml 400 ml Output Total 2000 ml Balance -1800 ml 320 ml 400 ml Exam Respiratory: clear to auscultation Cardiovascular: regular rate and rhythm Results Result Diagram: 11/07/16 0540 11/07/16 0540 Results 24 hrs Laboratory Tests Test 11/06/16 20:54 11/07/16 01:28 11/07/16 05:40 11/07/16 08:21 Bedside Glucose 288 H 324 H 121 White Blood Count 5.6 Red Blood Count 3.77 L Hemoglobin 11.0 L Hematocrit 33.1 L Mean Corpuscular Volume 87.8 Mean Corpuscular Hemoglobin 29.2 Mean Corpuscular Hemoglobin Concent 33.2 Red Cell Distribution Width 13.4 Platelet Count 122 L Mean Platelet Volume 12.2 H Neutrophils % 48.0 Lymphocytes % 29.9 Monocytes % 18.0 H Eosinophils % 3.2 Basophils % 0.5 Nucleated Red Blood Cells % 0.0 Neutrophils # 2.7 Lymphocytes # 1.7 Monocytes # 1.0 H Eosinophils # 0.2 Basophils # 0.0 Nucleated Red Blood Cells # 0.0 Sodium Level 134 L Potassium Level 4.1 Chloride Level 93 L Carbon Dioxide Level 30 Anion Gap 15 Blood Urea Nitrogen 42 #H Creatinine 6.87 H Glucose Level 142 # Calcium Level 8.4 Phosphorus Level 6.0 H Magnesium Level 2.2 Albumin 4.4 Test 11/07/16 12:13 11/07/16 14:45 11/07/16 15:03 Bedside Glucose 219 245 H Urine Color LT. YELLOW Urine Clarity CLEAR Urine pH 7.5 Urine Specific [place] 1.015 Urine Ketones NEGATIVE Urine Nitrite NEGATIVE Urine Bilirubin NEGATIVE Urine Urobilinogen 0.2 E.U./dL Urine Leukocyte Esterase NEGATIVE Urine Microscopic RBC 0-2 Urine Microscopic WBC 0-2 Urine Squamous Epithelial Cells RARE Urine Hemoglobin 1+ H Urine Glucose >=1000 Urine Total Protein 4+ H EDILBERTO RODRIGUEZ MD Nov 07, 2016 19:34
== END 2016-11-07 15:41 | disposition home health service (06) | DRG 640 ==
LOC: E/R 01:11 → TEL 06:40
PROVIDERS: ADMIT Internal Medicine; ATTEND Internal Medicine
PROC: 5A1D60Z (ICD-10-PCS; principal; 2016-11-05)
DX: E87.70 Fluid overload, unspecified (principal); N18.6 End stage renal disease; J81.0 Acute pulmonary edema; E11.22 Type 2 diabetes mellitus with diabetic chronic kidney disease; I12.0 Hypertensive chronic kidney disease with stage 5 chronic kidney disease or end stage renal disease; D63.8 Anemia in other chronic diseases classified elsewhere; S00.83XA Contusion of other part of head, initial encounter; Z99.2 Dependence on renal dialysis; Z79.4 Long term (current) use of insulin; E87.5 Hyperkalemia; W19.XXXA Unspecified fall, initial encounter
CPT/HCPCS: 36415; 70450; 71010; 80053; 80069; 81001; 82962; 83735; 83880; 84132; 84484; 85025; 85610; 85730; 87040; 87081; 90935; 93005; 96372; 96374; J1644; J1815; J1940; J2060

== ENCOUNTER 2016-12-23 20:47 | Observation (INO) | payer MEDICARE, OTHER ==
[~2016-12-23] VITALS: Ht 167.6 cm; Wt 75.0 kg
[~2016-12-23 20:47] MED LIST changes: -AMLO5TAB4 PO; -AMP500 PO
[2016-12-23] MEDS ORDERED: MECLIZINE 12.5 MG TAB PO ONE (21:30)
[2016-12-23 21:57] LABS: BASOPHILS % 0.4 % (0.0-2.0); EOSINOPHILS # 0.2 10^3/ul (0.0-0.5); EOSINOPHILS % 3.1 % (0.0-7.0); HEMATOCRIT 31.5 % (42.0-52.0); HEMOGLOBIN 9.9 g/dl (14.0-18.0); LYMPHOCYTES # 1.5 10^3/ul (0.8-2.9); LYMPHOCYTES % 19.7 % (15.0-51.0); MEAN CORPUSCULAR HEMOGLOBIN 30.4 pg (29.0-33.0); MEAN CORPUSCULAR HGB CONC 31.4 g/dl (32.0-37.0); MEAN CORPUSCULAR VOLUME 96.6 fl (82.0-101.0); MEAN PLATELET VOLUME 10.8 fl (7.4-10.4); MONOCYTE # 0.7 10^3/ul (0.3-0.9); MONOCYTES % 8.7 % (0.0-11.0); NEUTROPHIL # 5.2 10^3/ul (1.6-7.5); NEUTROPHILS % 67.7 % (39.0-77.0); PLATELET COUNT 178 10^3/UL (140-415); RED BLOOD COUNT 3.26 10^6/ul (4.70-6.10); RED CELL DISTRIBUTION WIDTH 16.4 % (11.5-14.5); WHITE BLOOD COUNT 7.7 10^3/ul (4.8-10.8)
--- NOTE | 2016-12-23 22:07 | RADRPT ---
PROCEDURE: CT Head without contrast. CLINICAL INDICATION: Possible stroke, focal neurologic deficit TECHNIQUE: Continuous axial CT images were obtained from the base of skull to the vertex. No cont rast was administered. The calculated radiation dose measures 720 mGy centimeters. The CTDI measures 42 mGy COMPARISON: 11/06/2016 FINDINGS: There is minimal diffuse cerebral volume loss. The ventricles are symmetric and normal in configura tion. There is no mass effect or midline shift. There is no abnormal intra-axial or extra-axial fl uid collection. There is no evidence of intracranial hemorrhage. There are scattered areas of decreased attenuation in the supratentorial white matter, consistent wi th minimal small vessel ischemic changes. There is moderate atherosclerotic vascular calcification. The bony calvarium is intact. The orbital soft tissue contents are unremarkable. Paranasal sinuses appear clear. There is mild left frontal scalp soft tissue swelling, decreased from prior exam. IMPRESSION: 1. Minimal age related cerebral volume loss. Minimal small vessel ischemic changes. 2. Moderate atherosclerotic vascular calcification. 3. No mass effect or acute intracranial bleed. RPTAT: HBST .Job Medeiros MD, MD Date Time Electronically viewed and signed by .Job Medeiros MD, MD on 12/23/2016 22:06 .T/
--- NOTE | 2016-12-23 22:12 | RADRPT ---
PROCEDURE: XR Chest. CLINICAL INDICATION: Possible stroke. TECHNIQUE: Single frontal view of the chest. COMPARISON: 09/18/2016. FINDINGS: Cardiomegaly with mild pullback congestion and patchy air space disease at bilateral lung bases. Mil d discoid atelectasis at the right lung base is increased No signs of pleural fluid or pneumothorax are seen. The osseous structures and soft tissues are unremarkable. IMPRESSION: New mild failure. RPTAT: [facility]U Physician Natalya Date Time Electronically viewed and signed by Physician Natalya on 12/23/2016 22:12 RS/
[2016-12-23 22:25] LABS: INR 1.02; PROTIME 13.4 Sec (12.2-14.2)
[2016-12-23 22:26] LABS: PARTIAL THROMBOPLASTIN TIME 32.5 Sec (25.0-35.0)
[2016-12-23 22:27] LABS: CREATININE 11.75 mg/dl (0.61-1.24)
[2016-12-23 22:38] LABS: TROPONIN-I 0.013 ng/ml (0.00-0.12)
[2016-12-23 22:44] LABS: POTASSIUM 6.7 mmol/L (3.5-5.1)
[2016-12-23] MEDS ORDERED: NA POLYST SULFON 15 GM/60 ML BTL PO STA (23:00)
[2016-12-23] MEDS ORDERED: NA BICARBONATE 8.4% 50 ML SYG IV STA (23:00)
[2016-12-23] MEDS ORDERED: ALBUTEROL 0.5% (NEB) 2.5 MG/0.5 ML AMP INH STA (23:00)
[2016-12-23] MEDS ORDERED: DEXTROSE 50% 50 ML SYRINGE IV PRN (23:00)
[2016-12-23] MEDS ORDERED: INSULIN REGULAR, HUMAN 100 UNIT/1 ML 3ML VIAL IV STA (23:00)
[2016-12-23] MEDS ORDERED: ACETAMINOPHEN 325 MG TAB PO PRN (23:30)
[2016-12-23] MEDS ORDERED: ONDANSETRON 4 MG INJ IV PRN (23:30)
[2016-12-24] VITALS (15 sets, daily range): BP systolic 109–188; BP diastolic 61–89; PULSE 74–94; RESP 18–19; TEMP 98; Ht 167.6 cm; Wt 75.0 kg
--- NOTE | 2016-12-24 00:19 | ERA ---
ER Documentation Chief Complaint Date/Time DATE: 12/24/16 TIME: 00:17 Chief Complaint sob +dizziness in AM last dialysis on saturday fistula to SERAFIN. denies cp HPI Patient is a 66-year-old male with hypertension, diabetes, and dialysis who presents with dizziness. The symptoms started this morning. His symptoms were constant. He had shortness of breath as well. He denies chest pain. He has neck pain. He had dialysis last on Saturday and says that he missed his dialysis on Saturday. Upon review of old medical records the patient has multiple visits to the ER for various complaints. He does not know the name of his primary doctor. ROS All systems reviewed and are negative except as per history of present illness. Medications Home Meds Active Scripts Insulin Glargine* (Lantus*) 100 Unit/Ml Soln, 10 UNIT SC QHS for 30 Days, 2 Refills Prov:DARYA HOLLY 11/07/16 Aspirin (Aspirin) 81 Mg Chew, 81 MG PO DAILY for 30 Days Prov:MADI RAYMOND 03/20/16 Hydralazine Hcl* (Hydralazine Hcl*) 50 Mg Tab, 50 MG PO TID, #90 TAB Prov:MILTON CARTER MD 11/08/15 Reported Medications Ergocalciferol (Vitamin D2) (VITAMIN D2) 50,000 Unit Capsule, 09192 UNIT PO ONCE A MONTH, CAP 09/25/16 Furosemide* (Lasix*) 20 Mg Tablet, 20 MG PO DAILY, TAB 09/25/16 Amlodipine Besylate* (Amlodipine Besylate*) 10 Mg Tablet, 10 MG PO DAILY, #30 TAB 08/02/16 Atorvastatin* (Atorvastatin*) 40 Mg Tablet, 40 MG PO DAILY 06/30/15 Calcium Acetate (Calcium Acetate) 667 Mg Tablet, 667 MG PO TID 05/31/13 Tamsulosin Hcl* (Tamsulosin Hcl*) 0.4 Mg Cap.er.24h, 0.4 MG PO DAILY 05/31/13 Allergies Allergies: Coded Allergies: No Known Allergy (Unverified , 12/23/16) PMhx/Soc History of Surgery: Yes (LT AV SHUNT, LT SHOULDER SX ) Anesthesia Reaction: No Hx Neurological Disorder: No Hx Respiratory Disorders: No Hx Cardiac Disorders: Yes (HTN, HYPERLIPIDEMIA, ) Hx Psychiatric Problems: No Hx Miscellaneous Medical Probl: Yes (DM, CRF) Hx Alcohol Use: No Hx Substance Use: No Hx Tobacco Use: No Smoking Status: Never smoker FmHx Family History: No diabetes Physical Exam Vitals Vital Signs Date Time Temp Pulse Resp B/P Pulse Ox O2 Delivery O2 Flow Rate FiO2 12/23/16 23:46 77 17 95 21 12/23/16 21:40 0 12/23/16 20:53 97.8 78 26 173/74 96 Physical Exam Const: No acute distress Head: Atraumatic Eyes: Normal Conjunctiva ENT: Normal External Ears, Nose and Mouth. Neck: Full range of motion..~ No meningismus. Resp: Clear to auscultation bilaterally Cardio: Regular rate and rhythm, no murmurs Abd: Soft, non tender, non distended. Normal bowel sounds Skin: No petechiae or rashes Back: No midline or flank tenderness Ext: No cyanosis, or edema Neur: Awake and alert Psych: Normal Mood and Affect Result Diagram: 12/23/16213812/23/162138 Results 24 hrs Laboratory Tests Test 12/23/16 21:39 12/23/16 22:15 White Blood Count 7.710^3/ul Red Blood Count 3.2610^6/ul Hemoglobin 9.9g/dl Hematocrit 31.5% Mean Corpuscular Volume 96.6fl Mean Corpuscular Hemoglobin 30.4pg Mean Corpuscular Hemoglobin Concent 31.4g/dl Red Cell Distribution Width 16.4% Platelet Count 12236^3/UL Mean Platelet Volume 10.8fl Neutrophils % 67.7% Lymphocytes % 19.7% Monocytes % 8.7% Eosinophils % 3.1% Basophils % 0.4% Nucleated Red Blood Cells % 0.0/100WBC Neutrophils # 5.210^3/ul Lymphocytes # 1.510^3/ul Monocytes # 0.710^3/ul Eosinophils # 0.210^3/ul Basophils # 0.010^3/ul Nucleated Red Blood Cells # 0.010^3/ul Prothrombin Time 13.4Sec Prothrombin Time Ratio 1.0 INR International Normalized Ratio 1.02 Activated Partial Thromboplast Time 32.5Sec Sodium Level 141mmol/L Potassium Level 6.7mmol/L Chloride Level 97mmol/L Carbon Dioxide Level 23mmol/L Anion Gap 28 Blood Urea Nitrogen 86mg/dl Creatinine 11.75mg/dl Glucose Level 241mg/dl Hemoglobin A1c 6.1% Calcium Level 8.0mg/dl Troponin I 0.013ng/ml Bedside Glucose 214mg/dL Current Medications Medications (Trade) Dose Ordered Sig/Sita Route PRN Reason Start Time Stop Time Status Last Admin Dose Admin Meclizine HCl (Antivert) 25 mg ONCE ONCE PO 12/23/16 21:30 12/23/16 21:31 DC 12/23/16 21:45 Sodium Polystyrene Sulfonate (Kayexalate) 30 gm ONCE STAT PO 12/23/16 23:00 12/23/16 23:02 DC 12/23/16 23:32 Albuterol (Proventil 0.5% (Neb)) 15 mg ONCE STAT INH 12/23/16 23:00 12/23/16 23:02 DC 12/23/16 23:46 Sodium Bicarbonate (Na Bicarb 8.4% Syg) 50 ml ONCE STAT IV 12/23/16 23:00 12/23/16 23:02 DC 12/23/16 23:19 Insulin Human Regular (Humulin R) 10 unit ONCE STAT IV 12/23/16 23:00 12/23/16 23:02 DC 12/23/16 23:23 Dextrose (D50w Syringe) ONCE PRN IV POC BLOOD GLUCOSE <250 MG/DL 12/23/16 23:00 12/23/16 23:17 Ondansetron HCl (Zofran Inj) 4 mg ER BRIDGE PRN IV NAUSEA AND/OR VOMITING 12/23/16 23:30 12/24/16 23:29 Acetaminophen (Tylenol Tab) 650 mg ER BRIDGE PRN PO MILD PAIN/FEVER 12/23/16 23:30 12/24/16 23:29 Procedures/MDM EKG read by me: Rate/Rhythm: Regular rate and rhythm at a rate of 75 Intervals: Normal Impression: No evidence of ischemia or arrhythmia Chest x-ray shows mild heart failure per radiology. CT scan of the brain shows no intracranial hemorrhage per radiology. Patient is a 66-year-old male who presents with acute hyperkalemia. He missed dialysis on Saturday. His potassium was 6.7. He was given albuterol, insulin, glucose, Kayexalate, and bicarbonate for his hyperkalemia. He will need dialysis. The patient will be admitted to the care of Dr. Magallanes from the panel team to a telemetry bed. I spoke with Dr. Harris his plant utilities engineer who will arrange for dialysis in the morning. I doubt stroke, acute coronary syndrome, or sepsis. Critical Care: Time: 35 minutes excluding all billable procedures. Treatments/Evaluations: Close monitoring and treatment of unstable vital signs, cardiorespiratory, and neurologic status, while maintaining tight balance of fluid, respiratory, and cardiac interventions. Departure Diagnosis: Primary Impression: Hyperkalemia Additional Impression: Dizziness Condition: Serious LARRY PEMBERTON MD Dec 24, 2016 00:19
[2016-12-24] MEDS ORDERED: ACETAMINOPHEN 325 MG TAB PO PRN (00:30)
[2016-12-24] MEDS ORDERED: morphine 4 MG/ML VIAL IV PRN (00:30)
[2016-12-24] MEDS ORDERED: DOCUSATE SODIUM 100 MG CAP PO PRN (00:30)
[2016-12-24] MEDS ORDERED: BISACODYL (EC) 5 MG TAB PO PRN (00:30)
[2016-12-24] MEDS ORDERED: NACL 0.9% 3 ML SYG IV SCH (00:30)
--- NOTE | 2016-12-24 01:03 | HP ---
Date/Time of Note Date/Time of Note DATE: 12/24/16 TIME: 00:59 Assessment/Plan VTE Prophylaxis VTE Prophylaxis Intervention: SCD's Lines/Catheters IV Catheter Type (from Nrsg): Peripheral IV Assessment/Plan Chief Complaint/Hosp Course This is a 66-year-old male being admitted to the telemetry floor for: #1 dizziness secondary likely to missed dialysis #2 end-stage renal disease on dialysis, on Saturday, Saturday and Saturday (with missed dialysis on Saturday). #3 hyperkalemia #4 hypertension. #5 history of diabetes. #6 history of dyslipidemia. #7 history of left upper extremity steal syndrome, status post brachiocephalic fistula banding and ligation of cephalic vein tributary #8 anemia of chronic disease. #9 DVT GI prophylaxis Plan: Patient missed his last dialysis treatment this likely is result of patient's current dizziness. He presented with hyperkalemia of 6.7, BUN of 83 and a creatinine of 11.4. Consult was placed to patient's director physical therapy Dr. Harris who stated that patient will be dialyzed in the a.m. At the current time we will continue patient's home Lasix dose. Continue blood pressure medications. He received treatment for his hyperkalemia in the ED please see ED report for further details. His EKG did not show any acute changes. We will continue diabetes management and put him on insulin sliding scale. Will put him on a renal diet. We will also resume patient's home medications for his end-stage renal disease along with chronic home meds as clinically appropriate. Further treatment strategy will be implemented as per the clinical course Problems: HPI/ROS Admit Date/Time Admit Date/Time Hx of Present Illness cc: dizziness, missed dialysis Patient is a 66-year-old male with hypertension, diabetes, and dialysis who presents with dizziness. The symptoms started this morning. His symptoms were constant. He had shortness of breath as well. He denies chest pain. He has neck pain. He had dialysis last on Saturday and says that he missed his dialysis on Saturday. He did not give a reason for why he missed his dialysis on Saturday. ROS Const: As per HPI Eyes : No pain discharge or redness or change in visual acuity ENT: No pain, sore throat, congestion, congestion, dysphagia or discharge Respiratory: No shortness of breath, cough, sputum, wheezing, or pleuritic pain Cardiovascular: No chest pain, palpitation, PND, or edema GI : no change in appetite, abdominal pain, nausea, vomiting, diarrhea, constipation, or change in the color his stool Genitourinary: As per HPI Musculoskeletal: No joint pain, back pain, neck pain, restricted range of motion in neck or joints Skin: No rash, bruising or hives Neuro: No headache, dizziness, syncope, seizure, focal weakness Endocrine: No polyuria, polydipsia, temperature intolerance Psych: No hallucination, depression, anxiety or suicidal ideation PMH/Family/Social Past Medical History hypertension, dyslipidemia, diabetes, end-stage renal disease, on dialysis, left upper extremity steal syndrome, status post brachiocephalic fistula banding and ligation of cephalic vein tributary Past Surgical History status post brachiocephalic fistula banding and ligation of cephalic vein tributary, left AV fistula Past Surgical Hx: other Family History Significant Family History: no pertinent family hx Social History Alcohol Use: none Smoking Status: Never smoker Drug Use: none Exam/Review of Systems Vital Signs Vitals Vital Signs Date Time Temp Pulse Resp B/P Pulse Ox O2 Delivery O2 Flow Rate FiO2 12/24/16 00:48 98.0 101 19 138/73 94 Room Air 12/23/16 23:46 21 12/23/16 21:40 0 Exam Exam General: Patient is well-developed well-nourished The patient is alert oriented -3 lying comfortably in bed. HEENT: Atraumatic, normocephalic. The pupils are equal, round and reactive. Extraocular motor are intact Neck: Supple with full range of motion. No rigidity or meningismus Chest: Nontender Lungs: Clear to auscultation bilaterally no crackles rales or wheezing Heart: Normal S1-S2, Regular rhythm and rate. No overt murmurs appreciated Abdomen: Soft , nontender, nondistended , bowel sounds are present. No guarding no rebound tenderness , No masses or organomegaly. No costovertebral temporal angle mass Extremities: Normal to inspection, no edema no cyanosis Neurologic: Normal mental status, speech normal, cranial nerves II through XII are intact, motor and sensory are intact, no focal weakness Labs Result Diagram: 12/23/16213812/23/162138 Medications Medications Current Medications Dextrose (D50w Syringe) ONCE PRN IV POC BLOOD GLUCOSE <250 MG/DL Last administered on 12/23/16t 23:17; Admin Dose 50 ML; Start 12/23/16 at 23:00 Acetaminophen (Tylenol Tab) 650 mg Q6H PRN PO PAIN LEVEL 1-3 OR FEVER; Start at 00:30 Morphine Sulfate (morphine) 2 mg Q4H PRN IV PAIN LEVEL 7-10; Start 12/24/16 at 00:30 Docusate Sodium (Colace) 100 mg Q12H PRN PO CONSTIPATION; Start 12/24/16 at 00: 30 Bisacodyl (Dulcolax) 5 mg DAILY PRN PO CONSTIPATION; Start 12/24/16 at 00:30 Pantoprazole (Protonix Iv) 40 mg DAILY@06 IV ; Start 12/24/16 at 06:00 WILLIAM DEWEY Dec 24, 2016 01:03
[2016-12-24] MEDS ORDERED: GLUCAGON 1 MG INJ IM PRN (03:00)
[2016-12-24] MEDS ORDERED: DEXTROSE 50% 50 ML SYRINGE IV PRN ×2 (03:00)
[2016-12-24] MEDS ORDERED: GLUCOSE GEL 15 GRAM TUBE PO PRN ×2 (03:00)
[2016-12-24] MEDS ORDERED: GLUCOSE GEL 15 GRAM TUBE BUCCAL PRN (03:00)
[2016-12-24] MEDS ORDERED: PANTOPRAZOLE 40 MG INJ IV SCH (06:00)
[2016-12-24 07:11] LABS: BASOPHILS % 0.4 % (0.0-2.0); EOSINOPHILS # 0.1 10^3/ul (0.0-0.5); EOSINOPHILS % 0.6 % (0.0-7.0); HEMATOCRIT 29.7 % (42.0-52.0); HEMOGLOBIN 9.6 g/dl (14.0-18.0); LYMPHOCYTES # 0.8 10^3/ul (0.8-2.9); LYMPHOCYTES % 9.3 % (15.0-51.0); MEAN CORPUSCULAR HGB CONC 32.3 g/dl (32.0-37.0); MEAN CORPUSCULAR VOLUME 95.8 fl (82.0-101.0); MEAN PLATELET VOLUME 11.4 fl (7.4-10.4); MONOCYTE # 0.8 10^3/ul (0.3-0.9); NEUTROPHIL # 6.6 10^3/ul (1.6-7.5); NEUTROPHILS % 79.1 % (39.0-77.0); PLATELET COUNT 186 10^3/UL (140-415); RED CELL DISTRIBUTION WIDTH 16.3 % (11.5-14.5); WHITE BLOOD COUNT 8.3 10^3/ul (4.8-10.8)
[2016-12-24 07:40] LABS: ALBUMIN 4.4 g/dl (3.3-4.9); ALBUMIN/GLOBULIN RATIO 1.37; CREATININE 9.38 mg/dl (0.61-1.24); MAGNESIUM 2.5 mg/dl (1.7-2.5); PHOSPHORUS 6.4 mg/dl (2.5-4.9); POTASSIUM 3.9 mmol/L (3.5-5.1); TOTAL PROTEIN 7.6 g/dl (6.1-8.1)
[2016-12-24] MEDS: INSULIN ASPART [NOVOLOG] 3 ML PEN SC SCH ×2 (08:00→13:25)
[2016-12-24] MEDS ORDERED: TAMSULOSIN (SR) 0.4 MG CAP PO SCH (09:00)
[2016-12-24] MEDS ORDERED: ATORVASTATIN 40 MG TAB PO SCH (09:00)
[2016-12-24] MEDS ORDERED: ASPIRIN 81 MG TAB PO SCH (09:00)
[2016-12-24] MEDS ORDERED: AMLODIPINE 10 MG TAB PO SCH (09:00)
[2016-12-24] MEDS ORDERED: FUROSEMIDE 20 MG TAB PO SCH (09:00)
[2016-12-24] MEDS: CALCIUM ACETATE 667 MG CAP PO SCH ×2 (09:42→12:37)
[2016-12-24 09:52] LABS: THYROID STIMULATING HORMONE 0.872 MIU/L (0.465-4.680)
--- NOTE | 2016-12-24 13:49 | PDOCDIS ---
Discharge Instructions CONDITION Patient Condition: Good FOLLOW UP/APPOINTMENTS Follow-up Plan Please follow up with your primary care provider and local area network systems adminstrator and please make all dialysis appointments. KATIUSKA RODRIGUEZ Dec 24, 2016 13:49
--- NOTE | 2016-12-24 13:53 | DS ---
Date/Time of Note Date/Time of Note DATE: 12/24/16 TIME: 13:53 Discharge Summary Admission/Discharge Info Admit Date/Time Dec 23, 2016 at 23:17 Discharge Date/Time Hx of Present Illness cc: dizziness, missed dialysis Patient is a 66-year-old male with hypertension, diabetes, and dialysis who presents with dizziness. The symptoms started this morning. His symptoms were constant. He had shortness of breath as well. He denies chest pain. He has neck pain. He had dialysis last on Saturday and says that he missed his dialysis on Saturday. He did not give a reason for why he missed his dialysis on Saturday. Hospital Course #1 dizziness secondary likely to missed dialysis #2 end-stage renal disease on dialysis, on Saturday, Saturday and Saturday (with missed dialysis on Saturday). #3 hyperkalemia #4 hypertension. #5 history of diabetes. #6 history of dyslipidemia. #7 history of left upper extremity steal syndrome, status post brachiocephalic fistula banding and ligation of cephalic vein tributary #8 anemia of chronic disease. Patient is a 66-year-old male with past medical history of end-stage renal disease on dialysis who missed dialysis on Saturday. Patient presented to [facility] with a potassium of 6.7 BUN of 83 and a creatinine of 11.4. Patient was dialyzed and symptoms have since resolved. Patient will be sent home to continue his home medications and to follow with his current dialysis schedule on Saturday. Patient was told to follow-up with his wood cabinet finisher as soon as possible. Home Meds Active Scripts Insulin Glargine* (Lantus*) 100 Unit/Ml Soln, 10 UNIT SC QHS for 30 Days, 2 Refills Prov:DARYA HOLLY 11/07/16 Aspirin (Aspirin) 81 Mg Chew, 81 MG PO DAILY for 30 Days Prov:MADI RAYMOND 03/20/16 Hydralazine Hcl* (Hydralazine Hcl*) 50 Mg Tab, 50 MG PO TID, #90 TAB Prov:MILTON CARTER MD 11/08/15 Reported Medications Ergocalciferol (Vitamin D2) (VITAMIN D2) 50,000 Unit Capsule, 84686 UNIT PO ONCE A MONTH, CAP 09/25/16 Furosemide* (Lasix*) 20 Mg Tablet, 20 MG PO DAILY, TAB 09/25/16 Amlodipine Besylate* (Amlodipine Besylate*) 10 Mg Tablet, 10 MG PO DAILY, #30 TAB 08/02/16 Atorvastatin* (Atorvastatin*) 40 Mg Tablet, 40 MG PO DAILY 06/30/15 Calcium Acetate (Calcium Acetate) 667 Mg Tablet, 667 MG PO TID 05/31/13 Tamsulosin Hcl* (Tamsulosin Hcl*) 0.4 Mg Cap.er.24h, 0.4 MG PO DAILY 05/31/13 Primary Care Provider Wilton Snow Time spent on discharge: > 30 minutes Pending Labs Laboratory Tests Test 12/23/16 21:39 12/23/16 22:15 12/24/16 00:56 12/24/16 01:41 White Blood Count 7.710^3/ul (4.8-10.8) Red Blood Count 3.2610^6/ul (4.70-6.10) Hemoglobin 9.9g/dl (14.0-18.0) Hematocrit 31.5% (42.0-52.0) Mean Corpuscular Volume 96.6fl (82.0-101.0) Mean Corpuscular Hemoglobin 30.4pg (29.0-33.0) Mean Corpuscular Hemoglobin Concent 31.4g/dl (32.0-37.0) Red Cell Distribution Width 16.4% (11.5-14.5) Platelet Count 71400^3/UL (140-415) Mean Platelet Volume 10.8fl (7.4-10.4) Neutrophils % 67.7% (39.0-77.0) Lymphocytes % 19.7% (15.0-51.0) Monocytes % 8.7% (0.0-11.0) Eosinophils % 3.1% (0.0-7.0) Basophils % 0.4% (0.0-2.0) Nucleated Red Blood Cells % 0.0/100WBC (0.0-0.0) Neutrophils # 5.210^3/ul (1.6-7.5) Lymphocytes # 1.510^3/ul (0.8-2.9) Monocytes # 0.710^3/ul (0.3-0.9) Eosinophils # 0.210^3/ul (0.0-0.5) Basophils # 0.010^3/ul (0.0-0.1) Nucleated Red Blood Cells # 0.010^3/ul (0.0-0.0) Prothrombin Time 13.4Sec (12.2-14.2) Prothrombin Time Ratio 1.0 INR International Normalized Ratio 1.02 Activated Partial Thromboplast Time 32.5Sec (25.0-35.0) Sodium Level 141mmol/L (135-144) Potassium Level 6.7mmol/L (3.5-5.1) Chloride Level 97mmol/L (97-110) Carbon Dioxide Level 23mmol/L (21-31) Anion Gap 28 (8-16) Blood Urea Nitrogen 86mg/dl (7-20) Creatinine 11.75mg/dl (0.61-1.24) Glucose Level 241mg/dl (70-220) Hemoglobin A1c 6.1% (0-5.9) Calcium Level 8.0mg/dl (8.4-10.2) Troponin I 0.013ng/ml (0.00-0.12) Bedside Glucose 214mg/dL (70-220) 50mg/dL (70-220) 147mg/dL (70-220) Test 12/24/16 06:42 12/24/16 12:04 12/24/16 13:22 White Blood Count 8.310^3/ul (4.8-10.8) Red Blood Count 3.1010^6/ul (4.70-6.10) Hemoglobin 9.6g/dl (14.0-18.0) Hematocrit 29.7% (42.0-52.0) Mean Corpuscular Volume 95.8fl (82.0-101.0) Mean Corpuscular Hemoglobin 31.0pg (29.0-33.0) Mean Corpuscular Hemoglobin Concent 32.3g/dl (32.0-37.0) Red Cell Distribution Width 16.3% (11.5-14.5) Platelet Count 34680^3/UL (140-415) Mean Platelet Volume 11.4fl (7.4-10.4) Neutrophils % 79.1% (39.0-77.0) Lymphocytes % 9.3% (15.0-51.0) Monocytes % 10.0% (0.0-11.0) Eosinophils % 0.6% (0.0-7.0) Basophils % 0.4% (0.0-2.0) Nucleated Red Blood Cells % 0.0/100WBC (0.0-0.0) Neutrophils # 6.610^3/ul (1.6-7.5) Lymphocytes # 0.810^3/ul (0.8-2.9) Monocytes # 0.810^3/ul (0.3-0.9) Eosinophils # 0.110^3/ul (0.0-0.5) Basophils # 0.010^3/ul (0.0-0.1) Nucleated Red Blood Cells # 0.010^3/ul (0.0-0.0) Sodium Level 145mmol/L (135-144) Potassium Level 3.9mmol/L (3.5-5.1) Chloride Level 98mmol/L (97-110) Carbon Dioxide Level 25mmol/L (21-31) Anion Gap 26 (8-16) Blood Urea Nitrogen 66mg/dl (7-20) Creatinine 9.38mg/dl (0.61-1.24) Glucose Level 160mg/dl (70-220) Hemoglobin A1c 6.0% (0-5.9) Calcium Level 8.0mg/dl (8.4-10.2) Phosphorus Level 6.4mg/dl (2.5-4.9) Magnesium Level 2.5mg/dl (1.7-2.5) Total Bilirubin 0.0mg/dl (0.2-1.3) Direct Bilirubin 0.00mg/dl (0.00-0.20) Indirect Bilirubin 0.0mg/dl (0-1.1) Aspartate Amino Transf (AST/SGOT) 10IU/L (15-46) Alanine Aminotransferase (ALT/SGPT) 21IU/L (13-69) Alkaline Phosphatase 106IU/L (42-121) Total Protein 7.6g/dl (6.1-8.1) Albumin 4.4g/dl (3.3-4.9) Globulin 3.20g/dl (1.3-3.2) Albumin/Globulin Ratio 1.37 Thyroid Stimulating Hormone (TSH) 0.872MIU/L (0.465-4.680) Bedside Glucose 185mg/dL (70-220) 180mg/dL (70-220) KATIUSKA RODRIGUEZ Dec 24, 2016 13:53
--- NOTE | 2016-12-24 17:18 | QN ---
Documentation Comment [id number] Alfred MD Dec 24, 2016 17:18
[2016-12-24] MEDS ORDERED: INSULIN GLARGINE [LANtus] 3 ML PEN SC SCH (21:00)
[2016-12-25] MEDS ORDERED: ACCU-CHEK XX SCH (02:00)
--- NOTE | 2016-12-25 04:34 | CONS ---
DATE OF ADMISSION: 12/23/2016 DATE OF CONSULTATION: 12/24/[address] Flavio Magallanes for kindly asking me to see this patient in consultation. HISTORY OF PRESENT ILLNESS: The patient was admitted with a history of ESRD, hypertension, diabetes mellitus, dyslipidemia, history of left upper extremity brachiocephalic fistula, history of banding and ligation of the cephalic vein tributary in the past. He presented with dizziness. The patient also had hand pain. The patient was noted to have laboratory data done showing hematocrit 29.7, potassium 6.7. The calcium was 8.0. Hemoglobin 6.1. The patient is going to be admitted for further management. PAST MEDICAL HISTORY: Positive for end-stage renal disease, hypertension, diabetes mellitus, and dyslipidemia. History of AV fistula placement, history of AV fistula _syndrome, history of brachiocephalic fistula banding and ligation of the cephalic vein tributaries in the past, history of anemia, history of congestive heart failure, history of pneumonia, atherosclerotic heart disease, dyslipidemia. The patient's other history includes a history of confusion. The patient has history of thrombectomy in the past. ALLERGIES: NEGATIVE. FAMILY HISTORY: Negative. SOCIAL HISTORY: Negative per patient. MEDICATION: Listed as: 1. Tylenol. 2. Labetalol 3. Amlodipine. 4. Aspirin. 5. Lipitor. 6. Bisacodyl. 7. Calcium acetate. 8. Lasix. REVIEW OF SYSTEMS: As mentioned above. HEENT: Unremarkable. Respiratory: No shortness of breath. Abdomen: Unremarkable. Extremities: Hand pain and finger deformity. PHYSICAL EXAMINATION: VITAL SIGNS: The patient is seen today with blood pressure 150/70. HEENT: Normocephalic, atraumatic. Pupils equal and reactive to light. NECK: Supple. LUNGS: Clear. HEART: S1, S2 normal. Systolic murmur noted. ABDOMEN: Soft. Bowel sounds positive. No palpable mass. EXTREMITIES: No clubbing, cyanosis or edema. NEUROLOGIC: The patient is awake, alert with no focal deficits. LABORATORY: Potassium 3.9, sodium 145. The patient had a CT scan done showing minimal irregularity, moderate atherosclerotic vascular calcification, mild failure. IMPRESSION: 1. Hyperkalemia. 2. Pulmonary edema. 3. Hypertension. 4. Diabetes mellitus. 5. Atherosclerotic heart disease. 6. Dyslipidemia. 7. History of multiple renal vein thrombectomies in the past. 8. Anemia. PLAN: To continue diabetic renal diet, hemodialysis. Orders were done. Dictated By: Joseph Harris MD /jeyson/tim /Document#: [id number] MTDD
== END 2016-12-24 15:18 | disposition home or self-care (01) ==
LOC: E/R 20:47 → MS4 23:17 → INTOOBSV 23:17
PROVIDERS: ADMIT Family Medicine; ATTEND Family Medicine
DX: R42 Dizziness and giddiness (principal); I12.0 Hypertensive chronic kidney disease with stage 5 chronic kidney disease or end stage renal disease; E11.22 Type 2 diabetes mellitus with diabetic chronic kidney disease; N18.6 End stage renal disease; Z99.2 Dependence on renal dialysis; E87.5 Hyperkalemia; E78.5 Hyperlipidemia, unspecified; D63.8 Anemia in other chronic diseases classified elsewhere; Z79.82 Long term (current) use of aspirin
CPT/HCPCS: 36415; 70450; 71010; 80048; 80053; 82962; 83036; 83735; 84100; 84443; 84484; 85025; 85610; 85730; 90935; 92610; 93005; 94664; 96374; 96375; 99291; C9113; G0378; G8996; G8997; G8998; J1815; 99217

== ENCOUNTER 2016-12-26 14:58 | Emergency (ER) | payer MEDICARE, OTHER ==
[~2016-12-26] VITALS: Ht 167.6 cm; Wt 75.0 kg
[2016-12-26 15:00] VITALS: Ht 167.6 cm; Wt 75.0 kg
[2016-12-26 16:38] LABS: BASOPHILS % 0.4 % (0.0-2.0); EOSINOPHILS # 0.1 10^3/ul (0.0-0.5); EOSINOPHILS % 1.3 % (0.0-7.0); HEMOGLOBIN 9.8 g/dl (14.0-18.0); LYMPHOCYTES # 1.4 10^3/ul (0.8-2.9); LYMPHOCYTES % 17.4 % (15.0-51.0); MEAN CORPUSCULAR HEMOGLOBIN 31.8 pg (29.0-33.0); MEAN CORPUSCULAR HGB CONC 33.8 g/dl (32.0-37.0); MEAN CORPUSCULAR VOLUME 94.2 fl (82.0-101.0); MEAN PLATELET VOLUME 10.6 fl (7.4-10.4); MONOCYTE # 1.2 10^3/ul (0.3-0.9); MONOCYTES % 15.1 % (0.0-11.0); NEUTROPHIL # 5.2 10^3/ul (1.6-7.5); NEUTROPHILS % 65.3 % (39.0-77.0); PLATELET COUNT 164 10^3/UL (140-415); RED BLOOD COUNT 3.08 10^6/ul (4.70-6.10); RED CELL DISTRIBUTION WIDTH 15.5 % (11.5-14.5); WHITE BLOOD COUNT 7.9 10^3/ul (4.8-10.8)
[2016-12-26 16:51] LABS: INR 1.07; PROTIME 13.9 Sec (12.2-14.2); PT RATIO 1.1
[2016-12-26 16:52] LABS: PARTIAL THROMBOPLASTIN TIME 34.7 Sec (25.0-35.0)
[2016-12-26 16:59] LABS: CALCIUM 7.6 mg/dl (8.4-10.2); CREATININE 10.68 mg/dl (0.61-1.24); POTASSIUM 5.2 mmol/L (3.5-5.1)
[2016-12-26] MEDS ORDERED: HYDROCODONE/APAP (5/325) TAB PO ONE (17:00)
[2016-12-26 17:10] LABS: TROPONIN-I 0.039 ng/ml (0.00-0.12)
[2016-12-26] MEDS ORDERED: LANT3I SC (17:18)
--- NOTE | 2016-12-26 17:18 | RADRPT ---
PROCEDURE: XR Chest. CLINICAL INDICATION: Chest pain TECHNIQUE: Single portable view of the chest was obtained COMPARISON: 09/18/2016 FINDINGS: The heart is enlarged. The lungs are clear. There is no pleural effusion or pneumothorax. RPTAT: AA IMPRESSION: Mild Cardiomegaly. .Dennis Ramirez MD, MD Date Time Electronically viewed and signed by .Dennis Ramirez MD, on 12/26/2016 17:17 .S/
--- NOTE | 2016-12-26 17:21 | RADRPT ---
PROCEDURE: Finger radiograph. CLINICAL INDICATION: Pain. COMPARISON: None relevant listed. TECHNIQUE: AP, lateral and oblique views of the left fingers was obtained. FINDINGS: Alignment is anatomic. No acute fracture. Mild narrowing of the DIP joints of the third through fifth digits. The marrow space within the proximal phalanx of the middle finger is expanded, which may be related to old injury or Paget's disease. No localized soft tissue swelling. Vascular calcifications. IMPRESSION: No acute fracture or dislocation. Further findings as detailed above. RPTAT: PP Physician Sirisha Date Time Electronically viewed and signed by Physician Sirisha on 12/26/2016 17:21 LG/
--- NOTE | 2016-12-26 18:01 | ERD ---
ER Documentation Chief Complaint Date/Time DATE: 12/26/16 TIME: 17:59 Chief Complaint generalized weakness x 2 days HPI This is a 66-year-old male presents to the emergency room for evaluation of generalized weakness and pain all over his body for the past 2 days. This patient does have a history of hypertension, and end-stage renal disease on dialysis Saturday, Saturday, Saturday. The patient states that he has dialysis in 20 minutes but came to the emergency room today for evaluation of his symptoms. ROS All systems reviewed and are negative except as per history of present illness. Medications Home Meds Active Scripts Aspirin (Aspirin) 81 Mg Chew, 81 MG PO DAILY for 30 Days Prov:MADI RAYMOND 03/20/16 Hydralazine Hcl* (Hydralazine Hcl*) 50 Mg Tab, 50 MG PO TID, #90 TAB Prov:MILTON CARTER MD 11/08/15 Reported Medications Insulin Glargine* (Lantus*) 100 Unit/Ml Soln, 0 SC BID, #1 VIAL 10 UNITS-QAM, 30 UNITS-QHS 12/26/16 Ergocalciferol (Vitamin D2) (VITAMIN D2) 50,000 Unit Capsule, 945[address] UNIT PO ONCE A MONTH, CAP 09/25/16 Furosemide* (Lasix*) 20 Mg Tablet, 20 MG PO DAILY, TAB 09/25/16 Amlodipine Besylate* (Amlodipine Besylate*) 10 Mg Tablet, 10 MG PO DAILY, #30 TAB 08/02/16 Atorvastatin* (Atorvastatin*) 40 Mg Tablet, 40 MG PO DAILY 06/30/15 Calcium Acetate (Calcium Acetate) 667 Mg Tablet, 667 MG PO TID 05/31/13 Tamsulosin Hcl* (Tamsulosin Hcl*) 0.4 Mg Cap.er.24h, 0.4 MG PO DAILY 05/31/13 Discontinued Scripts Insulin Glargine* (Lantus*) 100 Unit/Ml Soln, 10 UNIT SC QHS for 30 Days, 2 Refills Prov:DARYA HOLLY 11/07/16 Allergies Allergies: Coded Allergies: No Known Allergy (Unverified , 12/26/16) PMhx/Soc History of Surgery: Yes Anesthesia Reaction: No Hx Respiratory Disorders: No Hx Cardiac Disorders: Yes (htn) Hx Psychiatric Problems: No Hx Miscellaneous Medical Probl: No Hx Alcohol Use: Yes Hx Substance Use: No Hx Tobacco Use: No Smoking Status: Never smoker Physical Exam Vitals Vital Signs Date Time Temp Pulse Resp B/P Pulse Ox O2 Delivery O2 Flow Rate FiO2 12/26/16 17:11 72 18 152/61 100 Room Air 12/26/16 16:12 Nasal Cannula 2 12/26/16 15:00 98.7 77 18 162/72 93 Physical Exam Const: No acute Head: Atraumatic Eyes: Normal Conjunctiva ENT: Normal External Ears, Nose and Mouth. Neck: Full range of motion..~ No meningismus. Resp: Clear to auscultation bilaterally Cardio: Regular rate and rhythm, no murmurs Abd: Soft, non tender, non distended. Normal bowel sounds Skin: No petechiae or rashes Back: No midline or flank tenderness Ext: No cyanosis, or edema Neur: Awake and alert Psych: Normal Mood and Affect Result Diagram: 12/26/16 1625 12/26/16 1625 Results 24 hrs Laboratory Tests Test 12/26/16 16:25 White Blood Count 7.910^3/ul Red Blood Count 3.0810^6/ul Hemoglobin 9.8g/dl Hematocrit 29.0% Mean Corpuscular Volume 94.2fl Mean Corpuscular Hemoglobin 31.8pg Mean Corpuscular Hemoglobin Concent 33.8g/dl Red Cell Distribution Width 15.5% Platelet Count 68501^3/UL Mean Platelet Volume 10.6fl Neutrophils % 65.3% Lymphocytes % 17.4% Monocytes % 15.1% Eosinophils % 1.3% Basophils % 0.4% Nucleated Red Blood Cells % 0.0/100WBC Neutrophils # 5.210^3/ul Lymphocytes # 1.410^3/ul Monocytes # 1.210^3/ul Eosinophils # 0.110^3/ul Basophils # 0.010^3/ul Nucleated Red Blood Cells # 0.010^3/ul Prothrombin Time 13.9Sec Prothrombin Time Ratio 1.1 INR International Normalized Ratio 1.07 Activated Partial Thromboplast Time 34.7Sec Sodium Level 137mmol/L Potassium Level 5.2mmol/L Chloride Level 91mmol/L Carbon Dioxide Level 27mmol/L Anion Gap 24 Blood Urea Nitrogen 78mg/dl Creatinine 10.68mg/dl Glucose Level 195mg/dl Calcium Level 7.6mg/dl Troponin I 0.039ng/ml Current Medications Medications (Trade) Dose Ordered Sig/Sita Route PRN Reason Start Time Stop Time Status Last Admin Dose Admin Acetaminophen/ Hydrocodone Bitart ([place] (5/325)) 1 tab ONCE ONCE PO 12/26/16 17:00 12/26/16 17:01 DC 12/26/16 16:45 Procedures/MDM EKG: Rate/Rhythm: [Normal Sinus Rhythm] QRS, ST, T-waves: [No changes consistent w/ acute ischemia] Impression: [No evidence of ischemia or arrhythmia] Chest X-ray 1V Interpreted by me: Soft Tissue: No acute abnormalities Bones: No acute abnormalities Mediastinum/Cardiac Silhouette/Lungs: [No acute abnormalities] X-ray Finger 2V Interpreted by me: Bones: [No fracture] Joints: [No dislocation] Foreign body: [None] This 66-year-old male presents to the ER for evaluation of total body pain and generalized weakness. The patient had lab work drawn in the emergency room. The patient's potassium is within normal limits and is less than 5.5 at this time. The patient has no signs of EKG changes at this time. The patient was given [place] for body pain and all my reevaluation he does say he is feeling slightly better. The patient will be discharged at this time with instructions to make an appointment for dialysis for tomorrow or return to the ER if he is not feeling better. Departure Diagnosis: Primary Impression: Acute weakness Additional Impression: End stage renal disease Condition: Stable RONAN PIMENTEL DO Dec 26, 2016 18:01
[2016-12-26] MEDS ORDERED: ACET1TAB40 PO (18:03)
[2016-12-26 18:52] VITALS: BP 149/78; PULSE 67; RESP 20; TEMP 98.7
== END 2016-12-26 18:55 | disposition home or self-care (01) ==
LOC: E/R 14:58
DX: R53.1 Weakness (principal); I12.0 Hypertensive chronic kidney disease with stage 5 chronic kidney disease or end stage renal disease; N18.6 End stage renal disease; E11.9 Type 2 diabetes mellitus without complications; Z79.4 Long term (current) use of insulin; Z79.82 Long term (current) use of aspirin; Z99.2 Dependence on renal dialysis
CPT/HCPCS: 36415; 71010; 73140; 80048; 82962; 84484; 85025; 85610; 85730; 93005

== ENCOUNTER 2017-05-03 15:47 | Emergency (ER) | payer MEDICARE, OTHER ==
[~2017-05-03] VITALS: Ht 157.5 cm; Wt 84.3 kg
[~2017-05-03 15:47] MED LIST changes: +ACET1TAB40 PO
[2017-05-03 15:55] VITALS: Ht 157.5 cm; Wt 84.3 kg
== END 2017-05-03 21:22 | disposition left against medical advice (07) ==
LOC: E/R 15:47
DX: Z53.21 Procedure and treatment not carried out due to patient leaving prior to being seen by health care provider (principal)